=== PATIENT | female | born 1990 | race Caucasian/White ===

== ENCOUNTER 2016-04-18 17:28 | Observation (INO) ==
[2016-04-18 18:15] LABS: Bilirubin,Urine Negative (Negative); Blood,Urine Negative (Negative); Clarity,Urine Cloudy (Clear); Color,Urine Yellow (Yellow); Glucose,Urine (UA) Normal (Normal); Ketones,Urine Negative (Negative); Leukocyte Esterase,Urine Negative (Negative); Nitrite,Urine Negative (Negative); PH,Urine 7.5 pH Units (5.0-8.0); Protein,Urine Negative (Neg-Trace); Specific Gravity,Urine 1.011 (1.010-1.025); Urobilinogen,Urine Normal (Normal)
[2016-04-18 18:19] LABS: Bacteria,Urine Few per hpf (None-Few); RBC,Urine 0-3 per hpf (0-3); Squamous Epithelial Cell,Urine Many per lpf (None-Few)
--- NOTE | 2016-04-18 18:33 | OB/GYN Progress Note ---
Date of Encounter: 04/18/16 Time of Encounter: 18:30 - Assessment and Plan (1) 37 weeks gestation of Current Visit: Yes Status: Acute admit for observation (2) Nausea and vomiting in Current Visit: Yes Status: Acute triage for dehydration Subjective - Subjective Principal diagnosis: nausea and vomiting Interval history: Patient is 25 yo at 37w6d presents to labor and delivery with c/o nausea and vomiting since last week. Patient states she tried phenergan at home but was unable to keep it down. Patient reports +fm and irregular contractions. Patient denies LOF or vaginal bleeding, denies urinary symptoms. Antepartum ROS: movement normal, contractions, no loss of fluid, no vaginal bleeding Objective - Vital Signs Vital Signs: Intake and Output 04/18/16 04/18/16 04/18/16 07:59 15:59 23:59 Other: Weight 94.9 kg Patient Weight 04/18/16 23:59 Weight 94.9 kg - Exam FHR: auscultation normal, category 1 FHR comments: 145 bpm moderate variability + 15x15 accels no decels noted at this time. Abdomen: Present: normal appearance, soft, gravid Uterus: Present: normal, firm Cervical dilation: 1.5 per RN Cervix effacement: thick station: -2
[2016-04-18] MEDS ORDERED: Ondansetron ODT 4 MG TAB.RAPDIS SL PRN (18:36)
[2016-04-18 18:44] LABS: Hyaline Casts,Urine Few per lpf (None-Few)
--- NOTE | 2016-04-18 19:40 | Discharge Summary ---
Date of Encounter: 04/18/16 Time of Encounter: 19:42 - Discharge Diagnosis (1) 37 weeks gestation of Priority: Secondary Status: Acute (2) Nausea and vomiting in Priority: Primary Status: Acute (3) NST (non-stress test) reactive Priority: Primary Status: Acute Comments: reactive NST - Discharge Medications Prescriptions: Ondansetron [Zofran ODT] 8 mg SL Q6HR #10 tab.rapdis Home Medications: Tablet 1 tab PO DAILY 12/26/15 [History] Famotidine [Pepcid] 1 tab PO BID 04/18/16 [History] Ondansetron [Zofran ODT] 8 mg SL Q6HR #10 tab.rapdis 04/18/16 [Rx] Promethazine [Phenergan] 1 tab PO PRN PRN 04/18/16 [History] Allergies/Adverse Reactions: Allergies No Known Allergies Allergy (Verified 12/21/14 22:48) Data Procedures and tests throughout hospitalization: Laboratory Tests 04/18/16 18:05 Urine Color Yellow Urine Clarity Cloudy A Urine pH 7.5 Ur Specific Gladys 1.011 Urine Protein Negative Urine Glucose (UA) Normal Urine Ketones Negative Urine Blood Negative Urine Nitrite Negative Urine Bilirubin Negative Urine Urobilinogen Normal Ur Leukocyte Esterase Negative Urine Microscopic RBC 0-3 Urine Microscopic WBC 3-5 H Ur Squamous Epith Cells Many H Urine Bacteria Few Hyaline Casts Few Labs on day of discharge: Labs from last 24 hours 04/18/16 18:05 Urine Color Yellow Urine Clarity Cloudy A Urine pH 7.5 Ur Specific Gladys 1.011 Urine Protein Negative Urine Glucose (UA) Normal Urine Ketones Negative Urine Blood Negative Urine Nitrite Negative Urine Bilirubin Negative Urine Urobilinogen Normal Ur Leukocyte Esterase Negative Urine Microscopic RBC 0-3 Urine Microscopic WBC 3-5 H Ur Squamous Epith Cells Many H Urine Bacteria Few Hyaline Casts Few Date of admission: 04/18/16 17:28 - Patient Status Disposition: Home, Self-Care Condition: Good Functional capacity at discharge: independent ambulation - Discharge Instructions Follow Up With: Elizabeth Jean CNM [Non-Partnered Physician] - - Diet and Activity Activity: increase activity as tolerated Diet: regular diet 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 Patient given Zofran ODT. Patient reports she feels better and is ready to go home. Will sent home with a RX for Felice ODT. Patient to follow up as scheduled. Time Attestation: Total time spent providing and/or coordinating discharge services: Time Spent: Less than 30 minutes - VTE Reasons for not Prescribing Prophylaxis: Treatment not Indicated - Low risk for VTE
== END 2016-04-18 19:56 | disposition home or self-care (01) ==
LOC: 1NENULAB
PROVIDERS: ADMIT Obstetrics & Gynecology; ATTEND Obstetrics & Gynecology

== ENCOUNTER 2016-04-26 04:00 | Inpatient (IN) ==
[2016-04-26] MEDS ORDERED: Famotidine 20 MG/2 ML VIAL IVP PRN (04:26)
[2016-04-26] MEDS ORDERED: Metoclopramide 10 MG/2 ML VIAL IVP PRN (04:26)
[2016-04-26] MEDS ORDERED: Ringers Solution, Lactated 1,000 ML IVC SCH (04:30)
[2016-04-26] MEDS ORDERED: miSOPROStol 25 MCG TABLET PO ONE (04:40)
[2016-04-26] MEDS ORDERED: FLUZONE IM ONE (04:40)
[2016-04-26] MEDS ORDERED: Mag Hydrox/Al Hydrox/Simeth 30 ML UDC PO PRN ×2 (04:54→12:06)
[2016-04-26 04:56] LABS: Basophils % 0.2 %; Eosinophils # 0.2 K/mcL (0.0-0.6); Eosinophils % 1.8 %; Hematocrit 29.5 % (35.3-44.9); Hemoglobin 9.7 g/dL (11.5-15.4); Immature Granulocytes % 0.9 % (0-4); Lymphocytes # 2.7 K/mcL (0.6-4.6); Lymphocytes % 22.8 %; Mean Corpuscular HGB Conc 32.9 g/dL (31.6-35.5); Mean Corpuscular Hemoglobin 27.2 pg (28.0-33.3); Mean Corpuscular Volume 82.6 fL (83.0-100.0); Mean Platelet Volume 10.9 fL (9.4-12.4); Monocytes # 0.7 K/mcL (0.0-1.3); Monocytes % 6.2 %; Neutrophils # 8.1 K/mcL (1.6-8.9); Platelet Count 272 K/mcL (140-400); Red Blood Count 3.57 M/mcL (3.82-4.97); Red Cell Distribution Width 13.1 % (11.5-14.5); Segmented Neutrophils % 68.1 %
[2016-04-26] MEDS ORDERED: Mag Hydrox/Al Hydrox/Simeth 30 ML UDC PO ONE (06:00)
--- NOTE | 2016-04-26 07:54 | OB/GYN History & Physical ---
Date of Encounter: 04/26/16 Time of Encounter: 07:46 Assessment and Plan (1) 39 weeks gestation of Current visit: Yes Status: Acute Admit for IOL. Cytotec 50mcg given PO. AROM when able. GBS negative. Epidural when requested. Anticipate . (2) Placental abnormality in third trimester Current visit: Yes Status: Acute (3) Obesity affecting Current visit: Yes Status: Acute History of Present Illness Chief complaint: 39 weeks, elective IOL, grade III placenta HPI: Ms. Martinez is a 25 year old female presenting at 39 weeks for IOL. She was noted to have a grade III placenta and delivery before 40 weeks was recommended. Her has been complicated by obesity. Her blood type is A positive. Rubella immune. Serologies and GBS negative. Past Med Surg Social Fam HX - Past Medical History Medical history: kidney stones, migraine Psychiatric history: anxiety - Past Surgical History Surgical History: other - Social History Smoking Status: Current some day smoker Packs per day: .5 Smokeless Tobacco Status: No Alcohol use: none Drug use: none - Family History Mother Age: 42 Family Member Ethnicity: Non- Living Status: Still Living Hx Family Cardiac Disorders: No Hx Family Respiratory Disorders: No Hx Family Cancer: No Hx Family GI Disorders: No Hx Family Genitourinary Disorders: No Hx Family Endocrine Disorder: No Hx Family Musculoskeletal Disorders: No Hx Family Neuromuscular Disorders: No Hx Family Neurologic Disorders: No Hx Family HEENT Disorders: No Hx Family Autoimmune Disorders: No Hx Family Reproductive Disorders: No Hx Family Psychosocial Disorders: No Hx Family Medical Disorders: No Obstetrical History - Pregnancies : 2 Para: 1 Term: 1 Livin Medications and Allergies Tablet 1 tab PO DAILY 12/26/15 [History] Famotidine [Pepcid] 1 tab PO BID 04/18/16 [History] Ondansetron [Zofran ODT] 8 mg SL Q6HR #10 tab.rapdis 04/18/16 [Rx] Promethazine [Phenergan] 1 tab PO PRN PRN 04/18/16 [History] Allergies No Known Allergies Allergy (Verified 12/21/14 22:48) Review of System OB All systems PM: reviewed and no additional remarkable complaints except as stated Exam - Vital Signs Vital signs: Initial Vital Signs Pulse Resp BP 134 14 132/85 04/26/16 04:30 04/26/16 04:30 04/26/16 04:30 - Constitutional Constitutional: well developed, well nourished, no acute distress, average body habitus - HEENT HEENT: Mucus Membranes Moist - Lungs Respiratory exam: CTAB - Cardiovascular Cardiovascular exam: RRR, +S1, +S2 - Abdomen Abdomen: Present: gravid, non tender - Extremities Extremities exam: normal inspection - Vulva Vulva: bilateral: normal - Vagina Vagina: Present: normal moisture - Anus/Rectum Anus/Rectum: Present: normal perianal skin Results Result Diagrams: 04/26/16 04:45 Abnormal lab results WBC 11.9 K/mcL (4.3-11.1) H 04/26/16 04:45 RBC 3.57 M/mcL (3.82-4.97) L 04/26/16 04:45 Hgb 9.7 g/dL (11.5-15.4) L 04/26/16 04:45 Hct 29.5 % (35.3-44.9) L 04/26/16 04:45 MCV 82.6 fL (83.0-100.0) L 04/26/16 04:45 MCH 27.2 pg (28.0-33.3) L 04/26/16 04:45 All other labs normal. - VTE Reasons for not Prescribing Prophylaxis: Treatment not Indicated - Low risk for VTE
--- NOTE | 2016-04-26 08:21 | OB Labor Progress Note ---
Date of Encounter: 04/26/16 Time of Encounter: 08:21 Labor Progress Note - Subjective Subjective: Patient resting in bed, denies any pain at this time. Discussed POC with patient. Patient denies any questions or concerns. - Cervix Cervix: 3.5/80/-1 - Heart Tones Heart Tones: CAT 1 tracing - Cementon Cementon: irregular - Interventions Interventions: SVE, AROM large amount of clear fluid. Patient tolerated well. - Plan Plan: Continue labor management. Patient may have Nubain or Epidural for pain management.
[2016-04-26] MEDS ORDERED: Ondansetron 4 MG/2 ML VIAL IVP PRN (08:30)
[2016-04-26] MEDS ORDERED: Ringers Solution, Lactated 500 ML IVC ONE (08:30)
[2016-04-26] MEDS ORDERED: Epidural Premix (fent/bupiv) 110 ML EP SCH (08:30)
[2016-04-26] MEDS ORDERED: EPHEDrine 50 MG/ML VIAL IVP PRN (08:30)
--- NOTE | 2016-04-26 08:30 | Anesthesia Evaluation PreOp ---
Date of Encounter: 04/26/16 Time of Encounter: 08:28 - Past History Planned Operation: JERE Cardiac History: Denies any Significant Hx Pulmonary History: Smoker, Pack/yr (1/2PPD) OPHTHALMOLOGY TECHNICIAN History: Denies Any Significant HX Other Medical History: Renal (kidney stones) Anesthesia History: No Prior Anesthetic Complications, Past Anesthesia : Yes Alcohol Use: none Drug use: none Medications and Allergies Tablet 1 tab PO DAILY 12/26/15 [History] Famotidine [Pepcid] 1 tab PO BID 04/18/16 [History] Ondansetron [Zofran ODT] 8 mg SL Q6HR #10 tab.rapdis 04/18/16 [Rx] Promethazine [Phenergan] 1 tab PO PRN PRN 04/18/16 [History] Allergies No Known Allergies Allergy (Verified 12/21/14 22:48) - Meds/Allergy Pre-op Review Medications Reviewed: Yes Allergies Reviewed: Yes Beta Blockers on Current Med List: No Anesthesia Results - Labs 04/26/16 04:45 Anesthesia Exam Height: 1.55 Weight: 94.3 NPO (# of Hours): 6 Pain Scale: 7 Pain Scale Used: Numeric (1 - 10) - HEENT Pupil (Motor): Pupils equal Mallampati: II Teeth: Normal Oral Opening: Greater than 3 - OPHTHALMOLOGY TECHNICIAN LOC: Oriented OPHTHALMOLOGY TECHNICIAN Motor: Normal RUE, Normal LUE, Normal RLE, Normal LLE, Normal Face OPHTHALMOLOGY TECHNICIAN Sensory: Normal: RUE, LUE, RLE, LLE, Face - Cardiac Rhythm: Regular Murmur: None JVD: No Carotid Bruit: No - Pulmonary Breath Sounds: bilateral Clear Respiratory Effort: Symmetrical Anesthesia Assess/Plan ASA Score: 2 Modified Marydel Scale for Level of Consciousness: Cooperative, oriented, and tranquil Anesthetic Plan: General (plan b), Regional (plan a) Autologous Blood: Yes Monitoring Plan: Standard Monitors
[2016-04-26] MEDS ORDERED: Epidural Premix (fent/bupiv) 110 ML EP ONE (08:50)
[2016-04-26] MEDS ORDERED: Oxytocin 20 units/ LR 1000 mL 20 UNIT/1,000 ML BAG IVC SCH (12:30)
--- NOTE | 2016-04-26 12:30 | OB Labor Progress Note ---
Date of Encounter: 04/26/16 Time of Encounter: 12:28 Labor Progress Note - Subjective Subjective: Patient resting, patient reports she is starting to feel contractions. Discussed POC with patient. Patient educated on epidural button for pain relief. - Cervix Cervix: 5/80/-1 - Heart Tones Heart Tones: 135 bpm moderate variability +15x15 accels no decels noted. CAt. 1 tracing. - Reedsburg Reedsburg: 2-3 min apart - Interventions Interventions: SVE, IUPC placed without difficulty patient tolerated well. - Plan Plan: Continue labor management. Will start Pitocin if needed to achieve adequate labor pattern.
[2016-04-26] MEDS ORDERED: Oxytocin 20 units/ LR 1000 mL 20 UNIT/1,000 ML BAG IVC ONE ×2 (12:31→17:31)
--- NOTE | 2016-04-26 13:14 | Anesthesia Procedures ---
Date of Encounter: 04/26/16 Time of Encounter: 08:45 Procedures: Anesthesia - Epidural/Spinal Patient ID/Chart reviewed: Yes Patient examined: Yes OB Eval: Gestational age: 39 OB Eval: : 2 OB Eval: Hx Para: 1 OB Eval: Dilated at (cm): 4 OB Eval: Contractions: Non-stressed pattern Consent Obtained: Yes Supplemental Oxygen: None/Room Air Site Prep: Aseptic Technique, Sterile prep and drape, Povidone-Iodine 1% Patient position: upright Local Anesthetic: Lidocaine 1% Amount of Local Anesthetic used: 3 Touhy Needle Gauge: 18 Touhy Needle Depth (cm): 8 Catheter Depth at Skin (cm): 14 Test Dose (1.5% Lido + Epi): Volume given (mls): 5 Test Dose Result: Negative Loading Dose: Other: 10mls for epidural pharm bag premix solution Loading Dose Administered: Thru Catheter Infusion Med: 0.125% Bupivacaine w/ 2 mcg/ml Fentanyl Infusion Rate (mls/hr): [address]: Tegaderm, Tape Interspace Used: L3-L4 Loss of Resistance (ARBEN): Yes Blood: No CSF: No Paresthesia: No Procedure: pt tolerated procedure well. no complications. vss. see qs for complete vitals.
[2016-04-26] MEDS ORDERED: Lidocaine/EPI 1:200k 2% PF 10 ML VIAL ONE ×2 (14:00→14:24)
[2016-04-26] MEDS ORDERED: *HR* FentaNYL (PF) 100 MCG/2 ML VIAL ONE (14:00)
--- NOTE | 2016-04-26 15:10 | Anesthesia Progress Note ---
Date of Encounter: 04/26/16 Time of Encounter: 14:00 Anesthesia Note - Note Note: 04/26/16 15:08 called for increased pain during contractions. bolus given of 12ml of 2% lidocaine with epi with 100mcg fentanyl. pt states it is all back pain. dilated at 8 cm
[2016-04-26] MEDS ORDERED: Ibuprofen 600 MG TABLET PO ONE (15:24)
--- NOTE | 2016-04-26 15:33 | OB/GYN Procedure Note ---
Delivery - Delivery Date: 04/26/16 Provider: Daysi Moore (Geraldo Solorio assist) Intrapartum events: none Delivery induction: AROM, oxytocin, misoprostol Delivery monitor: external FHT, internal uterine Anesthesia: epidural Estimated Blood Loss: 300 - Infant (s) Infant A Infant Delivery Date: 04/26/16 Infant Delivery Time: 14:45 Presentation: vertex Position: CASIMIRO Gender: Female Viability: Viable Pounds: 6 Ounces: 5 Weight Gram: 2870 kg at 1 minute: 8 at 5 mins: 9 Shoulder Dystocia: not encountered Placenta: spontaneous, uterine exploration Cord: 3 umbilical vessels - Repair Episiotomy: none Laceration Description: Superficial (periurethral) - Complications Delivery complications: none Delivery comments: Called to LDR patient a rim but is unable to hold back from pushing. Patient progressed to complete, perineum was prepped and draped. Patient delivered female infant no nuchal, no meconium, no shoulder dystocia encountered. Cord was clamped and cut after pulsation ceased. Stella Hewitt D.O. at bedside and assisted with delivery. Only superficial lacerations were noted and did not require repair. Infant was placed skin to skin both Mother and baby are stable in recovery. - Disposition Mom disposition: stable in LDR disposition: stable in LDR
[2016-04-26] MEDS ORDERED: Benzocaine/Menthol 56 GM AEROSOL SPRAY TP PRN (17:31)
[2016-04-26] MEDS ORDERED: Acetaminophen 325 MG TABLET PO PRN (17:31)
[2016-04-26] MEDS ORDERED: Lanolin 7 G OINT...G. TP PRN (17:31)
[2016-04-26] MEDS ORDERED: Oxytocin 20 units/ LR 1000 mL 20 UNIT/1,000 ML BAG IV SCH (17:31)
[2016-04-26] MEDS: *HR* HYDROcodone/Acet 5/325 mg TABLET PO PRN (18:27)
[2016-04-27] MEDS: Ibuprofen 600 MG TABLET PO PRN ×3 (00:44→20:24)
[2016-04-27 03:29] LABS: Basophils % 0.2 %; Eosinophils # 0.2 K/mcL (0.0-0.6); Eosinophils % 1.1 %; Hematocrit 25.1 % (35.3-44.9); Immature Granulocytes % 0.5 % (0-4); Lymphocytes % 21.3 %; Mean Corpuscular HGB Conc 31.9 g/dL (31.6-35.5); Mean Corpuscular Hemoglobin 27.4 pg (28.0-33.3); Mean Platelet Volume 11.2 fL (9.4-12.4); Monocytes # 0.9 K/mcL (0.0-1.3); Monocytes % 6.2 %; Platelet Count 275 K/mcL (140-400); Red Blood Count 2.92 M/mcL (3.82-4.97); Red Cell Distribution Width 13.3 % (11.5-14.5); Segmented Neutrophils % 70.7 %
[2016-04-27] MEDS: *HR* HYDROcodone/Acet 5/325 mg TABLET PO PRN (06:27)
[2016-04-27] MEDS: Prenatal Vit/FA 1 EACH TABLET PO SCH (07:40)
--- NOTE | 2016-04-27 10:42 | OB/GYN Progress Note ---
Date of Encounter: 04/27/16 Time of Encounter: 10:40 - Assessment and Plan (1) Status post vaginal delivery Current Visit: Yes Status: Resolved patient doing well, baby having issues with latching so may stay one more night, ambulation encouraged, cont current inpt care. Subjective - Subjective Patient reports: appetite normal, voiding normally, pain well controlled, ambulating normally : other (lochia is light, tolerating PO intake without issues, having difficulty latching on) Objective - Latest Vital Signs Latest vital signs: Vital Signs Temp Pulse Pulse Resp BP Pulse Ox 04/27/16 07:52 98.1 F 92 92 16 115/80 97 04/27/16 04:16 98 F 100 16 130/70 98 04/27/16 01:15 97.9 F 98 18 118/78 98 04/26/16 19:40 98.5 F 93 16 113/74 98 04/26/16 18:30 97.6 F 102 16 118/79 98 04/26/16 17:30 98.2 F 110 16 120/68 99 Intake and Output 04/26/16 04/27/16 04/27/16 23:59 07:59 15:59 Intake Total 550 / 550 240 / 240 Output Total 200 / 200 700 / 700 Balance -200 / -200 -150 / -150 240 / 240 Intake: Oral 550 / 550 240 / 240 Output: Urine 200 / 200 700 / 700 Other: Meal Breakfast Percent of Meal Consumed 100% Weight 90.6 kg - Exam Lungs: bilateral: normal Chest: Normal S1, Normal S2 Extremities: Present: normal Abdomen: Present: normal appearance, soft Uterus: Present: normal - Labs Labs: Laboratory Results - last 24 hr 04/27/16 02:52 WBC 14.2 H RBC 2.92 L Hgb 8.0 L D Hct 25.1 L MCV 86.0 MCH 27.4 L MCHC 31.9 RDW 13.3 Plt Count 275 MPV 11.2 Immature Gran % 0.5 Seg Neutrophils % 70.7 Lymphocytes % 21.3 Monocytes % 6.2 Eosinophils % 1.1 Basophils % 0.2 Neutrophils # 10.0 H Lymphocytes # 3.0 Monocytes # 0.9 Eosinophils # 0.2 Basophils # 0.0
[2016-04-28] MEDS: Ibuprofen 600 MG TABLET PO PRN (03:29)
[2016-04-28] MEDS: Prenatal Vit/FA 1 EACH TABLET PO SCH (07:43)
[2016-04-28 08:12] VITALS: BP 108/73
--- NOTE | 2016-04-28 08:36 | Discharge Summary ---
Date of Encounter: 04/28/16 Time of Encounter: 08:34 - Discharge Diagnosis (1) Status post normal vaginal delivery Priority: Primary Status: Acute Comments: Patient is 2 days status post normal vaginal delivery. There was concerns with baby latching however patient reports baby has been doing well with bottle feeding. She reports that she is going well and the pain is controlled. She has been up ambulating appropriately. She is tolerating a normal diet and bowel /bladder function intact. Patient will be discharged home. - Discharge Medications Prescriptions: Breast Pump [BREAST PUMP] 1 each .ROUTE AD #1 each Ferrous Sulfate 325 mg PO DAILY 30 Days Home Medications: Tablet 1 tab PO DAILY 12/26/15 [History] Famotidine [Pepcid] 1 tab PO BID 04/18/16 [History] Ondansetron [Zofran ODT] 8 mg SL Q6HR #10 tab.rapdis 04/18/16 [Rx] Promethazine [Phenergan] 1 tab PO PRN PRN 04/18/16 [History] Breast Pump [BREAST PUMP] 1 each .ROUTE AD #1 each 04/28/16 [Rx] Ferrous Sulfate 325 mg PO DAILY 30 Days 04/28/16 [Rx] Allergies/Adverse Reactions: Allergies No Known Allergies Allergy (Verified 12/21/14 22:48) Data Procedures and tests throughout hospitalization: Laboratory Tests 04/26/16 04/27/16 04:45 02:52 WBC 11.9 H 14.2 H RBC 3.57 L 2.92 L Hgb 9.7 L 8.0 L D Hct 29.5 L 25.1 L MCV 82.6 L 86.0 MCH 27.2 L 27.4 L MCHC 32.9 31.9 RDW 13.1 13.3 Plt Count 272 275 MPV 10.9 11.2 Immature Gran % 0.9 0.5 Seg Neutrophils % 68.1 70.7 Lymphocytes % 22.8 21.3 Monocytes % 6.2 6.2 Eosinophils % 1.8 1.1 Basophils % 0.2 0.2 Neutrophils # 8.1 10.0 H Lymphocytes # 2.7 3.0 Monocytes # 0.7 0.9 Eosinophils # 0.2 0.2 Basophils # 0.0 0.0 Date of admission: 04/26/16 04:07 Primary care physician: Jillian White Consults: 04/26/16 17:31 Consult to Alligator Trapper [CONS] Routine Comment: Vaginal delivery, consult needed Discharging clinician: Deep Perez Anticipated date of discharge: 04/28/16 - Patient Status Disposition: Home, Self-Care Condition: Good Functional capacity at discharge: independent ambulation Overall status at discharge: patient is back to baseline - Discharge Instructions Instructions: Vaginal Delivery (DC) Follow Up With: Jillian White, CASEWORK SPECIALIST [Primary Care Provider] - - Diet and Activity Activity: increase activity as tolerated Diet: advance to your usual diet Hospital Course Reason for admission: induction of labor Delivery: Episiotomy: none Other procedures: none complications: none Hospital course: Ms Martinez is a 25yo female who presented at 39 weeks for induction of labor due to grade III placenta. Patient had successfully spontaneous vaginal delivery on 04/26/2016. There was some difficulty with baby latching however patient reports improvement with bottle feeding. Patient is doing well and will be discharged home today. Time Attestation: Total time spent providing and/or coordinating discharge services: Exam - Constitutional Vitals: Temp Pulse Resp BP Pulse Ox 97.6 F 71 16 108/73 97 04/28/16 07:30 04/28/16 07:30 04/28/16 07:30 04/28/16 07:30 04/27/16 20:25 General appearance IM: A&O X 3, no acute distress, answers questions appropriately - Respiratory Respiratory exam: Present: CTAB - Cardiovascular Cardiovascular exam IM: Present: RRR - GI/Abdominal GI/Abdominal exam IM: normal bowel sounds, tenderness - Extremities Exam Extremities exam IM: Present: full ROM - Neurological Exam Neurological exam: alert, CN II-XII intact, oriented X3
[2016-04-28] MEDS ORDERED: FLUZONE IM ONE (10:00)
== END 2016-04-28 11:45 | disposition home or self-care (01) | DRG 560 ==
LOC: 1NENULAB 04:07 → 1NENUOBS 17:30
PROVIDERS: ADMIT Registered Nurse; ATTEND Registered Nurse

== ENCOUNTER 2016-05-27 13:59 | Observation (INO) ==
[2016-05-27] MEDS ORDERED: *HR* HYDROmorphone (PF) 1 MG/ML SYRINGE IVP ONE (15:09)
[2016-05-27] MEDS ORDERED: 0.9 % Sodium Chloride 1,000 ML IVC ONE (15:09)
[2016-05-27] MEDS ORDERED: Ondansetron 4 MG/2 ML VIAL IVP ONE (15:09)
[2016-05-27 15:21] LABS: Bilirubin,Urine Negative (Negative); Blood,Urine Trace (Negative); Clarity,Urine Clear (Clear); Color,Urine Yellow (Yellow); Glucose,Urine (UA) Normal (Normal); Ketones,Urine Negative (Negative); Leukocyte Esterase,Urine Small (Negative); Nitrite,Urine Negative (Negative); Protein,Urine Negative (Neg-Trace); Specific Gravity,Urine 1.023 (1.010-1.025); Urobilinogen,Urine Normal (Normal)
[2016-05-27 15:25] LABS: Bacteria,Urine None Seen per hpf (None-Few); Hyaline Casts,Urine None Seen per lpf (None-Few); Squamous Epithelial Cell,Urine Many per lpf (None-Few)
[2016-05-27 15:30] LABS: Basophils % 0.1 %; Eosinophils # 0.4 K/mcL (0.0-0.6); Eosinophils % 4.7 %; Hematocrit 33.1 % (35.3-44.9); Hemoglobin 10.1 g/dL (11.5-15.4); Immature Granulocytes % 0.4 % (0-4); Lymphocytes # 2.7 K/mcL (0.6-4.6); Lymphocytes % 32.1 %; Mean Corpuscular HGB Conc 30.5 g/dL (31.6-35.5); Mean Corpuscular Hemoglobin 25.1 pg (28.0-33.3); Mean Corpuscular Volume 82.3 fL (83.0-100.0); Mean Platelet Volume 10.9 fL (9.4-12.4); Monocytes # 0.5 K/mcL (0.0-1.3); Monocytes % 5.4 %; Neutrophils # 4.8 K/mcL (1.6-8.9); Platelet Count 361 K/mcL (140-400); Red Blood Count 4.02 M/mcL (3.82-4.97); Red Cell Distribution Width 14.4 % (11.5-14.5); Segmented Neutrophils % 57.3 %
--- NOTE | 2016-05-27 15:30 | Emergency Department Note ---
Disposition Clinical Impression: Nephrolithiasis, Flank pain Disposition: Admitted As Inpatient Condition: Good Instructions: Kidney Stones (ED) Referrals: Jillian White CNP [Primary Care Provider] - Forms: Work/School Release, ED Satisfaction Letter General Adult HPI - General Chief complaint: ED Abdominal Pain Stated complaint: kidney stone, increased pain Source: patient Limitations: no limitations Nursing Notes Reviewed: Yes Vital Signs Reviewed: Yes - History of Present Illness HPI Narrative: 25 y/o female diagnosed with a 5mm stone in the left UVJ 2 [place] ago at [place]. She reports not taking her pain medication because she is breastfeading. She reports increased pain and emailed the urology office who recommeded coming to the ER. She had a long history of biliary colic and says she has had increased RUQ pain but is not currently having any pain there. She says her pain is still in the right flank. No fever or diarrhea. No new symptoms. Radiation: non-radiation Pain Severity: moderate Pain Scale: 7 Consistency: constant Improves with: nothing Worsens with: nothing Associated symptoms: Reports: denies other symptoms Treatments Prior to Arrival: none - Related Data Home Medications Medication Instructions Recorded Confirmed Tablet 1 tab PO DAILY 12/26/15 05/25/16 Famotidine [Pepcid] 1 tab PO BID 04/18/16 05/25/16 Previous Rx's Medication Instructions Recorded Breast Pump [BREAST PUMP] 1 each .ROUTE AD #1 each 04/28/16 Acetaminophen w/Cod 300-30 mg 1 each PO Q6HR #12 tablet 05/19/16 [Tylenol w/Codeine #3] Metoclopramide [Reglan] 10 mg PO QIDAC #30 tablet 05/19/16 Ondansetron HCl [Zofran] 4 mg PO Q6H #30 tablet 05/19/16 OxyCODONE/APAP 5/325 [Percocet 1 each PO Q6HR PRN #10 tablet 05/25/16 5/325 MG] Allergies Allergy/AdvReac Type Severity Reaction Status Date / Time No Known Allergies Allergy Verified 12/21/14 22:48 All systems ED: reviewed and negative except as stated. Constitutional: Denies: fever Eyes: Denies: vision change ENT ED: Denies: throat pain Cardiovascular: Denies: chest pain Respiratory: Denies: cough Gastrointestinal: Reports: nausea. Denies: abdominal pain, vomiting, diarrhea Genitourinary: Denies: dysuria Integumentary: Denies: rash Past Medical History - Past Medical History Medical history: Reports: kidney stones, migraine Surgical history: Reports: other Psychiatric history: Reports: anxiety TRACK SUPERVISOR history: Reports: no TRACK SUPERVISOR history - Social History Smoking Status: Former smoker Smokeless Tobacco Status: No Alcohol use: Reports: none Drug use: Reports: none Physical Exam - General Limitations: no limitations General appearance: alert - Head Head exam: atraumatic - Eye Eye exam: Present: normal appearance, PERRL, EOMI - ENT ENT exam: normal exam, normal oropharynx - Neck Neck exam: Present: normal inspection - Respiratory Respiratory exam: Present: normal lung sounds bilaterally. Absent: respiratory distress - Cardiovascular Cardiovascular exam: Present: regular rate, normal rhythm - Abdominal Exam Abdominal exam: Present: soft, Non-Tender. Absent: distention, guarding, Sal 's sign - Extremities Exam Extremities exam: Present: normal inspection - Back Exam Back exam: Present: CVA tenderness (L). Absent: CVA tenderness (R) - Neurological Exam Neurological exam: Present: alert, oriented X3 - Psychiatric Psychiatric exam: Present: normal affect, normal mood - Skin Skin exam: Present: warm, dry Course Course Narrative: Recent ER visit w/ dx of stone which explains her symptoms. Not currently having a gallbladder flare. She does have discoloration to her lower back which she reports has been there for years due to a heating pad. Will check kidney function and treat her symptoms, check urine and re-evaluate. - Reevaluation(s) Reevaluation #1: Spoke with Dr Eldridge who will accept the patient to his service for pain control and possible stone removal tomorrow Vital Signs Temperature 98.1 F 05/27/16 14:09 Pulse Rate 98 05/27/16 14:09 Respiratory Rate 18 05/27/16 14:09 Blood Pressure 128/61 05/27/16 14:09 O2 Sat by Pulse Oximetry 99 05/27/16 14:09 Temperature 98.1 F 05/27/16 14:09 Pulse Rate 92 05/27/16 14:58 Respiratory Rate 16 05/27/16 14:58 Blood Pressure 122/77 05/27/16 14:58 O2 Sat by Pulse Oximetry 99 05/27/16 14:58 Oxygen Delivery Oxygen Delivery Room Air Medical Decision Making - Medical Records Medical records reviewed: Yes I reviewed the patient's medical records. - Lab Data Lab results reviewed: Yes I reviewed the patient's lab results. Result diagrams: 05/27/16 15:17 Lab Results 05/27/16 05/27/16 05/27/16 Range/Units 15:06 15:06 15:17 WBC 8.4 (4.3-11.1) K/mcL RBC 4.02 (3.82-4.97) M/mcL Hgb 10.1 L (11.5-15.4) g/dL Hct 33.1 L (35.3-44.9) % MCV 82.3 L (83.0-100.0) fL MCH 25.1 L (28.0-33.3) pg MCHC 30.5 L (31.6-35.5) g/dL RDW 14.4 (11.5-14.5) % Plt Count 361 (140-400) K/mcL MPV 10.9 (9.4-12.4) fL Immature Gran % 0.4 (0-4) % Seg Neutrophils % 57.3 % Lymphocytes % 32.1 % Monocytes % 5.4 % Eosinophils % 4.7 % Basophils % 0.1 % Neutrophils # 4.8 (1.6-8.9) K/mcL Lymphocytes # 2.7 (0.6-4.6) K/mcL Monocytes # 0.5 (0.0-1.3) K/mcL Eosinophils # 0.4 (0.0-0.6) K/mcL Basophils # 0.0 (0.0-0.2) K/mcL Urine Color Yellow (Yellow) Urine Clarity Clear (Clear) Urine pH 6.0 (5.0-8.0) pH Units Ur Specific [place] 1.023 (1.010-1.025) Urine Protein Negative (Neg-Trace) mg/dL Urine Glucose (UA) Normal (Normal) mg/dL Urine Ketones Negative (Negative) mg/dL Urine Blood Trace H (Negative) Urine Nitrite Negative (Negative) Urine Bilirubin Negative (Negative) Urine Urobilinogen Normal (Normal) mg/dL Ur Leukocyte Esterase Small H (Negative) Urine Microscopic RBC 3-5 H (0-3) per hpf Urine Microscopic WBC 5-15 H (0-3) per hpf Ur Squamous Epith Cells Many H (None-Few) per lpf Urine Bacteria None Seen (None-Few) per hpf Hyaline Casts None Seen (None-Few) per lpf Ur Culture Indicated? YES A (NO) Urine Test Negative (Negative) - Radiology Data Radiology results reviewed: Yes I reviewed the patient's radiology results.
[2016-05-27] MEDS ORDERED: Ketorolac 30 MG/ML VIAL IVP ONE (15:33)
[2016-05-27 15:51] LABS: Albumin 3.5 g/dL (3.5-5.0); Albumin/Globulin Ratio 1.1 (1.1-2.2); Bilirubin,Direct 0.1 mg/dL (0.0-0.5); Bilirubin,Indirect 0.3 mg/dL (0.0-1.2); Bilirubin,Total 0.4 mg/dL (0.2-1.2); Globulin 3.3 g/dL (2.4-3.5); Total Protein 6.8 g/dL (6.0-8.3)
--- NOTE | 2016-05-27 16:32 | Emergency Department Note ---
Disposition Clinical Impression: Nephrolithiasis Disposition: Home, Self-Care Condition: Good Instructions: Kidney Stones (ED) Referrals: Jillian White CNP [Primary Care Provider] - Forms: ED Satisfaction Letter, Work/School Release General Adult HPI - General Chief complaint: ED Abdominal Pain Stated complaint: kidney stone, increased pain Source: patient Limitations: no limitations - History of Present Illness Pain Scale: 5 Improves with: nothing Worsens with: nothing Associated symptoms: Reports: denies other symptoms Treatments Prior to Arrival: none - Related Data Home Medications Medication Instructions Recorded Confirmed Tablet 1 tab PO DAILY 12/26/15 05/25/16 Famotidine [Pepcid] 1 tab PO BID 04/18/16 05/25/16 Previous Rx's Medication Instructions Recorded Breast Pump [BREAST PUMP] 1 each .ROUTE AD #1 each 04/28/16 Acetaminophen w/Cod 300-30 mg 1 each PO Q6HR #12 tablet 05/19/16 [Tylenol w/Codeine #3] Metoclopramide [Reglan] 10 mg PO QIDAC #30 tablet 05/19/16 Ondansetron HCl [Zofran] 4 mg PO Q6H #30 tablet 05/19/16 OxyCODONE/APAP 5/325 [Percocet 1 each PO Q6HR PRN #10 tablet 05/25/16 5/325 MG] Allergies Allergy/AdvReac Type Severity Reaction Status Date / Time No Known Allergies Allergy Verified 12/21/14 22:48 Constitutional: Denies: fever Eyes: Denies: vision change ENT ED: Denies: throat pain Cardiovascular: Denies: chest pain Respiratory: Denies: cough Gastrointestinal: Reports: nausea. Denies: abdominal pain, vomiting, diarrhea Genitourinary: Denies: dysuria Integumentary: Denies: rash Past Medical History - Past Medical History Medical history: Reports: kidney stones, migraine Surgical history: Reports: other Psychiatric history: Reports: anxiety FILM RECORDIST history: Reports: no FILM RECORDIST history - Social History Smoking Status: Former smoker Smokeless Tobacco Status: No Alcohol use: Reports: none Drug use: Reports: none Physical Exam - General Limitations: no limitations General appearance: alert Course Vital Signs Temperature 98.1 F 05/27/16 14:09 Pulse Rate 98 05/27/16 14:09 Respiratory Rate 18 05/27/16 14:09 Blood Pressure 128/61 05/27/16 14:09 O2 Sat by Pulse Oximetry 99 05/27/16 14:09 Temperature 98.1 F 05/27/16 14:09 Pulse Rate 76 05/27/16 15:56 Respiratory Rate 18 05/27/16 15:56 Blood Pressure 120/83 05/27/16 15:56 O2 Sat by Pulse Oximetry 97 05/27/16 15:56 Oxygen Delivery Oxygen Delivery Room Air Medical Decision Making - Lab Data Result diagrams: 05/27/16 15:17 Lab Results 05/27/16 05/27/16 05/27/16 Range/Units 15:06 15:06 15:17 WBC 8.4 (4.3-11.1) K/mcL RBC 4.02 (3.82-4.97) M/mcL Hgb 10.1 L (11.5-15.4) g/dL Hct 33.1 L (35.3-44.9) % MCV 82.3 L (83.0-100.0) fL MCH 25.1 L (28.0-33.3) pg MCHC 30.5 L (31.6-35.5) g/dL RDW 14.4 (11.5-14.5) % Plt Count 361 (140-400) K/mcL MPV 10.9 (9.4-12.4) fL Immature Gran % 0.4 (0-4) % Seg Neutrophils % 57.3 % Lymphocytes % 32.1 % Monocytes % 5.4 % Eosinophils % 4.7 % Basophils % 0.1 % Neutrophils # 4.8 (1.6-8.9) K/mcL Lymphocytes # 2.7 (0.6-4.6) K/mcL Monocytes # 0.5 (0.0-1.3) K/mcL Eosinophils # 0.4 (0.0-0.6) K/mcL Basophils # 0.0 (0.0-0.2) K/mcL Total Bilirubin (0.2-1.2) mg/dL Direct Bilirubin (0.0-0.5) mg/dL Indirect Bilirubin (0.0-1.2) mg/dL AST (5-34) Units/L ALT (0-55) Units/L Alkaline Phosphatase (38-126) Units/L Serum Total Protein (6.0-8.3) g/dL Albumin (3.5-5.0) g/dL Globulin (2.4-3.5) g/dL Albumin/Globulin Ratio (1.1-2.2) Urine Color Yellow (Yellow) Urine Clarity Clear (Clear) Urine pH 6.0 (5.0-8.0) pH Units Ur Specific [place] 1.023 (1.010-1.025) Urine Protein Negative (Neg-Trace) mg/dL Urine Glucose (UA) Normal (Normal) mg/dL Urine Ketones Negative (Negative) mg/dL Urine Blood Trace H (Negative) Urine Nitrite Negative (Negative) Urine Bilirubin Negative (Negative) Urine Urobilinogen Normal (Normal) mg/dL Ur Leukocyte Esterase Small H (Negative) Urine Microscopic RBC 3-5 H (0-3) per hpf Urine Microscopic WBC 5-15 H (0-3) per hpf Ur Squamous Epith Cells Many H (None-Few) per lpf Urine Bacteria None Seen (None-Few) per hpf Hyaline Casts None Seen (None-Few) per lpf Ur Culture Indicated? YES A (NO) Urine Test Negative (Negative) 05/27/16 Range/Units 15:17 WBC (4.3-11.1) K/mcL RBC (3.82-4.97) M/mcL Hgb (11.5-15.4) g/dL Hct (35.3-44.9) % MCV (83.0-100.0) fL MCH (28.0-33.3) pg MCHC (31.6-35.5) g/dL RDW (11.5-14.5) % Plt Count (140-400) K/mcL MPV (9.4-12.4) fL Immature Gran % (0-4) % Seg Neutrophils % % Lymphocytes % % Monocytes % % Eosinophils % % Basophils % % Neutrophils # (1.6-8.9) K/mcL Lymphocytes # (0.6-4.6) K/mcL Monocytes # (0.0-1.3) K/mcL Eosinophils # (0.0-0.6) K/mcL Basophils # (0.0-0.2) K/mcL Total Bilirubin 0.4 (0.2-1.2) mg/dL Direct Bilirubin 0.1 (0.0-0.5) mg/dL Indirect Bilirubin 0.3 (0.0-1.2) mg/dL AST 14 (5-34) Units/L ALT 8 (0-55) Units/L Alkaline Phosphatase 106 (38-126) Units/L Serum Total Protein 6.8 (6.0-8.3) g/dL Albumin 3.5 (3.5-5.0) g/dL Globulin 3.3 (2.4-3.5) g/dL Albumin/Globulin Ratio 1.1 (1.1-2.2) Urine Color (Yellow) Urine Clarity (Clear) Urine pH (5.0-8.0) pH Units Ur Specific [place] (1.010-1.025) Urine Protein (Neg-Trace) mg/dL Urine Glucose (UA) (Normal) mg/dL Urine Ketones (Negative) mg/dL Urine Blood (Negative) Urine Nitrite (Negative) Urine Bilirubin (Negative) Urine Urobilinogen (Normal) mg/dL Ur Leukocyte Esterase (Negative) Urine Microscopic RBC (0-3) per hpf Urine Microscopic WBC (0-3) per hpf Ur Squamous Epith Cells (None-Few) per lpf Urine Bacteria (None-Few) per hpf Hyaline Casts (None-Few) per lpf Ur Culture Indicated? (NO) Urine Test (Negative) Attestation Statement - Attestation Attestation: I examined this patient and my medical decision-making was reviewed with the STIPPLER/PA/Advanced Practice Nurse/Resident Physician. I agree with the documented findings, disposition and treatment plan as described except to the extent set forth below. Patient emergency department with flank pain. Was seen at [facility] a few days ago and diagnosed with a stone in the UVJ. States she does not like to take pain medicine because she is currently breast-feeding. States she emailed her urologist who told her to come in. Requesting lithotripsy and she has had in the past. On exam she sitting up in bed in no distress. Plan. Reviewed CT scan. Labs unremarkable. Will discuss with urology.
[2016-05-27 16:53] LABS: BUN/Creatinine Ratio 15 (6-26); Blood Urea Nitrogen 12 mg/dL (7-20); Carbon Dioxide 22 mEq/L (19-29); Chloride 108 mEq/L (98-109); Glucose 93 mg/dL (70-99); Osmolality,Calculated 289 (280-300); Potassium 4.2 mEq/L (3.5-4.5); Sodium 140 mEq/L (136-145); eGFR For African Americans > 60 (> 60); eGFR For Non-African Americans > 60 (> 60)
[2016-05-27] MEDS ORDERED: Ondansetron 4 MG/2 ML VIAL IVP PRN (17:28)
[2016-05-27] MEDS ORDERED: *HR* Promethazine 25 MG/ML VIAL IVP PRN (17:28)
[2016-05-27] MEDS ORDERED: *HR* HYDROmorphone (PF) 1 MG/ML SYRINGE IVP PRN (17:28)
[2016-05-27] MEDS ORDERED: *HR* HYDROcodone/Acet 5/325 mg TABLET PO PRN (17:28)
[2016-05-27] MEDS ORDERED: Naloxone 0.4 MG/ML INJ IVP PRN (17:28)
[2016-05-27] MEDS ORDERED: Ketorolac 15 MG/ML VIAL IVP PRN (17:28)
[2016-05-27] MEDS: 0.9 % Sodium Chloride 1,000 ML IVC SCH (19:42)
--- NOTE | 2016-05-27 20:20 | Urology History & Physical ---
Date of Encounter: 05/27/16 Time of Encounter: 20:18 Assessment and Plan (1) Ureteral stone with hydronephrosis Current Visit: Yes Status: Acute we discussed the size and position of the stone. we discussed trial of passage. pt wishes to proceed with a ureteroscopic stone extraction tomorrow if unable to pass the stone overnight. pt understands risk of the procedure - injury to the tract, stricture, UTI, stent complications. we also discussed that all meds given while in hospital may cross into her breast milk and could be passed to her infant. History of Present Illness Chief complaint: left flank pain HPI: Ms. Martinez is a 25 year old female hx of urolithiasis. 2 recent ER visits for left flank pain. 5 mm UVJ stone. she actually feels it has been present for over a month during her recent . no fever. Past Med Surg Social Fam HX - Past Medical History Medical history: kidney stones, migraine Psychiatric history: anxiety - Past Surgical History Surgical History: other - Social History Smoking Status: Former smoker Smokeless Tobacco Status: No Alcohol use: none Drug use: none - Family History Mother Family Member Ethnicity: Non- Living Status: Still Living Hx Family Cardiac Disorders: No Hx Family Respiratory Disorders: No Hx Family Cancer: No Hx Family GI Disorders: No Hx Family Genitourinary Disorders: Yes (kidney stones) Hx Family Endocrine Disorder: No Hx Family Neuromuscular Disorders: No Hx Family Neurologic Disorders: No Hx Family HEENT Disorders: No Hx Family Autoimmune Disorders: No Medications and Allergies Pnv95/Ferrous Fumarate/FA [ Vitamin Tablet] 1 each PO DAILY #0 [History] Famotidine [Pepcid] 20 mg PO BID 04/18/16 [History] OxyCODONE/APAP 5/325 [Percocet 5/325 MG] 1 each PO Q6HR PRN #10 tablet 05/25/16 [Rx] Ondansetron HCl [Zofran] 4 mg PO Q6H PRN 05/27/16 [History] Allergies No Known Allergies Allergy (Verified 12/21/14 22:48) Review of Systems - Constitutional no chills, no fever(s) - EENT Nose, mouth and throat: no dizziness - Cardiovascular no chest pain - Respiratory no cough - Gastrointestinal abdominal pain, nausea - Genitourinary Genitourinary: flank pain - Musculoskeletal back pain - Integumentary no erythema - Neurological no confusion - Psychiatric no anxiety - Hematologic/Lymphatic no easy bleeding - Allergic/Immunologic no throat swelling Exam Initial Vital Signs Temp Pulse Resp BP Pulse Ox 98.1 F 98 18 128/61 99 05/27/16 14:09 05/27/16 14:09 05/27/16 14:09 05/27/16 14:09 05/27/16 14:09 - General physical appearance Present: well developed, no distress - Eyes Present: PERRL - ENT Present: normal nares - Neck Present: no masses - Respiratory Present: normal respiratory effort - Cardiovascular Cardiovascular exam IM: RRR - Abdomen Abdomen: Present: soft - Integumentary Present: no rash - Neurologic Present: normal coordination. Absent: disoriented, confused - Musculoskeletal Present: normal gait Urology Results - Labs 05/27/16 15:17 05/27/16 15:18 Abnormal lab results Hgb 10.1 g/dL (11.5-15.4) L 05/27/16 15:17 Hct 33.1 % (35.3-44.9) L 05/27/16 15:17 MCV 82.3 fL (83.0-100.0) L 05/27/16 15:17 MCH 25.1 pg (28.0-33.3) L 05/27/16 15:17 MCHC 30.5 g/dL (31.6-35.5) L 05/27/16 15:17 Urine Blood Trace (Negative) H 05/27/16 15:06 Ur Leukocyte Esterase Small (Negative) H 05/27/16 15:06 Urine Microscopic RBC 3-5 per hpf (0-3) H 05/27/16 15:06 Urine Microscopic WBC 5-15 per hpf (0-3) H 05/27/16 15:06 Ur Squamous Epith Cells Many per lpf (None-Few) H 05/27/16 15:06 Ur Culture Indicated? YES (NO) A 05/27/16 15:06 All other labs normal.
[2016-05-27] MEDS: *HR* Morphine 2 MG/ML SYRINGE IVP PRN (21:42)
[2016-05-28] MEDS: 0.9 % Sodium Chloride 1,000 ML IVC SCH (04:53)
[2016-05-28] MEDS: *HR* Morphine 2 MG/ML SYRINGE IVP PRN ×2 (09:21→20:44)
[2016-05-28] MEDS ORDERED: *HR* FentaNYL (PF) 100 MCG/2 ML VIAL ONE ×2 (17:19→18:46)
[2016-05-28] MEDS ORDERED: *HR* Midazolam HCl 2 MG/2 ML VIAL ONE (17:19)
[2016-05-28] MEDS ORDERED: *HR* Propofol 200 MG/20 ML VIAL IVP ONE (17:19)
--- NOTE | 2016-05-28 17:23 | Anesthesia Evaluation PreOp ---
Date of Encounter: 05/28/16 Time of Encounter: 17:22 - Past History Planned Operation: L USE Cardiac History: Denies any Significant Hx Pulmonary History: Former smoker CAT AND DOG BATHER History: Other (migraines) Other Medical History: Renal (stones) Anesthesia History: No Prior Anesthetic Complications, Past Anesthesia (renal stone) Alcohol Use: none Drug use: none Medications and Allergies Pnv95/Ferrous Fumarate/FA [ Vitamin Tablet] 1 each PO DAILY #0 [History] Famotidine [Pepcid] 20 mg PO BID 04/18/16 [History] OxyCODONE/APAP 5/325 [Percocet 5/325 MG] 1 each PO Q6HR PRN #10 tablet 05/25/16 [Rx] Ondansetron HCl [Zofran] 4 mg PO Q6H PRN 05/27/16 [History] Allergies No Known Allergies Allergy (Verified 12/21/14 22:48) - Meds/Allergy Pre-op Review Medications Reviewed: Yes Allergies Reviewed: Yes Beta Blockers on Current Med List: No Anesthesia Results - Labs 05/27/16 15:17 05/27/16 15:18 Anesthesia Exam Last Vital Signs Temp 97.7 F 05/28/16 12:05 Pulse 67 05/28/16 12:05 Resp 16 05/28/16 12:05 BP 116/70 05/28/16 12:05 Pulse Ox 99 05/28/16 12:05 Weight: 86 kg NPO (# of Hours): >> 8 hrs - HEENT Pupil (Motor): Pupils equal, EOMI Mallampati: II Teeth: Normal Oral Opening: Greater than 3 - CAT AND DOG BATHER LOC: Oriented CAT AND DOG BATHER Motor: Normal RUE, Normal LUE, Normal RLE, Normal LLE, Normal Face CAT AND DOG BATHER Sensory: Normal: RUE, LUE, RLE, LLE, Face - Cardiac Rhythm: Regular Murmur: None - Pulmonary Breath Sounds: bilateral Clear Respiratory Effort: Symmetrical Anesthesia Assess/Plan ASA Score: 2 Modified Veronika Scale for Level of Consciousness: Cooperative, oriented, and tranquil Anesthetic Plan: General Monitoring Plan: Standard Monitors Recovery Plan: PACU
--- NOTE | 2016-05-28 18:16 | Discharge Summary ---
Date of Encounter: 05/28/16 Time of Encounter: 18:14 - Discharge Diagnosis (1) Ureteral stone with hydronephrosis Priority: Primary Status: Resolved Comments: s/p stone extraction - Discharge Medications Prescriptions: OxyCODONE/APAP 5/325 [Percocet 5/325 MG] 1 each PO Q6HR PRN #10 tablet PRN Reason: Pain Phenazopyridine HCl [Pyridium] 200 mg PO TIDAC PRN #15 tab PRN Reason: dysuria Home Medications: Pnv95/Ferrous Fumarate/FA [ Vitamin Tablet] 1 each PO DAILY #0 [History] Famotidine [Pepcid] 20 mg PO BID 04/18/16 [History] Ondansetron HCl [Zofran] 4 mg PO Q6H PRN 05/27/16 [History] OxyCODONE/APAP 5/325 [Percocet 5/325 MG] 1 each PO Q6HR PRN #10 tablet 05/28/16 [Rx] Phenazopyridine HCl [Pyridium] 200 mg PO TIDAC PRN #15 tab 05/28/16 [Rx] Allergies/Adverse Reactions: Allergies No Known Allergies Allergy (Verified 12/21/14 22:48) Labs on day of discharge: Labs from last 24 hours 05/28/16 05/28/16 12:10 06:11 POC Glucose 87 96 H Date of admission: 05/27/16 17:23 Primary care physician: Jillian White Discharging clinician: Beka Eldridge Anticipated date of discharge: 05/28/16 - Patient Status Disposition: Home, Self-Care Functional capacity at discharge: independent ambulation Overall status at discharge: patient is progressing back to baseline - Discharge Instructions Follow Up With: Jillian White CNP [Primary Care Provider] - Beka Eldridge MD [Partnered Physician] - (Pt can remove stent at home on friday or come to the urology office for removal. If patient removed stent at home on friday followup in 3-4 weeks. ) Additional Instructions: expect stent discomfort including urgency, frequency, blood in the urine and burning. it is normal to have some discomfort for a few days after the stent is removed call if fever over 101 pt can remove stent at home on friday by pulling on the string or come to the urology office. otherwise followup in a few weeks if she removes the stent at home. - Diet and Activity Activity: increase activity as tolerated Diet: advance to your usual diet - Hospital Course Hospital course: Ms. Martinez is a 25 year old female admitted with a 5 mm distal left ureteral stone. s/p stone extraction and stent. plan to discharge when pain controlled. - Time Spent with Patient Total time spent providing and/or coordinating discharge services: Exam Initial Vital Signs Temp Pulse Resp BP Pulse Ox 98.1 F 98 18 128/61 99 05/27/16 14:09 05/27/16 14:09 05/27/16 14:09 05/27/16 14:09 05/27/16 14:09 - General physical appearance Present: well developed, no distress
--- NOTE | 2016-05-28 18:46 | Operative Note ---
Date of procedure: 05/28/16 Pre-op diagnosis: left ureteral stone Post-op diagnosis: same Procedure: Left ureteroscopic stone extraction Left retrograde pyelogram Left ureteral stent placement Anesthesia: GETA Surgeon: Beka Eldridge Estimated blood loss (cc): 0 Specimen: Stone Condition: stable Disposition: PACU Procedure in Detail: PROCEDURE IN DETAIL: Patient was taken back to the operating room, positioned supine on the operating table. Anesthesia was applied without complication. They were moved into dorsal lithotomy. Careful attention was maintained to cushion all pressure points for patient's safety. They were prepped and draped in sterile fashion. Time-out was performed with the proper patient and procedure. A 21-Upper Sorbian rigid cystoscope was inserted into the bladder without difficulty. Systematic examination of bladder revealed no abnormalities. The ureteral orifice was cannulated using a 5-Upper Sorbian ureteral Catheter and a retrograde pyelogram was performed using Isovue. No filling defect was seen but she did have a dilated ureter.. At that point, a zip wire was placed through the 5-Upper Sorbian and confirmed in the renal pelvis with fluoroscopy. An 8- 10 dilator was then placed over the zip wire to passively dilate the ureteral orifice. A semi-rigid ureteroscope was carefully inserted into the bladder and guided into the ureteral oriface. I did not encounter a stone in the distal ureter. I eventually progressed to placing an 11 x 13 28 length access sheath to allow for passage of my flexible ureteroscope. I did encounter a stone in the lower pole calyx as seen on the CT scan and it was basket extracted without the need for laser lithotripsy the remaining collecting system and ureter were clear of stone. A 4.8 x 26 ureteral stent was placed over the zip wire under fluoroscopy without complication. The bladder was drained. The string was left attached to the stent and secured to the patient for easy removal in approximately 72 hours
[2016-05-28] MEDS ORDERED: Dexamethasone 4 MG/ML VIAL ONE (18:49)
[2016-05-28] MEDS ORDERED: Ondansetron 4 MG/2 ML VIAL ONE (18:49)
[2016-05-28] MEDS ORDERED: *HR* Promethazine 25 MG/ML VIAL IVP PRN ×2 (18:54→20:13)
[2016-05-28] MEDS ORDERED: *HR* Morphine 2 MG/ML SYRINGE IVP PRN (18:54)
--- NOTE | 2016-05-28 20:00 | Anesthesia Evaluation Post Op ---
Date of Encounter: 05/28/16 Time of Encounter: 19:30 - Vital Signs Vital Signs: Vital Signs/O2 Sat, Most Current Temp Pulse Resp BP Pulse Ox 97.1 F L 63 14 125/85 100 05/28/16 19:40 05/28/16 19:40 05/28/16 19:40 05/28/16 19:40 05/28/16 19:40 - Lungs Lungs: Clear Ascult./Percussion - Airway Airway: Non-obstructed - Cardiovascular Regular Rate - Mental Status Mental Status: Asleep with brisk response to light stimulation - Pain Pain Scale: 3 Pain Scale used: Numeric (1 - 10) - Nausea Vomiting Nausea Vomiting: Not Present - Hydration Hydration: NPO, Has not voided - Discharge PostOp Status: Transfer Patient to floor
[2016-05-28] MEDS ORDERED: 0.9 % Sodium Chloride 1,000 ML IVC SCH (20:13)
[2016-05-28] MEDS ORDERED: Ondansetron 4 MG/2 ML VIAL IVP PRN (20:13)
[2016-05-28] MEDS ORDERED: Ketorolac 15 MG/ML VIAL IVP PRN (20:13)
[2016-05-28] MEDS ORDERED: *HR* HYDROcodone/Acet 5/325 mg TABLET PO PRN (20:13)
[2016-05-28] MEDS ORDERED: *HR* HYDROmorphone (PF) 1 MG/ML SYRINGE IVP PRN (20:13)
[2016-05-28] MEDS ORDERED: Naloxone 0.4 MG/ML INJ IVP PRN (20:13)
[2016-05-28] MEDS: Famotidine 20 MG TABLET PO SCH (20:44)
[2016-05-29] MEDS: *HR* Morphine 2 MG/ML SYRINGE IVP PRN (03:04)
[2016-05-29] MEDS ORDERED: Bisacodyl 10 MG RECTAL SUPPOSITORY RC PRN (06:46)
--- NOTE | 2016-05-29 06:48 | Urology Progress Note ---
Date of Encounter: 05/29/16 Time of Encounter: 06:47 - Assessment and Plan (1) Ureteral stone with hydronephrosis Current Visit: Yes Status: Resolved Assessment and plan: dulcolax suppository bc of feelings of constipation. still OK for discharge today Progress Note Subjective: still having pain Narrative: pt with more than expected stent discomfort Objective Initial Vital Signs Temp Pulse Resp BP Pulse Ox 98.1 F 98 18 128/61 99 05/27/16 14:09 05/27/16 14:09 05/27/16 14:09 05/27/16 14:09 05/27/16 14:09 - General physical appearance Present: well developed, no distress - Labs 05/27/16 15:17 05/27/16 15:18 Consult Discharge Plan - Plan Additional Instructions: expect stent discomfort including urgency, frequency, blood in the urine and burning. it is normal to have some discomfort for a few days after the stent is removed call if fever over 101 pt can remove stent at home on friday by pulling on the string or come to the urology office. otherwise followup in a few weeks if she removes the stent at home. Referrals: Jillian White CNP [Primary Care Provider] - Beka Eldridge MD [Partnered Physician] - (Pt can remove stent at home on friday or come to the urology office for removal. If patient removed stent at home on friday followup in 3-4 weeks. ) Prescriptions: OxyCODONE/APAP 5/325 [Percocet 5/325 MG] 1 each PO Q6HR PRN #10 tablet PRN Reason: Pain Phenazopyridine HCl [Pyridium] 200 mg PO TIDAC PRN #15 tab PRN Reason: dysuria
[2016-05-29 07:22] VITALS: BP 137/93
[2016-05-29] MEDS: Famotidine 20 MG TABLET PO SCH (08:16)
[2016-05-29] MEDS ORDERED: Prenatal Vit/FA 1 EACH TABLET PO SCH (09:00)
[2016-05-29] MEDS ORDERED: *HR* OxyCODONE/APAP 5/325 TABLET PO ONE (10:18)
== END 2016-05-29 13:45 | disposition home or self-care (01) ==
LOC: 3ANU 13:59 → EMEROO 13:59 → 3ANU 17:38
PROVIDERS: ADMIT Urology; ATTEND Urology

== ENCOUNTER 2016-06-15 08:44 | Observation (INO) ==
[2016-06-15] MEDS ORDERED: Ketorolac 30 MG/ML VIAL IVP ONE (09:20)
[2016-06-15] MEDS ORDERED: 0.9 % Sodium Chloride 1,000 ML IVC ONE (09:20)
[2016-06-15] MEDS ORDERED: Pantoprazole 40 MG VIAL IVP ONE (09:21)
--- NOTE | 2016-06-15 09:24 | Emergency Department Note ---
Disposition Clinical Impression: Cholecystitis Disposition: Admitted As Inpatient Condition: Good Abdominal Pain HPI - General Chief Complaint: ED Abdominal Pain Stated Complaint: Gallbladder Attack Time Seen by Provider: 06/15/16 09:04 Source: patient Mode of arrival: ambulatory Limitations: no limitations Nursing Notes Reviewed: Yes Vital Signs Reviewed: Yes - History of Present Illness HPI Narrative: Patient here for evaluation of epigastric and right upper quadrant abdominal pain. Patient states symptoms going on for approximately 2 hours. Patient has history of similar episodes going on since delivery of her son in April. Episodes have been increasing in frequency to 2 times a week and lasting approximately one hour. She is here today for evaluation secondary to pain not resolving per usual. Patient has nausea vomiting and decreased appetite. No blood or bile in the vomit. Pain Scale: 9 - Related Data Home Medications Medication Instructions Recorded Confirmed Pnv95/Ferrous Fumarate/FA 1 each PO DAILY #0 12/26/15 05/27/16 [ Vitamin Tablet] Famotidine [Pepcid] 20 mg PO BID 04/18/16 05/27/16 Ondansetron HCl [Zofran] 4 mg PO Q6H PRN 05/27/16 05/27/16 Previous Rx's Medication Instructions Recorded OxyCODONE/APAP 5/325 [Percocet 1 each PO Q6HR PRN #10 tablet 05/28/16 5/325 MG] Phenazopyridine HCl [Pyridium] 200 mg PO TIDAC PRN #15 tab 05/28/16 Allergies Allergy/AdvReac Type Severity Reaction Status Date / Time No Known Allergies Allergy Verified 06/15/16 09:05 Constitutional: Denies: fever, chills, weakness Cardiovascular: Denies: chest pain, palpitations, dyspnea on exertion Respiratory: Denies: cough, dyspnea Gastrointestinal: Reports: abdominal pain, nausea, vomiting. 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 Absent : tenderness - Respiratory Respiratory exam: Present: normal lung sounds bilaterally. Absent: respiratory distress, wheezes - Cardiovascular Cardiovascular exam: Present: regular rate, normal rhythm - Abdominal Exam Abdominal exam: Present: soft, tenderness, guarding Abdominal tenderness: Present: RUQ, epigastrium, moderate - Extremities Exam Extremities exam: Present: normal inspection. Absent: tenderness - Neurological Exam Neurological exam: Present: alert, oriented X3 - Psychiatric Psychiatric exam: Present: normal affect, normal mood - Skin Skin exam: Present: warm, dry Course - Reevaluation(s) Reevaluation #1: Patient's pain is better but not resolved. - Consultations Consultation #1: Discussed with Dr. Cha. Patient's pain has been controlled in the emergency department; however this is her second bounce back in being evaluated for similar symptoms. Recommend admission at this time. Vital Signs Temperature 98.0 F 06/15/16 09:01 Pulse Rate 98 06/15/16 09:01 Respiratory Rate 20 06/15/16 09:01 Blood Pressure 127/89 06/15/16 09:01 O2 Sat by Pulse Oximetry 95 06/15/16 09:01 Temperature 98.0 F 06/15/16 09:01 Pulse Rate 72 06/15/16 12:10 Respiratory Rate 16 06/15/16 12:10 Blood Pressure 113/75 06/15/16 12:10 O2 Sat by Pulse Oximetry 95 06/15/16 09:01 Oxygen Delivery Oxygen Delivery Room Air Abdominal Pain - Lab Data Result diagrams: 06/15/16 09:27 06/15/16 09:27 Lab Results 06/15/16 06/15/16 06/15/16 Range/Units 09:27 09:27 09:52 WBC 9.8 (4.3-11.1) K/mcL RBC 4.46 (3.82-4.97) M/mcL Hgb 10.6 L (11.5-15.4) g/dL Hct 35.4 (35.3-44.9) % MCV 79.4 L (83.0-100.0) fL MCH 23.8 L (28.0-33.3) pg MCHC 29.9 L (31.6-35.5) g/dL RDW 14.9 H (11.5-14.5) % Plt Count 331 (140-400) K/mcL MPV 10.7 (9.4-12.4) fL Immature Gran % 0.2 (0-4) % Seg Neutrophils % 57.5 % Lymphocytes % 27.5 % Monocytes % 5.7 % Eosinophils % 8.6 % Basophils % 0.5 % Neutrophils # 5.6 (1.6-8.9) K/mcL Lymphocytes # 2.7 (0.6-4.6) K/mcL Monocytes # 0.6 (0.0-1.3) K/mcL Eosinophils # 0.8 H (0.0-0.6) K/mcL Basophils # 0.1 (0.0-0.2) K/mcL Immature Plt Fraction 4.2 (1.1-6.1) % Sodium 139 (136-145) mEq/L Potassium 4.1 (3.5-4.5) mEq/L Chloride 106 (98-109) mEq/L Carbon Dioxide 24 (19-29) mEq/L BUN 14 (7-20) mg/dL Creatinine 0.90 (0.57-1.11) mg/dL Est GFR ( Amer) > 60 (> 60) Est GFR (Non-Af Amer) > 60 (> 60) BUN/Creatinine Ratio 16 (6-26) Glucose 98 (70-99) mg/dL Calculated Osmolality 288 (280-300) Calcium 9.1 (8.6-10.8) mg/dL Total Bilirubin 0.3 (0.2-1.2) mg/dL Direct Bilirubin 0.1 (0.0-0.5) mg/dL Indirect Bilirubin 0.2 (0.0-1.2) mg/dL AST 21 (5-34) Units/L ALT 13 (0-55) Units/L Alkaline Phosphatase 122 (38-126) Units/L Serum Total Protein 7.5 (6.0-8.3) g/dL Albumin 3.8 (3.5-5.0) g/dL Globulin 3.7 H (2.4-3.5) g/dL Albumin/Globulin Ratio 1.0 L (1.1-2.2) Lipase 15 (8-78) Units/L Urine Color Yellow (Yellow) Urine Clarity Cloudy A (Clear) Urine pH 6.0 (5.0-8.0) pH Units Ur Specific Eugene 1.025 (1.010-1.025) Urine Protein Trace (Neg-Trace) mg/dL Urine Glucose (UA) Normal (Normal) mg/dL Urine Ketones Negative (Negative) mg/dL Urine Blood Moderate H (Negative) Urine Nitrite Negative (Negative) Urine Bilirubin Negative (Negative) Urine Urobilinogen Normal (Normal) mg/dL Ur Leukocyte Esterase Small H (Negative) Urine Microscopic RBC 15-30 H (0-3) per hpf Urine Microscopic WBC 5-15 H (0-3) per hpf Ur Squamous Epith Cells Many H (None-Few) per lpf Urine Bacteria Few (None-Few) per hpf Hyaline Casts None Seen (None-Few) per lpf Ur Culture Indicated? YES A (NO) Urine Test (Negative) Urine Opiates Screen (Lkjaqp=147) ng/mL Ur Barbiturates Screen (Yuzusz=057) ng/mL Ur Phencyclidine Scrn (Cutoff=25) ng/mL Ur Amphetamines Screen (Mmvgwe=6332) ng/mL U Benzodiazepines Scrn (Ukfggp=794) ng/mL Urine Cocaine Screen (Cutoff= 300) ng/mL U Marijuana (THC) Screen (Cutoff = 50) ng/mL 06/15/16 06/15/16 Range/Units 09:52 09:52 WBC (4.3-11.1) K/mcL RBC (3.82-4.97) M/mcL Hgb (11.5-15.4) g/dL Hct (35.3-44.9) % MCV (83.0-100.0) fL MCH (28.0-33.3) pg MCHC (31.6-35.5) g/dL RDW (11.5-14.5) % Plt Count (140-400) K/mcL MPV (9.4-12.4) fL Immature Gran % (0-4) % Seg Neutrophils % % Lymphocytes % % Monocytes % % Eosinophils % % Basophils % % Neutrophils # (1.6-8.9) K/mcL Lymphocytes # (0.6-4.6) K/mcL Monocytes # (0.0-1.3) K/mcL Eosinophils # (0.0-0.6) K/mcL Basophils # (0.0-0.2) K/mcL Immature Plt Fraction (1.1-6.1) % Sodium (136-145) mEq/L Potassium (3.5-4.5) mEq/L Chloride (98-109) mEq/L Carbon Dioxide (19-29) mEq/L BUN (7-20) mg/dL Creatinine (0.57-1.11) mg/dL Est GFR ( Amer) (> 60) Est GFR (Non-Af Amer) (> 60) BUN/Creatinine Ratio (6-26) Glucose (70-99) mg/dL Calculated Osmolality (280-300) Calcium (8.6-10.8) mg/dL Total Bilirubin (0.2-1.2) mg/dL Direct Bilirubin (0.0-0.5) mg/dL Indirect Bilirubin (0.0-1.2) mg/dL AST (5-34) Units/L ALT (0-55) Units/L Alkaline Phosphatase (38-126) Units/L Serum Total Protein (6.0-8.3) g/dL Albumin (3.5-5.0) g/dL Globulin (2.4-3.5) g/dL Albumin/Globulin Ratio (1.1-2.2) Lipase (8-78) Units/L Urine Color (Yellow) Urine Clarity (Clear) Urine pH (5.0-8.0) pH Units Ur Specific Eugene (1.010-1.025) Urine Protein (Neg-Trace) mg/dL Urine Glucose (UA) (Normal) mg/dL Urine Ketones (Negative) mg/dL Urine Blood (Negative) Urine Nitrite (Negative) Urine Bilirubin (Negative) Urine Urobilinogen (Normal) mg/dL Ur Leukocyte Esterase (Negative) Urine Microscopic RBC (0-3) per hpf Urine Microscopic WBC (0-3) per hpf Ur Squamous Epith Cells (None-Few) per lpf Urine Bacteria (None-Few) per hpf Hyaline Casts (None-Few) per lpf Ur Culture Indicated? (NO) Urine Test Negative (Negative) Urine Opiates Screen Negative (Yafbsf=809) ng/mL Ur Barbiturates Screen Negative (Kobhmn=731) ng/mL Ur Phencyclidine Scrn Negative (Cutoff=25) ng/mL Ur Amphetamines Screen Negative (Oxypjn=4397) ng/mL U Benzodiazepines Scrn Negative (Ptlclv=552) ng/mL Urine Cocaine Screen Negative (Cutoff= 300) ng/mL U Marijuana (THC) Screen Negative (Cutoff = 50) ng/mL Attestation Statement - Attestation Attestation: Patient was seen with resident physician. I reviewed the history, physical, assessment and plan, and agree with the findings. I also personally evaluated this patient and had [id number] time with this patient. 25-year-old female patient presents with right upper quadrant and midepigastric abdominal pain. She has had the symptoms for some time now and has been seen multiple times for same complaint. Has not had resolution of problem. States that episodes last usually approximately 1 hour but today's episode lasted greater than 2 hours which prompted her visit to the emergency department. She is anxious about finding a specific diagnosis for her complaints. She does take Pepcid for acid reflux other medications related to the stomach. On examination heart and lungs normal. Abdomen is soft there is tenderness in the right upper quadrant and midepigastric area, this tenderness is lessened when the patient is distracted. Neurologically the patient's intact. Laboratory data did not reveal any significant abnormalities. Urinalysis showed possible mild UTI, CT abdomen and pelvis will be obtained to rule out any anatomic abnormalities that need corrected. Cholecystitis was identified on CT scan. Though mild this is the patient's multiple visits to health care providers for the same problem. We discussed with Dr. medeiros. He agreed to accept the patient for admission for pain management and possible surgical intervention. Hemodynamically she was stable through her time in the emergency department. I agree with the resident physician assessment and plan.
[2016-06-15] MEDS: Ondansetron 4 MG/2 ML VIAL IVP ONE ×2 (09:31→12:45)
[2016-06-15 09:34] LABS: Basophils # 0.1 K/mcL (0.0-0.2); Basophils % 0.5 %; Eosinophils # 0.8 K/mcL (0.0-0.6); Eosinophils % 8.6 %; Hematocrit 35.4 % (35.3-44.9); Hemoglobin 10.6 g/dL (11.5-15.4); Immature Granulocytes % 0.2 % (0-4); Immature Platelets 4.2 % (1.1-6.1); Lymphocytes # 2.7 K/mcL (0.6-4.6); Lymphocytes % 27.5 %; Mean Corpuscular HGB Conc 29.9 g/dL (31.6-35.5); Mean Corpuscular Hemoglobin 23.8 pg (28.0-33.3); Mean Corpuscular Volume 79.4 fL (83.0-100.0); Mean Platelet Volume 10.7 fL (9.4-12.4); Monocytes # 0.6 K/mcL (0.0-1.3); Monocytes % 5.7 %; Neutrophils # 5.6 K/mcL (1.6-8.9); Platelet Count 331 K/mcL (140-400); Red Blood Count 4.46 M/mcL (3.82-4.97); Red Cell Distribution Width 14.9 % (11.5-14.5); Segmented Neutrophils % 57.5 %
[2016-06-15 09:48] LABS: Alanine Aminotransferase 13 Units/L (0-55); Albumin 3.8 g/dL (3.5-5.0); Alkaline Phosphatase 122 Units/L (38-126); Aspartate Amino Transferase 21 Units/L (5-34); BUN/Creatinine Ratio 16 (6-26); Bilirubin,Direct 0.1 mg/dL (0.0-0.5); Bilirubin,Indirect 0.2 mg/dL (0.0-1.2); Bilirubin,Total 0.3 mg/dL (0.2-1.2); Blood Urea Nitrogen 14 mg/dL (7-20); Calcium 9.1 mg/dL (8.6-10.8); Carbon Dioxide 24 mEq/L (19-29); Chloride 106 mEq/L (98-109); Globulin 3.7 g/dL (2.4-3.5); Glucose 98 mg/dL (70-99); Lipase 15 Units/L (8-78); Osmolality,Calculated 288 (280-300); Potassium 4.1 mEq/L (3.5-4.5); Sodium 139 mEq/L (136-145); Total Protein 7.5 g/dL (6.0-8.3); eGFR For African Americans > 60 (> 60); eGFR For Non-African Americans > 60 (> 60)
[2016-06-15 10:01] LABS: Bilirubin,Urine Negative (Negative); Blood,Urine Moderate (Negative); Clarity,Urine Cloudy (Clear); Color,Urine Yellow (Yellow); Glucose,Urine (UA) Normal (Normal); Ketones,Urine Negative (Negative); Leukocyte Esterase,Urine Small (Negative); Nitrite,Urine Negative (Negative); Protein,Urine Trace mg/dL (Neg-Trace); Specific Gravity,Urine 1.025 (1.010-1.025); Urobilinogen,Urine Normal (Normal)
[2016-06-15 10:03] LABS: Bacteria,Urine Few per hpf (None-Few); Hyaline Casts,Urine None Seen per lpf (None-Few); RBC,Urine 15-30 per hpf (0-3); Squamous Epithelial Cell,Urine Many per lpf (None-Few)
[2016-06-15 10:08] LABS: Amphetamine Screen,Urine Negative ng/mL (Cutoff=1000); Barbiturate Screen,Urine Negative ng/mL (Cutoff=200); Benzodiazepines Screen,Urine Negative ng/mL (Cutoff=200); Cannabinoid Screen,Urine Negative ng/mL (Cutoff = 50); Cocaine Screen,Urine Negative ng/mL (Cutoff= 300); Opiate Screen,Urine Negative ng/mL (Cutoff=300); Phencyclidine Screen,Urine Negative ng/mL (Cutoff=25)
[2016-06-15] MEDS ORDERED: GI Cocktail 40 ML EACH PO ONE (10:39)
[2016-06-15] MEDS ORDERED: *HR* HYDROmorphone (PF) 1 MG/ML SYRINGE IV ONE (12:16)
[2016-06-15] MEDS ORDERED: Ondansetron 4 MG/2 ML VIAL IVP ONE ×2 (12:16→21:37)
[2016-06-15] MEDS ORDERED: *HR* HYDROmorphone (PF) 1 MG/ML SYRINGE IV PRN (12:39)
[2016-06-15] MEDS ORDERED: 0.9 % Sodium Chloride 1,000 ML IV SCH (12:45)
[2016-06-15] MEDS: Ondansetron 4 MG/2 ML VIAL IVP SCH ×2 (14:51→19:33)
--- NOTE | 2016-06-15 16:44 | General Surg History&Physical ---
Date of Encounter: 06/15/16 Time of Encounter: 15:50 History of Present Illness Chief complaint: right upper abdominal pain; acute cholecystitis, cholelithiasis HPI: Ms. Martinez is a 25 year old female, approx 2 months post referred to Surgical Services after presenting to [facility] ED with approximately 36 hour history of severe right upper quadrant abdominal pain. She describes "4 episodes" right upper quadrant abdominal pain yesterday becoming much more severe this morning with nausea and vomiting. This prompted the patient to present to the emergency department. Patient denies any associated fever, chills, or jaundice. Blood work was fairly unremarkable white count of 9.8. Hemoglobin 10.6 with hematocrit 35.4 consistent with recent /delivery. Electrolytes, BUN, creatinine, LFTs were all within normal limits. CT abdomen and pelvis demonstrated an 8 mm calcification in the inferior pole of the right kidney. There was no hydronephrosis or urinary tract obstruction. The gallbladder was described as mildly thickened with several pericholecystic inflammation suggestive of acute cholecystitis. No gallstones or biliary ductal dilatation was evident. The bowel pattern and the appendix were normal. Past medical history: Unremarkable Surgical history: Renal cyst excision; kidney stone extraction. Allergies: No known drug allergies Medications: Pepcid 20 mg by mouth twice a day Social history: Patient is G2, P2 (5 years, and 2 months); patient denies any alcohol or illicit drug use. She is a former smoker - patient quit smoking during . Family history: Sister with gallbladder disease Physical examination: Age-appropriate female resting comfortably in her hospital bed; the patient is in no acute distress at the present time. Afebrile, 97.8; pulse 68, respirations 14, blood pressure 128/87. sPO2 on room air 100% Skin: Warm, multiple cutaneous tattoos without obvious jaundice; sclera anicteric Lungs: Clear to auscultation; no abdominal pain with deep inspiration; no audible wheezes or rales Cardiac: Regular rate, no appreciable murmur Breasts: Lactating Abdomen: Soft with minimal tenderness in the right upper quadrant. No discernible intra-abdominal masses. No rebound. Multiple striae consistent with recent . Active bowel sounds. Extremities without clubbing cyanosis or edema Impression: 25-year-old female, approx 2 months post , referred to surgical services after presenting to [facility] ED with approximately a 36 hour history of severe right upper quadrant abdominal pain, nausea and vomiting. There were radiologic findings suggestive of acute cholecystitis prompting the patient's admission in preparation for surgery. An ultrasound of the gallbladder completed after admission demonstated gallstones with minimal wall thickening, up to 3 mm was reported. No pericholecystic fluid as suggested on CT was identified. No ductal dilatation. The liver demonstrated normal echogenicity. The sonographic findings are consistent with biliary colic due to the presence of gallstones. The patient is still symptomatic and per the ED physician this represents a second ED presentation for similar symptoms. The patient is a reasonable candidate for laparoscopic cholecystectomy but understands that an open cholecystectomy may become necessary. Risks of surgery including hemorrhage, infection, intra-abdominal abscess, bile leak, injury to adjacent, vessels, organs, bowel. Postcholecystectomy diarrhea is also possible it has been discussed. The patient is willing to proceed with surgery as she does not wish to undergo recurrent symptoms. Consent has been obtained. Past Med Surg Social Fam HX - Past Medical History Medical history: kidney stones, migraine Psychiatric history: anxiety - Past Surgical History Surgical History: other - Social History Smoking Status: Light tobacco smoker Packs per day: <1 Smokeless Tobacco Status: No Alcohol use: none Drug use: none - Family History Mother Family Member Ethnicity: Non- Living Status: Still Living Hx Family Cardiac Disorders: No Hx Family Respiratory Disorders: No Hx Family Cancer: No Hx Family GI Disorders: No Hx Family Genitourinary Disorders: Yes (kidney stones) Hx Family Endocrine Disorder: No Hx Family Neuromuscular Disorders: No Hx Family Neurologic Disorders: No Hx Family HEENT Disorders: No Hx Family Autoimmune Disorders: No Medications and Allergies Pnv95/Ferrous Fumarate/FA [ Vitamin Tablet] 1 tab PO DAILY #0 12/26/15 [History] Famotidine [Pepcid] 20 mg PO BID 04/18/16 [History] Allergies No Known Allergies Allergy (Verified 06/15/16 09:05) Review of Systems All systems PM: A 10-system review of systems was performed and is negative for pertinent findings except as documented above in the HPI. General Surgery Exam Initial Vital Signs Temp Pulse Resp BP Pulse Ox 98.0 F 98 20 127/89 95 06/15/16 09:01 06/15/16 09:01 06/15/16 09:01 06/15/16 09:01 06/15/16 09:01 Results - Labs 06/15/16 09:27 06/15/16 09:27 Abnormal lab results Hgb 10.6 g/dL (11.5-15.4) L 06/15/16 09:27 MCV 79.4 fL (83.0-100.0) L 06/15/16 09:27 MCH 23.8 pg (28.0-33.3) L 06/15/16 09:27 MCHC 29.9 g/dL (31.6-35.5) L 06/15/16 09:27 RDW 14.9 % (11.5-14.5) H 06/15/16 09:27 Eosinophils # 0.8 K/mcL (0.0-0.6) H 06/15/16 09:27 Globulin 3.7 g/dL (2.4-3.5) H 06/15/16 09:27 Albumin/Globulin Ratio 1.0 (1.1-2.2) L 06/15/16 09:27 Urine Clarity Cloudy (Clear) A 06/15/16 09:52 Urine Blood Moderate (Negative) H 06/15/16 09:52 Ur Leukocyte Esterase Small (Negative) H 06/15/16 09:52 Urine Microscopic RBC 15-30 per hpf (0-3) H 06/15/16 09:52 Urine Microscopic WBC 5-15 per hpf (0-3) H 06/15/16 09:52 Ur Squamous Epith Cells Many per lpf (None-Few) H 06/15/16 09:52 Ur Culture Indicated? YES (NO) A 06/15/16 09:52 All other labs normal.
[2016-06-15] MEDS ORDERED: *HR* HYDROmorphone (PF) 1 MG/ML SYRINGE IVP PRN ×2 (17:05→23:56)
[2016-06-15] MEDS ORDERED: Albuterol 2.5 MG/3 ML NEBULIZER IH ONE (20:32)
[2016-06-15] MEDS ORDERED: Albuterol 2.5 MG/3 ML NEBULIZER ONE (20:35)
[2016-06-15] MEDS ORDERED: Ringers Solution, Lactated 1,000 ML IVC SCH (20:45)
--- NOTE | 2016-06-15 21:03 | Anesthesia Evaluation PreOp ---
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 Other Medical History: Denies Any Significant HX Anesthesia History: No Prior Anesthetic Complications : No (2 months post , ) Alcohol Use: none Drug use: none Medications and Allergies Pnv95/Ferrous Fumarate/FA [ Vitamin Tablet] 1 tab PO DAILY #0 12/26/15 [History] Famotidine [Pepcid] 20 mg PO BID 04/18/16 [History] Allergies No Known Allergies Allergy (Verified 06/15/16 09:05) - Meds/Allergy Pre-op Review Medications Reviewed: Yes Allergies Reviewed: Yes Beta Blockers on Current Med List: No Anesthesia Results - Labs 06/15/16 09:27 06/15/16 09:27 Anesthesia Exam O2 Sat Height 1.55 m Weight 86.183 kg O2 Sat by Pulse Oximetry 100 O2 Sat by Pulse Oximetry 100 O2 Sat by Pulse Oximetry 100 O2 Sat by Pulse Oximetry 95 Vital Signs Temp Pulse Resp BP Pulse Ox 98.0 F 98 20 127/89 95 06/15/16 09:01 06/15/16 09:01 06/15/16 09:01 06/15/16 09:01 06/15/16 09:01 Height: 5'1 Weight: 190 lbs NPO (# of Hours): MN Pain Scale: 0 - HEENT Pupil (Motor): Pupils equal, EOMI Mallampati: II Teeth: Normal Oral Opening: Greater than 3 - SALARY AND WAGE ADMINISTRATOR LOC: Oriented SALARY AND WAGE ADMINISTRATOR Motor: Normal RUE, Normal LUE, Normal RLE, Normal LLE, Normal Face SALARY AND WAGE ADMINISTRATOR Sensory: Normal: RUE, LUE, RLE, LLE, Face - Cardiac Rhythm: Regular Murmur: None JVD: No Carotid Bruit: No - Pulmonary Breath Sounds: bilateral Clear Respiratory Effort: Symmetrical Anesthesia Assess/Plan ASA Score: 2, E Modified Veronika Scale for Level of Consciousness: Cooperative, oriented, and tranquil Anesthetic Plan: General Monitoring Plan: Standard Monitors Recovery Plan: PACU (Discussed GA, agrees to proceed)
[2016-06-15] MEDS ORDERED: Famotidine 20 MG/2 ML VIAL ONE (21:06)
[2016-06-15] MEDS ORDERED: Acetaminophen IV 1,000 MG/100 ML INFUS..BTL ONE (21:06)
[2016-06-15] MEDS ORDERED: *HR* FentaNYL (PF) 100 MCG/2 ML VIAL ONE (21:10)
[2016-06-15] MEDS ORDERED: *HR* Propofol 200 MG/20 ML VIAL IVP ONE (21:10)
[2016-06-15] MEDS ORDERED: Ondansetron 4 MG/2 ML VIAL ONE (21:11)
[2016-06-15] MEDS ORDERED: *HR* Rocuronium Bromide 50 MG/5 ML VIAL ONE (21:11)
[2016-06-15] MEDS ORDERED: Dexamethasone 4 MG/ML VIAL ONE (21:11)
[2016-06-15] MEDS ORDERED: Lidocaine -MPF 2% 2 ML VIAL ONE (21:11)
[2016-06-15] MEDS ORDERED: *HR* Morphine 2 MG/ML SYRINGE IVP PRN (21:37)
[2016-06-15] MEDS ORDERED: Bupivacaine/EPI 1:200k 0.25%PF 30 ML VIAL ONE (21:45)
[2016-06-15] MEDS ORDERED: *HR* Morphine 10 MG/ML VIAL ONE (22:09)
[2016-06-15] MEDS ORDERED: Ketorolac 30 MG/ML VIAL ONE (22:09)
[2016-06-15] MEDS ORDERED: Neostigmine Methylsulfate 3 MG/3 ML SYRINGE ONE (22:46)
--- NOTE | 2016-06-15 23:16 | Operative Note ---
Date of procedure: 06/15/16 Pre-op diagnosis: acute cholecystitis, cholelithiasis Post-op diagnosis: other (cholecystitis, cholelithiasis) Procedure: laparoscopic cholecystectomy, intra operative cholangiogram Complications: none apparent Anesthesia: GETA Local Anesthetics: 0.25% Sensorcaine HCL with Epinephrine 1:200,000 SubQ (cc) ( 15 mL) Surgeon: Rancho Cha Estimated blood loss (cc): 2 IV fluids (cc): 500 Specimen: gallbladder Condition: stable Disposition: PACU Procedure in Detail: The patient was brought to the operating room where she was placed supine upon the operating room table. The patient was appropriately identified as to person and procedure. The accuracy of this information was confirmed by the procedure team. The patient was intubated and anesthetized under the supervision of Dr. Lyle Foley. The abdomen was prepped and draped in the usual sterile fashion. Several milliliters of 0.25% bupivacaine with 1-200,000 units epinephrine was infiltrated into the infraumbilical skin. A small transverse incision was created, dissection was carried to the fascia. The fascia was filtrated with several milliliters 0.25% bupivacaine with 1-200,000 epinephrine. The fascia was grasped, elevated and incised. An 11 mm Xcel port was established. The rigid laparoscope was placed within the obturator to visualize passage through the layers of the anterior abdominal wall. Once the abdominal cavity was accessed, the obturator was replaced by the rigid laparoscope, the abdomen was insufflated with gaseous carbon dioxide. There was no obvious visible injury from establishing the port. Gallbladder was grasped and retracted. The hepatoduodenal ligament was dissected. The cystic artery was identified, skeletonized, clipped twice proximally, once distally and divided. The cystic duct was identified, skeletonized and clipped near the infundibulum of the gallbladder. Via separate percutaneous insertion site, a Taut cholangiogram catheter was introduced. The cystic duct was incised and the catheter inserted. Using C-arm fluoroscopy a cholangiogram was then completed demonstrating a normal-appearing common bile duct. There was free flow of contrast into the duodenum, there were no filling defects. The proximal hepatobiliary tree appeared normal. The cholangiocatheter was removed. The cystic duct was doubly clipped and divided. The gallbladder was then dissected from the liver bed using the Ethicon harmonic madelin. Once from the liver bed, the gallbladder was placed in an endoscopic pouch and removed via the infraumbilical opening. The gallbladder was retrieved and sent to pathology for analysis. The liver bed was inspected for adequate hemostasis. Once this was assured, the pneumoperitoneum was evacuated and instrumentation removed. The fascia of the infraumbilical opening was closed with an interrupted [id number] 0 Vicry using S retractors. The skin edges of the port sites were approximated with subcuticular 4-0 Vicryl. The incisions were sealed with Dermabond dermal adhesive. The patient was taken to PACU in stable condition. Needle, sponge, and instrument counts were correct at the close of the case. Total volume of 0.25% bupivacaine with 1-200,000 units used during this case, 15 mL.
--- NOTE | 2016-06-15 23:44 | Anesthesia Evaluation Post Op ---
Date of Encounter: 06/15/16 Time of Encounter: 23:45 - Vital Signs Vital Signs: Vital Signs/O2 Sat/Glucose, Most Current Temp Pulse Resp BP Pulse Ox 06/15/16 23:36 98.5 F 59 16 111/60 98 06/15/16 23:26 58 16 114/69 98 06/15/16 23:16 57 16 118/68 99 06/15/16 23:06 98.4 F 67 14 118/76 96 06/15/16 20:00 97.6 F 66 16 123/81 100 - Lungs Lungs: Clear Ascult./Percussion - Airway Airway: Non-obstructed - Cardiovascular Regular Rate - Mental Status Mental Status: Alert & Oriented, Answers Appropriately - Pain Pain Scale: 0 - Nausea Vomiting Nausea Vomiting: Not Present - Hydration Hydration: NPO - Discharge PostOp Status: Transfer Patient to floor
[2016-06-15] MEDS ORDERED: Ondansetron 4 MG/2 ML VIAL IVP PRN (23:56)
[2016-06-15] MEDS ORDERED: Acetaminophen 325 MG TABLET PO PRN (23:56)
[2016-06-15] MEDS ORDERED: Ringers Solution, Lactated 500 ML IVC ONE (23:56)
[2016-06-16] MEDS: *HR* OxyCODONE/APAP 5/325 TABLET PO PRN ×2 (03:14→09:42)
[2016-06-16 06:32] VITALS: BP 114/68
[2016-06-16 07:03] LABS: Basophils % 0.1 %; Eosinophils % 0.1 %; Hematocrit 33.5 % (35.3-44.9); Hemoglobin 9.9 g/dL (11.5-15.4); Immature Granulocytes % 0.4 % (0-4); Lymphocytes # 0.9 K/mcL (0.6-4.6); Mean Corpuscular HGB Conc 29.6 g/dL (31.6-35.5); Mean Corpuscular Hemoglobin 23.7 pg (28.0-33.3); Mean Corpuscular Volume 80.1 fL (83.0-100.0); Mean Platelet Volume 11.3 fL (9.4-12.4); Monocytes # 0.1 K/mcL (0.0-1.3); Monocytes % 0.6 %; Neutrophils # 7.1 K/mcL (1.6-8.9); Platelet Count 298 K/mcL (140-400); Red Blood Count 4.18 M/mcL (3.82-4.97); Segmented Neutrophils % 87.8 %
[2016-06-16] MEDS ORDERED: Prenatal Vit/FA 1 EACH TABLET PO SCH (09:00)
--- NOTE | 2016-06-16 12:41 | General Surgery Progress Note ---
Date of Encounter: 06/16/16 Time of Encounter: 12:36 Subjective Patient reports: feels better, tolerating a regular diet Narrative: General Surgery Progress Note / discharge summary Postoperative day 1: Patient complaining of "a little soreness" but feels better than preop. Afebrile, vital signs stable with pulse 87, respirations 18 , blood pressure 114/68. Postop white count 8.1; hemoglobin 9.9 and hematocrit 33.5 - slightly diminished most likely due to perioperative fluids. Lungs: Clear to auscultation Abdomen: Soft with minimal upper quadrant tenderness as expected. Port sites clean and dry. Impression: cholecystitis, cholelithiasis, biliary colic. Operative pathology pending Patient indicating that she is much improved and would like to be discharged. She appears clinically stable. Status adequate for discharge Follow-up in the office as an outpatient, 06/21/16; patient to call office in a.m. to make this appointment. Regular diet Patient may shower, wash incisions with soap and water Today as tolerated; lifting limited to less than 20 pounds. Tylenol, Motrin, Advil, Excedrin as needed for pain Prescription for Percocet 5/325, #10, one every 6 hours as needed for pain not relieved by [id number] medication. Objective Vital Signs - Last 8 Hours Temp Pulse Resp BP Pulse Ox 06/16/16 06:31 97.8 F 87 18 114/68 99 Intake and Output 06/15/16 06/16/16 06/16/16 22:59 07:59 15:59 Output Total Balance Output: Estimated Blood Loss - Labs 06/16/16 05:08 06/15/16 09:27 - VTE Documentation of Mechanical Device: Intermittent pneumatic compression device Consult Discharge Plan - Plan Referrals: Jillian White, [facility] [Primary Care Provider] -
--- NOTE | 2016-06-16 12:45 | Discharge Summary ---
Outpatient Proc Discharge Plan - Plan Additional Instructions: regular diet activity as tolerated, lifting limited to less than 20# Patient may shower, wash incision with soap and water follow up in the office, 06/21/2016 - patient to call office in AM to make appointment Tylenol, ibuprofen, Motrin, Advil etc as needed for pain Prescription for Percocet 5/325, #10. 1 every 6 hours as needed for pain not relieved by over the counter medications. Prescriptions: OxyCODONE/APAP 5/325 [Percocet 5/325 MG] 1 each PO Q6HR PRN #10 tablet PRN Reason: Pain Home Medications: Pnv95/Ferrous Fumarate/FA [ Vitamin Tablet] 1 tab PO DAILY #0 12/26/15 [History] Famotidine [Pepcid] 20 mg PO BID 04/18/16 [History] Acetaminophen [Tylenol] 650 mg PO Q6HR PRN #0 tablet 06/16/16 [Rx] OxyCODONE/APAP 5/325 [Percocet 5/325 MG] 1 each PO Q6HR PRN #10 tablet 06/16/16 [Rx]
== END 2016-06-16 14:10 | disposition home or self-care (01) ==
LOC: 3NENU 08:44 → EMEROO 08:44 → 3NENU 13:26
PROVIDERS: ADMIT Surgery; ATTEND Surgery

== ENCOUNTER 2018-10-13 14:49 | Inpatient (IN) ==
[2018-10-13] MEDS ORDERED: *HR* Meperidine 25 MG/ML SYRINGE IVP PRN ×2 (14:59→17:21)
[2018-10-13] MEDS ORDERED: *HR* Promethazine 25 MG/ML VIAL IVP PRN (14:59)
[2018-10-13] MEDS ORDERED: Ringers Solution, Lactated 1,000 ML IVC SCH (15:00)
[2018-10-13] MEDS ORDERED: Ringers Solution, Lactated 1,000 ML ONE (15:08)
--- NOTE | 2018-10-13 15:28 | OB/GYN Progress Note ---
Date of Encounter: 10/13/18 Time of Encounter: 15:25 - Assessment and Plan (1) 21 weeks gestation of Current Visit: Yes Status: Acute Minutes observation for back pain and possible kidney stone (2) Back pain affecting in second trimester Current Visit: Yes Status: Acute IV pain medication ordered Retroperitoneal ultrasound ordered Subjective - Subjective Principal diagnosis: Severe back pain / possible kidney stone Interval history: Patient reports today from the OB office prior to being seen due to severe pain. She states this pain started Friday and is fairly certain this kidney stone a she has an extensive history of kidney stones during and outside of . She states she was in the ER at [facility] on Friday, 2 days ago, for the same pain and was told to follow-up with her OB care provider as scheduled. She was given oxycodone and Zofran at the ER. She reports today with severe pain in the suprapubic region as well as her back and has CVA tenderness on the right side. An IV has been initiated with a fluid bolus as well as pain medication and a retroperitoneal ultrasound has been ordered. Antepartum ROS: movement normal, no loss of fluid, no vaginal bleeding, no contractions Objective - Exam FHR: auscultation normal FHR comments: FHR per doppler due to gestational age. Auscultation: bilateral: normal Abdomen: Present: normal appearance, soft, gravid. Absent: distention, tenderness Uterus: Present: normal
[2018-10-13] MEDS ORDERED: *HR* Meperidine 50 MG/ML SYRINGE IVP PRN (15:30)
[2018-10-13 15:41] LABS: Basophils % 0.3 %; Eosinophils # 0.2 K/mcL (0.0-0.6); Eosinophils % 2.1 %; Immature Granulocytes % 0.4 % (0-4); Lymphocytes # 1.9 K/mcL (0.6-4.6); Lymphocytes % 19.9 %; Mean Corpuscular HGB Conc 32.4 g/dL (31.6-35.5); Mean Corpuscular Hemoglobin 28.5 pg (28.0-33.3); Mean Corpuscular Volume 88.1 fL (83.0-100.0); Monocytes # 0.4 K/mcL (0.0-1.3); Monocytes % 4.1 %; Neutrophils # 7.1 K/mcL (1.6-8.9); Platelet Count 330 K/mcL (140-400); Red Blood Count 3.86 M/mcL (3.82-4.97); Red Cell Distribution Width 13.7 % (11.5-14.5); Segmented Neutrophils % 73.2 %; White Blood Count 9.7 K/mcL (4.3-11.1)
[2018-10-13 15:53] LABS: Amphetamine Screen,Urine Negative ng/mL (Cutoff=1000); Barbiturate Screen,Urine Negative ng/mL (Cutoff=200); Benzodiazepines Screen,Urine Negative ng/mL (Cutoff=200); Cannabinoid Screen,Urine Negative ng/mL (Cutoff = 50); Cocaine Screen,Urine Negative ng/mL (Cutoff= 300); Opiate Screen,Urine Negative ng/mL (Cutoff=300); Phencyclidine Screen,Urine Negative ng/mL (Cutoff=25)
[2018-10-13] MEDS: Ringers Solution, Lactated 1,000 ML IVC SCH ×2 (17:55→21:08)
[2018-10-13] MEDS: *HR* Meperidine 50 MG/ML SYRINGE IVP PRN ×2 (17:55→22:06)
--- NOTE | 2018-10-13 18:21 | OB/GYN History & Physical ---
Date of Encounter: 10/13/18 Time of Encounter: 18:16 Assessment and Plan (1) 21 weeks gestation of Current visit: Yes Status: Acute Admit to observation for kidney stone management. - IV hydration - FHT per doppler q shift - I&O - Dr. Gallego consulted for plan of care (2) Back pain affecting in second trimester Current visit: Yes Status: Acute Admit overnight to observation - Demerol q 4 hr prn for pain - position for comfort (3) with nephrolithiasis in second trimester Current visit: Yes Status: Acute Admit to observation overnight - Consult urology - Spoke with Dr. Dove and he will see patient in the AM. - Strain urine - Treat pain & nausea/vomiting History of Present Illness Chief complaint: Kidney stones, 21 weeks gestation HPI: Ms. Martinez is a 28 year old female at 21w5d who arrives with complaint of severe pain she feels is related to a kidney stone. She has an extensive history of kidney stones in the past which have required surgical removal and lithotripsy. She reports her first kidney stone was at age 15. She was seen in the [facility] office today for her anatomy scan but was in too much pain to stay for the portion of the visit and came straight to L&D for evaluation. She was in obvious pain on arrival. She does report positive movement, denies and fluid leakage and bleeding. Past Med Surg Social Fam HX - Past Medical History Source: patient Medical history: GERD, kidney stones, migraine, other Additional medical history: REPEATED ED VISITS Psychiatric history: anxiety - Past Surgical History Surgical History: cholecystectomy, other Additional surgical history: Lipostripsey. stone removal - Social History Smoking Status: Former smoker Smokeless Tobacco Status: No Alcohol use: none Drug use: none Current living situation: Home - Independent, With Family Activity Level: Independent ambulation Recent Out of Country Travel Within the Last 8 Weeks: No Exposure or Possible Exposure to Illness During Travel: No - Family History Mother Adopted: [place]: [place] Age: 45 Family Member Ethnicity: Non- Living Status: Still Living Hx Family Cardiac Disorders: No Hx Family Respiratory Disorders: No Hx Family Cancer: No Hx Family GI Disorders: No Hx Family Genitourinary Disorders: No Hx Family Endocrine Disorder: No Hx Family Neuromuscular Disorders: No Hx Family Neurologic Disorders: No Hx Family HEENT Disorders: No Hx Family Autoimmune Disorders: No Hx Family Medical Disorders: Yes (migraines) Obstetrical History - Pregnancies : 3 Para: 2 Term: 2 : 0 Ab's: 0 Livin Medications and Allergies Ondansetron ODT [Zofran ODT] 4 mg SL Q6HR PRN #8 tab.rapdis 10/10/18 [Rx] OxyCODONE/APAP 5/325 [Percocet 5/325 MG] 1 each PO Q6HR PRN 4 Days #14 tablet 10/10/18 [Rx] Pnv95/Ferrous Fumarate/FA [ Vitamin Tablet] 1 each PO DAILY 10/10/18 [History] Allergy/AdvReac Type Severity Reaction Status Date / Time hydrocodone [From Vicodin] AdvReac Vomiting Verified 10/13/18 15:10 Review of System OB All systems PM: reviewed and no additional remarkable complaints except as stated - Genitourinary Genitourinary: change in urinary stream, dysuria, flank pain, pelvic pain Exam - Constitutional Constitutional: well developed, well nourished, average body habitus, moderate distress - HEENT HEENT: Normocephaly, Mucus Membranes Moist - Neck Neck exam: full ROM - Lungs Respiratory exam: CTAB - Cardiovascular Cardiovascular exam: RRR, +S1, +S2 - Breasts Breast: bilateral: normal - Abdomen Abdomen: Present: bowel sounds normal, gravid, non tender Abdomen detail: right lower quadrant: tenderness - Extremities Extremities exam: full ROM, normal capillary refill, normal inspection - Vulva Vulva: bilateral: normal - Vagina Vagina: Present: normal moisture - Uterus Uterus exam: Present: normal size, normal contour Results Result Diagrams: 10/13/18 15:22 Abnormal lab results Hgb 11.0 g/dL (11.5-15.4) L 10/13/18 15:22 Hct 34.0 % (35.3-44.9) L 10/13/18 15:22 All other labs normal. - VTE Reasons for not Prescribing Prophylaxis: Treatment not Indicated - Low risk for VTE
[2018-10-14] MEDS: Ringers Solution, Lactated 1,000 ML IVC SCH ×3 (01:10→13:13)
[2018-10-14] MEDS: *HR* Meperidine 50 MG/ML SYRINGE IVP PRN ×5 (03:10→20:28)
[2018-10-14] MEDS: *HR* Promethazine 25 MG/ML VIAL IVP PRN ×4 (03:46→16:39)
--- NOTE | 2018-10-14 08:19 | OB/GYN Progress Note ---
Date of Encounter: 10/14/18 Time of Encounter: 08:17 - Assessment and Plan (1) 21 weeks gestation of Current Visit: Yes Status: Acute FHT reassuring on doppler auscultation. (2) with nephrolithiasis in second trimester Current Visit: Yes Status: Acute Chemistry and UA/culture added this am. Ongoing management per urology. Subjective - Subjective Interval history: Pt admitted for suspected non-obstructing kidney stone. She has been getting IV pain medications and zofran. She reports her pain goes from an 8 to at 2 with medication. She has been seen by Urology who will manage the plan for treating her stone. Antepartum ROS: movement normal, no loss of fluid, no vaginal bleeding, no contractions Objective - Vital Signs Vital Signs: Vital Signs Temp Pulse Resp BP Pulse Ox 10/14/18 03:32 97.6 F 76 14 106/72 99 10/14/18 00:00 97.7 F 105 18 108/74 10/13/18 20:00 97.8 F 72 16 104/69 100 Intake and Output 10/13/18 10/14/18 10/14/18 23:59 07:59 15:59 Intake Total 1000 / 1000 1000 / 1000 Output Total 100 / 100 700 / 700 Balance 900 / 900 300 / 300 Intake: IV Fluids 1000 / 1000 1000 / 1000 Lactated Ringers 1,000 ML @ 250 1000 / 1000 1000 / 1000 mls/hr IVC .Q4H [facility] Rx#: [id number] Output: Urine 100 / 100 700 / 700 Other: Weight 95.2 kg Patient Weight 10/14/18 23:59 Weight 95.2 kg - Exam FHR: auscultation normal Abdomen: Present: soft, gravid. Absent: tenderness - Labs Labs: Abnormal lab results Hgb 11.0 g/dL (11.5-15.4) L 10/13/18 15:22 Hct 34.0 % (35.3-44.9) L 10/13/18 15:22
--- NOTE | 2018-10-14 08:39 | Urology - Consult Note ---
Date of Encounter: 10/14/18 Time of Encounter: 08:36 - Assessment and Plan (1) Hydronephrosis, right Current Visit: Yes Status: Acute Assessment and plan: Patient with moderate right hydronephrosis. Likely commendation of - related as well as right distal ureteral stone obstruction. (2) Flank pain Current Visit: No Status: Acute Assessment and plan: This is likely secondary to distal right ureteral stone. Ultrasound not definitive test for visualizing stone but this ultrasound shows likely distal stone. (3) Ureteral stone with hydronephrosis Current Visit: No Status: Resolved Assessment and plan: I discussed with the patient treatment options regarding her right distal ureteral stone. She is currently 21 weeks . These included observation versus stone extraction versus more advanced imaging. At this point, going to continue with pain control as well as IV fluids and increase by mouth intake. I have advised the patient to try to ambulate as much as possible. We will continue to follow along closely. Urology CN:HPI Consult date: 10/14/18 Requesting physician: Lenka Ohara History of present illness: Promise is a 28-year-old female well-known to urology service for recurrent kidney stones. Patient now is 21 weeks . She presented emergency Department yesterday secondary to severe right-sided flank pain as well as some pressure with voiding. She underwent a renal ultrasound which showed a likely punctate stone at the right UVJ. Patient also with some moderate right hydronephrosis. Patient's pain is currently well controlled. She has been tolerating liquids and food without issues. No fevers. Labs stable. Past Med Surg Social Fam HX - Past Medical History Medical history: GERD, kidney stones, migraine, other Additional medical history: REPEATED ED VISITS Psychiatric history: anxiety - Past Surgical History Surgical History: cholecystectomy, other Additional surgical history: Lipostripsey. stone removal - Social History Smoking Status: Former smoker Smokeless Tobacco Status: No Alcohol use: none Drug use: none - Family History Mother Adopted: [place]: [place] Age: 45 Family Member Ethnicity: Non- Living Status: Still Living Hx Family Cardiac Disorders: No Hx Family Respiratory Disorders: No Hx Family Cancer: No Hx Family GI Disorders: No Hx Family Genitourinary Disorders: No Hx Family Endocrine Disorder: No Hx Family Neuromuscular Disorders: No Hx Family Neurologic Disorders: No Hx Family HEENT Disorders: No Hx Family Autoimmune Disorders: No Hx Family Medical Disorders: Yes (migraines) Medications and Allergies Ondansetron ODT [Zofran ODT] 4 mg SL Q6HR PRN #8 tab.rapdis 10/10/18 [Rx] OxyCODONE/APAP 5/325 [Percocet 5/325 MG] 1 each PO Q6HR PRN 4 Days #14 tablet 10/10/18 [Rx] Pnv95/Ferrous Fumarate/FA [ Vitamin Tablet] 1 each PO DAILY 10/10/18 [History] Allergy/AdvReac Type Severity Reaction Status Date / Time hydrocodone [From Vicodin] AdvReac Vomiting Verified 10/13/18 15:10 Review of Systems - Constitutional no chills, no fever(s) - EENT Nose, mouth and throat: no dizziness - Cardiovascular no chest pain - Respiratory no cough - Gastrointestinal abdominal pain, no nausea, no vomiting - Genitourinary Genitourinary: as per HPI - Musculoskeletal back pain - Integumentary no erythema, no swelling - Neurological no sensory deficit - Psychiatric no anxiety, no confusion - Hematologic/Lymphatic no lymphadenopathy Exam Initial Vital Signs Temp Pulse Resp BP Pulse Ox 97.8 F 72 16 104/69 100 10/13/18 20:00 10/13/18 20:00 10/13/18 20:00 10/13/18 20:00 10/13/18 20:00 General/Neuological: alert and oriented x 3 Eyes: normal pupils, non-icteric Neck: no lymphadenopathy noted, supple to touch Cardiovascular: RRR, no murmurs Respiratory: normal respiratory effort, clear bilaterally ABD: soft, nontender, no masses palpated, gravid abdomen Back: no pain on percussion bilaterally Skin: no rashes noted Musculoskeletal: normal gait, FROMx4 Urology Results - Labs 10/13/18 15:22 Abnormal lab results Hgb 11.0 g/dL (11.5-15.4) L 10/13/18 15:22 Hct 34.0 % (35.3-44.9) L 10/13/18 15:22 All other labs normal. - Imaging US - kidney/bladder: image reviewed (Image consistent with distal right ureteral stone of approximately 2 mm in size.) Consult Discharge Plan - Plan Referrals: NONE,PCP [Primary Care Provider] -
[2018-10-14 09:45] LABS: BUN/Creatinine Ratio 9 (6-26); Blood Urea Nitrogen 5 mg/dL (6-20); Calcium 8.5 mg/dL (8.6-10.3); Carbon Dioxide 24 mEq/L (23-29); Chloride 105 mEq/L (98-107); Glucose 111 mg/dL (70-105); Osmolality,Calculated 280 (280-300); Potassium 3.9 mEq/L (3.5-5.1); Sodium 136 mEq/L (136-145); eGFR For African Americans > 60 (> 60); eGFR For Non-African Americans > 60 (> 60)
[2018-10-15] MEDS: *HR* Meperidine 50 MG/ML SYRINGE IVP PRN ×4 (00:28→14:12)
[2018-10-15] MEDS: *HR* Promethazine 25 MG/ML VIAL IVP PRN ×5 (00:52→19:27)
[2018-10-15] MEDS: Ringers Solution, Lactated 1,000 ML IVC SCH ×3 (01:38→09:39)
--- NOTE | 2018-10-15 08:42 | Urology Progress Note ---
<Lyric Garcia N - Last Filed: 10/15/18 08:40> Date of Encounter: 10/15/18 Time of Encounter: 07:40 - Assessment and Plan (1) 21 weeks gestation of Current Visit: Yes Status: Acute (2) Ureteral stone with hydronephrosis Current Visit: No Status: Resolved Assessment and plan: Patient is a 28-year-old female who presents at 21 weeks estimated gestational age with a history of a right distal ureteral stone and hydronephrosis. Vital signs are stable and afebrile. White blood cell count and renal function are both reassuring. Urine culture is negative. Patient is well-controlled at present, and no urologic surgical intervention is anticipated at this time. Progress Note Subjective: no new complaints Narrative: Patient seen and examined sitting upright in bed in no apparent distress. Patient reports she is tolerating normal diet without nausea or vomiting. Patient states she is voiding without difficulty. Patient states pain is well- controlled at present. Patient denies any fever, chills or gross hematuria. Objective Initial Vital Signs Temp Pulse Resp BP Pulse Ox 97.8 F 72 16 104/69 100 10/13/18 20:00 10/13/18 20:00 10/13/18 20:00 10/13/18 20:00 10/13/18 20:00 - General physical appearance Present: no distress, no pain - Respiratory Present: normal expansion, normal respiratory effort - Abdomen Present: soft, non tender. Absent: distended (gravid) - Integumentary Present: no rash, no abnormal pigmentation - Musculoskeletal Present: normal posture - Psychiatric Present: oriented to time, oriented to person, oriented to place, speech is normal, memory intact - Labs 10/13/18 15:22 10/14/18 09:15 Diabetes panel 10/14/18 Range/Units 09:15 Sodium 136 (136-145) mEq/L Potassium 3.9 (3.5-5.1) mEq/L Chloride 105 (98-107) mEq/L Carbon Dioxide 24 (23-29) mEq/L BUN 5 L (6-20) mg/dL Creatinine 0.57 L (0.60-1.20) mg/dL Glucose 111 H (70-105) mg/dL Calcium 8.5 L (8.6-10.3) mg/dL Calcium panel 10/14/18 Range/Units 09:15 Calcium 8.5 L (8.6-10.3) mg/dL Pituitary panel 10/14/18 Range/Units 09:15 Sodium 136 (136-145) mEq/L Potassium 3.9 (3.5-5.1) mEq/L Chloride 105 (98-107) mEq/L Carbon Dioxide 24 (23-29) mEq/L BUN 5 L (6-20) mg/dL Creatinine 0.57 L (0.60-1.20) mg/dL Glucose 111 H (70-105) mg/dL Calcium 8.5 L (8.6-10.3) mg/dL Adrenal panel 10/14/18 Range/Units 09:15 Sodium 136 (136-145) mEq/L Potassium 3.9 (3.5-5.1) mEq/L Chloride 105 (98-107) mEq/L Carbon Dioxide 24 (23-29) mEq/L BUN 5 L (6-20) mg/dL Creatinine 0.57 L (0.60-1.20) mg/dL Glucose 111 H (70-105) mg/dL Calcium 8.5 L (8.6-10.3) mg/dL - VTE Reasons for not Prescribing Prophylaxis: Treatment not Indicated - Low risk for VTE Consult Discharge Plan - Plan Referrals: NONE,PCP [Primary Care Provider] - <Elvis Dove - Last Filed: 10/15/18 16:23> Date of Encounter: 10/15/18 - Assessment and Plan (1) Hydronephrosis, right Current Visit: Yes Status: Acute (2) Flank pain Current Visit: No Status: Acute (3) Ureteral stone with hydronephrosis Current Visit: No Status: Resolved Progress Note Narrative: Patient was seen and examined independently. I agree with the plan as written by Lyric Garcia. At this point patient's pain has improved. Recommend to start limiting narcotic medication. If patients pain returns may need to redo renal ultrasound to evaluate kidney as well as bladder. Will reevaluate tomorrow. Objective Initial Vital Signs Temp Pulse Resp BP Pulse Ox 97.8 F 72 16 104/69 100 10/13/18 20:00 10/13/18 20:00 10/13/18 20:00 10/13/18 20:00 10/13/18 20:00 - Labs 10/13/18 15:22 07/10/19 09:15
--- NOTE | 2018-10-15 10:00 | OB/GYN Progress Note ---
Date of Encounter: 10/15/18 Time of Encounter: 09:58 - Assessment and Plan (1) 22 weeks gestation of Current Visit: Yes Status: Acute No related issues at this time. FHT to be completed q shift per doppler. Once discharged, she is to return to [facility] practice for routine visits. (2) Ureteral stone with hydronephrosis Current Visit: No Status: Resolved Plan of care to be determined in consultation with Urology service. Subjective - Subjective Principal diagnosis: Kidney stone, 22w0d Interval history: Patient is doing well this morning. She reports her pain is well controlled with the Demerol & Phenergan. She did have some vomiting this morning, but is otherw ise tolerating her diet. Patient states Urology has not been in to see her yet today so we will wait until she is evaluated by the urology service to make a decision on discharge plans. Antepartum ROS: movement normal, other (kidney stone), no loss of fluid, no vaginal bleeding, no contractions Objective - Vital Signs Vital Signs: Vital Signs Temp Pulse Pulse Resp BP Pulse Ox 10/15/18 09:00 98 F 91 12 103/69 98 10/14/18 20:30 98.3 F 84 16 100/67 97 10/14/18 12:00 97.7 F 90 90 14 95/66 98 Intake and Output 10/14/18 10/15/18 10/15/18 23:59 07:59 15:59 Intake Total 1000 / 4840 1000 / 2000 1000 / 2000 Output Total 2700 / 5200 2100 / 2100 Balance -1700 / -360 -1100 / -100 1000 / -100 Intake: IV Fluids 1000 / 4000 1000 / 2000 1000 / 2000 Lactated Ringers 1,000 ML @ 250 1000 / 4000 1000 / 2000 1000 / 2000 mls/hr IVC .Q4H [facility] Rx#: [id number] Output: Urine 2700 / 5200 2100 / 2100 Other: Meal Dinner Percent of Meal Consumed 30% Weight 97 kg Patient Weight 10/15/18 23:59 Weight 97 kg - Exam FHR: auscultation normal Auscultation: bilateral: normal Abdomen: Present: normal appearance, soft, gravid Uterus: Present: normal - Labs Labs: Abnormal lab results Hgb 11.0 g/dL (11.5-15.4) L 10/13/18 15:22 Hct 34.0 % (35.3-44.9) L 10/13/18 15:22 BUN 5 mg/dL (6-20) L 10/14/18 09:15 0.57 mg/dL (0.60-1.20) L 10/14/18 09:15 Glucose 111 mg/dL (70-105) H 10/14/18 09:15 Calcium 8.5 mg/dL (8.6-10.3) L 10/14/18 09:15
[2018-10-15] MEDS ORDERED: Ringers Solution, Lactated 1,000 ML IVC SCH (10:15)
[2018-10-15] MEDS ORDERED: *HR* Meperidine 50 MG/ML SYRINGE IVP PRN (19:04)
[2018-10-15] MEDS: *HR* OxyCODONE Immed Rel 5 MG TABLET PO PRN (23:32)
--- NOTE | 2018-10-16 08:27 | Urology Progress Note ---
<Lyric Garcia - Last Filed: 10/16/18 08:27> Date of Encounter: 10/16/18 Time of Encounter: 07:50 - Assessment and Plan (1) 21 weeks gestation of Current Visit: Yes Status: Acute (2) Ureteral stone with hydronephrosis Current Visit: Yes Status: Resolved Assessment and plan: Patient is a 28-year-old female who presents at 21 weeks estimated gestational age with a right distal ureteral stone and hydronephrosis. Patient admits to co ntinued flank pain, and white blood cell count and renal function are both reassuring. Urine culture is negative. We will plan to repeat a renal ultrasound today to reevaluate for hydronephrosis and stone visibility. Progress Note Subjective: still having pain Narrative: Patient seen and examined sitting upright in bed in no apparent distress. Patient is tolerating normal diet without nausea or vomiting. Patient is voiding well without difficulty. Patient admits to continued flank pain. Objective Initial Vital Signs Temp Pulse Resp BP Pulse Ox 97.8 F 72 16 104/69 100 10/13/18 20:00 10/13/18 20:00 10/13/18 20:00 10/13/18 20:00 10/13/18 20:00 - General physical appearance Present: no distress, moderate pain - Respiratory Present: normal expansion, normal respiratory effort - Abdomen Present: soft, non tender. Absent: distended (gravid) - Integumentary Present: no rash, no abnormal pigmentation - Musculoskeletal Present: normal posture - Psychiatric Present: oriented to time, oriented to person, oriented to place, speech is normal, memory intact - Labs 10/13/18 15:22 10/14/18 09:15 - VTE Reasons for not Prescribing Prophylaxis: Treatment not Indicated - Low risk for VTE Consult Discharge Plan - Plan Referrals: NONE,PCP [Primary Care Provider] - <Elvis Dove - Last Filed: 10/16/18 18:22> Date of Encounter: 10/16/18 - Assessment and Plan (1) Hydronephrosis, right Current Visit: Yes Status: Acute (2) Flank pain Current Visit: No Status: Acute (3) Ureteral stone with hydronephrosis Current Visit: Yes Status: Resolved Progress Note Narrative: Patient was seen and examined in the plate. Agree with the plan as written by Lyric Garcia. Patient has had renal ultrasound which showed stability on her hydronephrosis on her right side but on personal review this appears slightly improved. No longer visualized was a possible distal right ureteral stone. Patient has had very good pain control. We will reevaluate tomorrow morning but my expectation is that the patient will be able to be discharged home tomorrow. Objective Initial Vital Signs Temp Pulse Resp BP Pulse Ox 97.8 F 72 16 104/69 100 10/13/18 20:00 10/13/18 20:00 10/13/18 20:00 10/13/18 20:00 10/13/18 20:00 - Labs 10/13/18 15:22 10/14/18 09:15
[2018-10-16] MEDS: *HR* OxyCODONE Immed Rel 5 MG TABLET PO PRN ×2 (09:28→15:57)
[2018-10-16] MEDS: Ondansetron ODT 4 MG TAB.RAPDIS SL PRN ×2 (09:29→15:58)
[2018-10-16] MEDS: Famotidine 20 MG TABLET PO SCH ×2 (11:18→20:43)
--- NOTE | 2018-10-16 20:19 | OB/GYN Progress Note ---
Date of Encounter: 10/16/18 Time of Encounter: 15:00 - Assessment and Plan (1) 22 weeks gestation of Current Visit: Yes Status: Acute FHT q shift (2) Ureteral stone with hydronephrosis Current Visit: Yes Status: Resolved Defer to recommendation of urology - likely discharge tomorrow. Subjective - Subjective Principal diagnosis: kidney stones in Interval history: Ms. Martinez reports continued pain today and states she is not getting adequate control with PO pain meds. She endorses good fm and denies lof, vb, ctx. Antepartum ROS: movement normal, no new complaints, no loss of fluid, no vaginal bleeding, no contractions Objective - Vital Signs Vital Signs: Vital Signs Temp Pulse Resp BP Pulse Ox 10/16/18 08:30 98 F 80 16 124/78 99 Intake and Output 10/16/18 10/16/18 10/16/18 07:59 15:59 23:59 Intake Total 200 / 1650 950 / 1650 500 / 1650 Output Total 1600 / 3000 700 / 3000 700 / 3000 Balance -1400 / -1350 250 / -1350 -200 / -1350 Intake: Oral 200 / 1150 950 / 1150 Free Water 500 / 500 Output: Urine 1600 / 3000 700 / 3000 700 / 3000 Other: Meal Lunch Dinner Percent of Meal Consumed 85% 100% Weight 94.166 kg Patient Weight 10/16/18 23:59 Weight 94.166 kg - Exam FHR: auscultation normal Auscultation: bilateral: normal Abdomen: Present: normal appearance, soft, gravid Uterus: Present: normal, firm - Labs Labs: Abnormal lab results Hgb 11.0 g/dL (11.5-15.4) L 10/13/18 15:22 Hct 34.0 % (35.3-44.9) L 10/13/18 15:22 BUN 5 mg/dL (6-20) L 10/14/18 09:15 Creatinine 0.57 mg/dL (0.60-1.20) L 10/14/18 09:15 Glucose 111 mg/dL (70-105) H 10/14/18 09:15 Calcium 8.5 mg/dL (8.6-10.3) L 10/14/18 09:15
[2018-10-16] MEDS: *HR* Meperidine 50 MG/ML SYRINGE IVP PRN (20:46)
[2018-10-16] MEDS: Nystatin Ointment 15 GM TUBE TP SCH (20:51)
[2018-10-16] MEDS: *HR* Promethazine 25 MG/ML VIAL IVP PRN (20:52)
[2018-10-17] MEDS: Ringers Solution, Lactated 1,000 ML IVC SCH ×2 (00:23→08:22)
[2018-10-17] MEDS: *HR* Promethazine 25 MG/ML VIAL IVP PRN ×3 (01:07→09:08)
[2018-10-17] MEDS: *HR* Meperidine 50 MG/ML SYRINGE IVP PRN ×2 (04:17→10:42)
[2018-10-17] MEDS: Famotidine 20 MG TABLET PO SCH (08:20)
[2018-10-17] MEDS: Nystatin Ointment 15 GM TUBE TP SCH (08:23)
[2018-10-17 08:31] VITALS: BP 99/52
--- NOTE | 2018-10-17 09:48 | Urology Progress Note ---
Date of Encounter: 10/17/18 Time of Encounter: 09:47 - Assessment and Plan (1) Hydronephrosis, right Current Visit: Yes Status: Acute Assessment and plan: Stable and ultrasound performed yesterday (2) Flank pain Current Visit: No Status: Acute Assessment and plan: Patient's pain is currently well controlled. In my opinion the patient is okay to discharge home. Patient will be scheduled for follow-up with me next Friday in [place]. Please call with any concerns or questions. (3) Ureteral stone with hydronephrosis Current Visit: Yes Status: Resolved Progress Note Narrative: Patient seen today. Patient denies any significant right-sided flank pain. She has started to develop some left upper back discomfort. No radiation. Objective Initial Vital Signs Temp Pulse Resp BP Pulse Ox 97.8 F 72 16 104/69 100 10/13/18 20:00 10/13/18 20:00 10/13/18 20:00 10/13/18 20:00 10/13/18 20:00 - General physical appearance Present: well developed, well nourished - Abdomen Present: soft. Absent: tender - Musculoskeletal Present: other (Patient with some pain on palpation of left paraspinal muscles) - Labs 10/13/18 15:22 10/14/18 09:15 - VTE Reasons for not Prescribing Prophylaxis: Treatment not Indicated - Low risk for VTE Consult Discharge Plan - Plan Referrals: NONE,PCP [Primary Care Provider] -
--- NOTE | 2018-10-17 10:21 | Discharge Summary ---
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 Dove evaluated patient today, recommends discharge home with Tylenol for pain prn Patient to follow up with Urology on Friday Qualifiers: Hydronephrosis type: unspecified Qualified Code(s): N13.30 - Unspecified hydronephrosis - Discharge Medications Prescriptions: New Nystatin Ointment [Mycostatin Ointment] 1 appl TP QID tube Promethazine [Phenergan] 12.5 mg PO Q6HR #30 tablet Acetaminophen [Tylenol] 1,000 mg PO Q6HR #60 tablet Continued Pnv95/Ferrous Fumarate/FA [ Vitamin Tablet] 1 each PO DAILY Discontinued OxyCODONE/APAP 5/325 [Percocet 5/325 MG] 1 each PO Q6HR PRN 4 Days #14 tablet PRN Reason: Pain Ondansetron ODT [Zofran ODT] 4 mg SL Q6HR PRN #8 tab.rapdis PRN Reason: Nausea Home Medications: Pnv95/Ferrous Fumarate/FA [ Vitamin Tablet] 1 each PO DAILY 10/10/18 [History] Acetaminophen [Tylenol] 1,000 mg PO Q6HR #60 tablet 10/17/18 [Rx] Nystatin Ointment [Mycostatin Ointment] 1 appl TP QID tube 10/17/18 [Rx] Promethazine [Phenergan] 12.5 mg PO Q6HR #30 tablet 10/17/18 [Rx] Allergies/Adverse Reactions: Allergy/AdvReac Type Severity Reaction Status Date / Time hydrocodone [From Vicodin] AdvReac Vomiting Verified 10/13/18 15:10 Data Procedures and tests throughout hospitalization: Laboratory Tests 10/13/18 10/13/18 10/14/18 15:22 15:22 09:15 WBC 9.7 RBC 3.86 Hgb 11.0 L Hct 34.0 L MCV 88.1 MCH 28.5 MCHC 32.4 RDW 13.7 Plt Count 330 MPV 11.0 Immature Gran % 0.4 Seg Neutrophils % 73.2 Lymphocytes % 19.9 Monocytes % 4.1 Eosinophils % 2.1 Basophils % 0.3 Neutrophils # 7.1 Lymphocytes # 1.9 Monocytes # 0.4 Eosinophils # 0.2 Basophils # 0.0 Sodium 136 Potassium 3.9 Chloride 105 Carbon Dioxide 24 BUN 5 L Creatinine 0.57 L Est GFR ( Amer) > 60 Est GFR (Non-Af Amer) > 60 BUN/Creatinine Ratio 9 Glucose 111 H Calculated Osmolality 280 Calcium 8.5 L Urine Opiates Screen Negative Ur Buprenorphine Scrn Negative Ur Barbiturates Screen Negative Ur Phencyclidine Scrn Negative Ur Amphetamines Screen Negative U Benzodiazepines Scrn Negative Urine Cocaine Screen Negative U Marijuana (THC) Screen Negative Ur Drug Screen Interp See Below - Impressions ITS Impressions Retroperitoneum Ultrasound 10/13/18 16:30 IMPRESSION: Moderate hydronephrosis of the right kidney. Echogenic focus questioned in the region of the right UVJ which could represent a stone. D/ : / 10/13/2018 17:28:38 David Garcia MD / [facility] Interpreting Provider: David Garcia MD Retroperitoneum Ultrasound 10/16/18 11:00 IMPRESSION: Again identified is moderate hydronephrosis of the right kidney, similar to the previous examination. There is mild left-sided hydronephrosis. D/ / Lei Paul MD / Lei Paul MD Interpreting Provider: Lei Paul MD Date of admission: 10/16/18 15:19 Primary care physician: PCP NONE Consults: 10/13/18 18:37 Consult to Urology [CONS] Routine Consulting Provider: Urology Lily Reason for Consult: 21 weeks , kidney stones Time Notified: 18:38 Call Completed: Yes Discharging clinician: Daysi Moore Anticipated date of discharge: 10/17/18 - Patient Status Disposition: Home, Self-Care Condition: Good Functional capacity at discharge: independent ambulation - Discharge Instructions Follow Up With: NONE,PCP [Primary Care Provider] - Elizabeth Espinal CNM [Non-Partnered Physician] - - Diet and Activity Activity: increase activity as tolerated 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 Martinez is a 28 year old female at 22w2d who arrived with complaint of severe pain she feels is related to a kidney stone. She has an extensive history of kidney stones in the past which have required surgical removal and lithotripsy. She reports her first kidney stone was at age 15. She does report positive movement, denies and fluid leakage and bleeding. Time Attestation: Total time spent providing and/or coordinating discharge services: Time Spent: Less than 30 minutes Exam - Constitutional Vitals: Temp Pulse Resp BP Pulse Ox 98.0 F 85 16 99/52 97 10/17/18 08:30 10/17/18 08:30 10/17/18 08:30 10/17/18 08:30 10/17/18 04:20 General appearance IM: A&O X 3, pleasant, answers questions appropriately - Respiratory Respiratory exam: Present: CTAB - Cardiovascular Cardiovascular exam IM: Present: RRR, +S1, +S2 - GI/Abdominal GI/Abdominal exam IM: normal bowel sounds, soft - Extremities Exam Extremities exam IM: Present: full ROM, normal capillary refill, normal inspection - Neurological Exam Neurological exam: alert, oriented X3, reflexes normal - VTE Reasons for not Prescribing Prophylaxis: Treatment not Indicated - Low risk for VTE
== END 2018-10-17 12:11 | disposition home or self-care (01) | DRG 566 ==
LOC: 1NENULAB → 1NENUOBS 20:37
PROVIDERS: ADMIT Registered Nurse; ATTEND Registered Nurse

== ENCOUNTER 2018-11-10 23:42 | Observation (INO) ==
--- NOTE | 2018-11-10 21:48 | OB/GYN History & Physical ---
Date of Encounter: 11/10/18 Time of Encounter: 21:46 Assessment and Plan (1) 24 weeks gestation of Current visit: Yes Status: Acute (2) Flank pain Current visit: No Status: Acute (3) with nephrolithiasis in second trimester Current visit: No Status: Acute Plan of care discussed with Dr.Nnoli LR at 125 Encourage by mouth hydration Fentanyl 50 g 1 for breakthrough pain OxyIR 10 mg when necessary pain Phenergan as needed her nausea Strain all urine Strict I&O heart tones every shift We will consult urology in a.m. History of Present Illness Chief complaint: right flank pain HPI: Ms. Martinez is a 28 year old female 24+3 weeks gestation. Presents to triage from [place] ED with complaints of severe right flank pain, nausea. Patient with significant history for kidney stones. Has had lithotripsy 3 followed by [facility], last admission for kidney stone 10/13-10/17 with stone in the right UVJ. Microscopic blood noted on UA appetite, no gross hematuria noted. Patient states pain feels similar to other kidney stones. Reports good movement, denies vaginal bleeding or leaking of fluid. Denies dysuria, urgency or frequency. Past Med Surg Social Fam HX - Past Medical History Medical history: GERD, kidney stones, migraine, other Additional medical history: REPEATED ED VISITS Psychiatric history: anxiety - Past Surgical History Surgical History: cholecystectomy Additional surgical history: Lipostripsey. stone removal - Social History Smoking Status: Former smoker Smokeless Tobacco Status: No Alcohol use: none Drug use: none - Family History Mother Adopted: No Family Member Ethnicity: Non- Living Status: Still Living Hx Family Cardiac Disorders: No Hx Family Respiratory Disorders: No Hx Family Cancer: No Hx Family GI Disorders: No Hx Family Genitourinary Disorders: Yes (kidney stones) Hx Family Endocrine Disorder: No Hx Family Neuromuscular Disorders: No Hx Family Neurologic Disorders: No Hx Family HEENT Disorders: No Hx Family Autoimmune Disorders: No Obstetrical History - Pregnancies : 3 Para: 2 Term: 0 : 0 Ab's: 0 Livin Medications and Allergies Acetaminophen [Tylenol] 1,000 mg PO Q6HR #60 tablet 10/17/18 [Rx] Promethazine [Phenergan] 12.5 mg PO Q6HR #30 tablet 10/17/18 [Rx] Ondansetron ODT [Zofran ODT] 4 mg SL Q6HR 11/10/18 [History] Caplet 1 tab PO DAILY 11/10/18 [History] Allergy/AdvReac Type Severity Reaction Status Date / Time hydrocodone [From Vicodin] AdvReac Vomiting Verified 10/13/18 15:10 Exam - Constitutional Constitutional: well developed, well nourished - Lungs Respiratory exam: CTAB - Cardiovascular Cardiovascular exam: RRR - Abdomen Abdomen: Present: gravid, non tender - Extremities Extremities exam: normal capillary refill, normal inspection - Comments Comments: + right CVA tenderness. Results All other labs normal.
[~2018-11-10 23:42] MED LIST: *HR* FentaNYL (PF) 100 MCG/2 ML VIAL IVP ONE; *HR* OxyCODONE Immed Rel 5 MG TABLET PO PRN; *HR* Promethazine 25 MG/ML VIAL IVP ONE; Ondansetron ODT 4 MG TAB.RAPDIS SL PRN
[2018-11-11] MEDS: *HR* OxyCODONE Immed Rel 5 MG TABLET PO PRN ×4 (04:25→19:52)
[2018-11-11] MEDS: *HR* Promethazine 25 MG/ML VIAL IVP PRN ×3 (04:58→18:58)
[2018-11-11 08:06] LABS: Basophils % 0.2 %; Eosinophils # 0.2 K/mcL (0.0-0.6); Hematocrit 27.5 % (35.3-44.9); Hemoglobin 8.6 g/dL (11.5-15.4); Immature Granulocytes % 0.4 % (0-4); Lymphocytes # 3.1 K/mcL (0.6-4.6); Lymphocytes % 35.7 %; Mean Corpuscular HGB Conc 31.3 g/dL (31.6-35.5); Mean Corpuscular Hemoglobin 29.1 pg (28.0-33.3); Mean Corpuscular Volume 92.9 fL (83.0-100.0); Mean Platelet Volume 11.2 fL (9.4-12.4); Monocytes # 0.5 K/mcL (0.0-1.3); Monocytes % 5.4 %; Neutrophils # 4.8 K/mcL (1.6-8.9); Platelet Count 194 K/mcL (140-400); Red Blood Count 2.96 M/mcL (3.82-4.97); Red Cell Distribution Width 13.9 % (11.5-14.5); Segmented Neutrophils % 56.3 %; White Blood Count 8.6 K/mcL (4.3-11.1)
[2018-11-11] MEDS: Ringers Solution, Lactated 1,000 ML IVC SCH ×2 (08:13→15:49)
[2018-11-11 08:28] LABS: Alanine Aminotransferase < 3 Units/L (7-52); Albumin 3.1 g/dL (3.5-5.7); Albumin/Globulin Ratio 1.5 (1.1-2.2); Alkaline Phosphatase 63 Units/L (34-104); Aspartate Amino Transferase 6 Units/L (13-39); BUN/Creatinine Ratio 12 (6-26); Bilirubin,Total 0.2 mg/dL (0.3-1.0); Blood Urea Nitrogen 6 mg/dL (6-20); Calcium 8.1 mg/dL (8.6-10.3); Carbon Dioxide 22 mEq/L (23-29); Chloride 108 mEq/L (98-107); Globulin 2.1 g/dL (2.4-3.5); Glucose 101 mg/dL (70-105); Osmolality,Calculated 278 (280-300); Potassium 3.5 mEq/L (3.5-5.1); Sodium 135 mEq/L (136-145); Total Protein 5.2 g/dL (6.4-8.9); eGFR For African Americans > 60 (> 60); eGFR For Non-African Americans > 60 (> 60)
--- NOTE | 2018-11-11 13:48 | OB/GYN Progress Note ---
Date of Encounter: 11/11/18 Time of Encounter: 13:44 - Assessment and Plan (1) 24 weeks gestation of Current Visit: Yes Status: Acute Q shift FHT (2) Antepartum anemia complicating in second trimester Current Visit: Yes Status: Acute Begin twice daily iron and discharge home with RX. (3) with nephrolithiasis in second trimester Current Visit: No Status: Acute Continue IV fluid Continue straining urine Continue pain management strategies Consult urology. Subjective - Subjective Principal diagnosis: Kidney stone, 24w4d Interval history: Patient is doing well this afternoon. States the pain medication takes the edge off the pain. Denies any pain with urination. Urine is being strained with no stones passed at time of note. Patient is informed that urology will be consulted today for continued management. Antepartum ROS: movement normal, no new complaints, no vaginal bleeding, no contractions Objective - Vital Signs Vital Signs: Vital Signs Temp Pulse Resp BP 11/11/18 08:00 97.6 F 77 16 104/57 Intake and Output 11/10/18 11/11/18 11/11/18 23:59 07:59 15:59 Intake Total 820 / 820 Output Total 300 / 300 Balance -300 / 520 820 / 520 Intake: Oral 820 / 820 Output: Urine 300 / 300 Other: Meal Breakfast Percent of Meal Consumed 90% Weight 90.718 kg - Exam FHR: auscultation normal Auscultation: bilateral: normal Abdomen: Present: normal appearance, soft, gravid Uterus: Present: normal (2 above U) - Labs Labs: Abnormal lab results RBC 2.96 M/mcL (3.82-4.97) L 11/11/18 07:40 Hgb 8.6 g/dL (11.5-15.4) L D 11/11/18 07:40 Hct 27.5 % (35.3-44.9) L 11/11/18 07:40 MCHC 31.3 g/dL (31.6-35.5) L 11/11/18 07:40 Sodium 135 mEq/L (136-145) L 11/11/18 07:40 Chloride 108 mEq/L (98-107) H 11/11/18 07:40 Carbon Dioxide 22 mEq/L (23-29) L 11/11/18 07:40 Creatinine 0.49 mg/dL (0.60-1.20) L 11/11/18 07:40 Calculated Osmolality 278 (280-300) L 11/11/18 07:40 Calcium 8.1 mg/dL (8.6-10.3) L 11/11/18 07:40 Total Bilirubin 0.2 mg/dL (0.3-1.0) L 11/11/18 07:40 AST 6 Units/L (13-39) L 11/11/18 07:40 ALT < 3 Units/L (7-52) L 11/11/18 07:40 Serum Total Protein 5.2 g/dL (6.4-8.9) L 11/11/18 07:40 Albumin 3.1 g/dL (3.5-5.7) L 11/11/18 07:40 Globulin 2.1 g/dL (2.4-3.5) L 11/11/18 07:40
--- NOTE | 2018-11-11 14:55 | Urology - Consult Note ---
<Lyric Garcia N - Last Filed: 11/11/18 14:52> Date of Encounter: 11/11/18 Time of Encounter: 14:20 - Assessment and Plan (1) 24 weeks gestation of Current Visit: Yes Status: Acute Assessment and plan: Patient is a 28-year-old at 24 weeks EGA who presents with right flank pain and moderate right hydronephrosis, likely secondary to ureteral stone. She reports her has been uncomplicated despite nephrolithiasis. Patient is admitted to anteverted unit and undergoing daily Doppler evaluation and monitoring. (2) Hydronephrosis, right Current Visit: Yes Status: Acute Assessment and plan: Patient is a 28-year-old female who presents with moderate right hydronephrosis. I reviewed renal ultrasound findings with patient at bedside. I discussed the restriction of urologic intervention at our facility based off patient's gestation. The options for ureterolithiasis in typically include nephrostomy tube placement or option to transfer to a facility that can provide urologic care and also have a NICU. Currently, patient's pain is controlled, vital signs are stable and afebrile, and white blood cell count and renal function are both reassuring. Urine culture from 10/10/2018 is negative, and current urine culture has been collected and is pending. Dr. Dove will be in to discuss options for management. Urology CN:HPI Consult date: 11/11/18 Reason for consult Urology: Hydronephrosis (right ureteral stone) Requesting physician: Lenka Ohara History of present illness: Patient is a 28-year-old female who presents at 24 weeks EGA with a history of moderate right hydronephrosis likely secondary to a ureteral stone. Patient has a long-standing history of nephrolithiasis, and she has undergone both left ureteroscopy in May 2016 and right ESWL in November [address] Eldridge. Patient was previously admitted on 10/13/2018- 10/17/2018 with a similar presentation. Urine culture from October 2018 is negative. Patient has undergone three renal ultrasounds suggestive of right obstructive uropathy. Patient states right flank pain acutely worsened one day ago and was accompanied with nausea and vomiting. Patient also reports pink tinged urine yesterday afternoon. She reports good movement and denies any loss of fluid, c ontractions, vaginal bleeding, dysuria, fever, chills or incontinence. Patient admits to a positive family history of renal stones through her mother. Past Med Surg Social Fam HX - Past Medical History Medical history: GERD, kidney stones, migraine, other Additional medical history: REPEATED ED VISITS Psychiatric history: anxiety - Past Surgical History Surgical History: cholecystectomy Additional surgical history: Lipostripsey. stone removal - Social History Smoking Status: Former smoker Smokeless Tobacco Status: No Alcohol use: none Drug use: none - Family History Mother Adopted: No Family Member Ethnicity: Non- Living Status: Still Living Hx Family Cardiac Disorders: No Hx Family Respiratory Disorders: No Hx Family Cancer: No Hx Family GI Disorders: No Hx Family Genitourinary Disorders: Yes (kidney stones) Hx Family Endocrine Disorder: No Hx Family Neuromuscular Disorders: No Hx Family Neurologic Disorders: No Hx Family HEENT Disorders: No Hx Family Autoimmune Disorders: No Medications and Allergies Acetaminophen [Tylenol] 1,000 mg PO Q6HR #60 tablet 10/17/18 [Rx] Promethazine [Phenergan] 12.5 mg PO Q6HR #30 tablet 10/17/18 [Rx] Ondansetron ODT [Zofran ODT] 4 mg SL Q6HR 11/10/18 [History] Caplet 1 tab PO DAILY 11/10/18 [History] Allergy/AdvReac Type Severity Reaction Status Date / Time hydrocodone [From Vicodin] AdvReac Vomiting Verified 10/13/18 15:10 Review of Systems - Constitutional no chills, no fatigue, no fever(s) - EENT Nose, mouth and throat: no dizziness, no headache(s) - Cardiovascular no chest pain, no diaphoresis, no dyspnea - Respiratory no cough, no dyspnea - Gastrointestinal nausea, vomiting, no abdominal pain - Genitourinary Genitourinary: flank pain, hematuria, no change in urinary stream, no difficulty urinating, no dysuria, no urinary frequency, no urinary hesitancy, no urinary incontinence, no urinary urgency Menstruation: other (24 weeks EGA) - Musculoskeletal back pain, no muscle weakness - Integumentary no erythema, no rash - Neurological no confusion, no syncope - Psychiatric no anxiety, no confusion - Hematologic/Lymphatic no easy bleeding, no easy bruising - Allergic/Immunologic no throat swelling, no wheezing Exam Initial Vital Signs Temp Pulse Resp BP 97.6 F 77 16 104/57 11/11/18 08:00 11/11/18 08:00 11/11/18 08:00 11/11/18 08:00 - General physical appearance Present: no distress, no pain - Eyes Present: PERRL, normal ocular movement - ENT Present: no hearing loss, no congestion - Neck Present: no masses, trachea midline, no lymphadenopathy - Respiratory Present: normal respiratory effort - Cardiovascular Cardiovascular exam IM: RRR - Abdomen Abdomen: Present: soft (gravid), non tender, distended - Genitourinary Present: other (no cvat) - Integumentary Present: no rash, no abnormal pigmentation - Neurologic Present: normal coordination - Musculoskeletal Present: other (normal posture ) Urology Results - Labs 11/11/18 07:40 11/11/18 07:40 Abnormal lab results RBC 2.96 M/mcL (3.82-4.97) L 11/11/18 07:40 Hgb 8.6 g/dL (11.5-15.4) L D 11/11/18 07:40 Hct 27.5 % (35.3-44.9) L 11/11/18 07:40 MCHC 31.3 g/dL (31.6-35.5) L 11/11/18 07:40 Sodium 135 mEq/L (136-145) L 11/11/18 07:40 Chloride 108 mEq/L (98-107) H 11/11/18 07:40 Carbon Dioxide 22 mEq/L (23-29) L 11/11/18 07:40 Creatinine 0.49 mg/dL (0.60-1.20) L 11/11/18 07:40 Calculated Osmolality 278 (280-300) L 11/11/18 07:40 Calcium 8.1 mg/dL (8.6-10.3) L 11/11/18 07:40 Total Bilirubin 0.2 mg/dL (0.3-1.0) L 11/11/18 07:40 AST 6 Units/L (13-39) L 11/11/18 07:40 ALT < 3 Units/L (7-52) L 11/11/18 07:40 Serum Total Protein 5.2 g/dL (6.4-8.9) L 11/11/18 07:40 Albumin 3.1 g/dL (3.5-5.7) L 11/11/18 07:40 Globulin 2.1 g/dL (2.4-3.5) L 11/11/18 07:40 Diabetes panel 11/11/18 Range/Units 07:40 Sodium 135 L (136-145) mEq/L Potassium 3.5 (3.5-5.1) mEq/L Chloride 108 H (98-107) mEq/L Carbon Dioxide 22 L (23-29) mEq/L BUN 6 (6-20) mg/dL Creatinine 0.49 L (0.60-1.20) mg/dL Glucose 101 (70-105) mg/dL Calcium 8.1 L (8.6-10.3) mg/dL AST 6 L (13-39) Units/L ALT < 3 L (7-52) Units/L Alkaline Phosphatase 63 (34-104) Units/L Albumin 3.1 L (3.5-5.7) g/dL Calcium panel 11/11/18 Range/Units 07:40 Calcium 8.1 L (8.6-10.3) mg/dL Albumin 3.1 L (3.5-5.7) g/dL Pituitary panel 11/11/18 Range/Units 07:40 Sodium 135 L (136-145) mEq/L Potassium 3.5 (3.5-5.1) mEq/L Chloride 108 H (98-107) mEq/L Carbon Dioxide 22 L (23-29) mEq/L BUN 6 (6-20) mg/dL Creatinine 0.49 L (0.60-1.20) mg/dL Glucose 101 (70-105) mg/dL Calcium 8.1 L (8.6-10.3) mg/dL Adrenal panel 11/11/18 Range/Units 07:40 Sodium 135 L (136-145) mEq/L Potassium 3.5 (3.5-5.1) mEq/L Chloride 108 H (98-107) mEq/L Carbon Dioxide 22 L (23-29) mEq/L BUN 6 (6-20) mg/dL Creatinine 0.49 L (0.60-1.20) mg/dL Glucose 101 (70-105) mg/dL Calcium 8.1 L (8.6-10.3) mg/dL Total Bilirubin 0.2 L (0.3-1.0) mg/dL AST 6 L (13-39) Units/L ALT < 3 L (7-52) Units/L Alkaline Phosphatase 63 (34-104) Units/L Albumin 3.1 L (3.5-5.7) g/dL All other labs normal. - Imaging US - kidney/bladder: report reviewed Consult Discharge Plan - Plan Referrals: NONE,PCP [Primary Care Provider] - <Elvis Dove - Last Filed: 11/11/18 16:39> Date of Encounter: 11/11/18 Urology CN:ERIN History of present illness: Patient was seen and examined independently. Agree with the plan as written by Lyric Garcia. Patient's pain is currently controlled. She does believe that her symptoms are consistent with her past history of passing kidney stones. Renal ultrasound was reviewed and does reveal some mild to moderate right hydronephrosis. No obvious right ureteral jet was noted which is consistent with possible right ureteral stone. I discussed with the patient that if she needed intervention she would have to be transferred to a tertiary care center. Will reevaluate patient tomorrow to determine how her symptoms are. Patient's labs at this time are reassuring. Exam Initial Vital Signs Temp Pulse Resp BP 97.6 F 77 16 104/57 11/11/18 08:00 11/11/18 08:00 11/11/18 08:00 11/11/18 08:00 Urology Results - Labs 11/11/18 07:40 11/11/18 07:40 Abnormal lab results RBC 2.96 M/mcL (3.82-4.97) L 11/11/18 07:40 Hgb 8.6 g/dL (11.5-15.4) L D 11/11/18 07:40 Hct 27.5 % (35.3-44.9) L 11/11/18 07:40 MCHC 31.3 g/dL (31.6-35.5) L 11/11/18 07:40 Sodium 135 mEq/L (136-145) L 11/11/18 07:40 Chloride 108 mEq/L (98-107) H 11/11/18 07:40 Carbon Dioxide 22 mEq/L (23-29) L 11/11/18 07:40 Creatinine 0.49 mg/dL (0.60-1.20) L 11/11/18 07:40 Calculated Osmolality 278 (280-300) L 11/11/18 07:40 Calcium 8.1 mg/dL (8.6-10.3) L 11/11/18 07:40 Total Bilirubin 0.2 mg/dL (0.3-1.0) L 11/11/18 07:40 AST 6 Units/L (13-39) L 11/11/18 07:40 ALT < 3 Units/L (7-52) L 11/11/18 07:40 Serum Total Protein 5.2 g/dL (6.4-8.9) L 11/11/18 07:40 Albumin 3.1 g/dL (3.5-5.7) L 11/11/18 07:40 Globulin 2.1 g/dL (2.4-3.5) L 11/11/18 07:40 Diabetes panel 11/11/18 Range/Units 07:40 Sodium 135 L (136-145) mEq/L Potassium 3.5 (3.5-5.1) mEq/L Chloride 108 H (98-107) mEq/L Carbon Dioxide 22 L (23-29) mEq/L BUN 6 (6-20) mg/dL Creatinine 0.49 L (0.60-1.20) mg/dL Glucose 101 (70-105) mg/dL Calcium 8.1 L (8.6-10.3) mg/dL AST 6 L (13-39) Units/L ALT < 3 L (7-52) Units/L Alkaline Phosphatase 63 (34-104) Units/L Albumin 3.1 L (3.5-5.7) g/dL Calcium panel 11/11/18 Range/Units 07:40 Calcium 8.1 L (8.6-10.3) mg/dL Albumin 3.1 L (3.5-5.7) g/dL Pituitary panel 11/11/18 Range/Units 07:40 Sodium 135 L (136-145) mEq/L Potassium 3.5 (3.5-5.1) mEq/L Chloride 108 H (98-107) mEq/L Carbon Dioxide 22 L (23-29) mEq/L BUN 6 (6-20) mg/dL Creatinine 0.49 L (0.60-1.20) mg/dL Glucose 101 (70-105) mg/dL Calcium 8.1 L (8.6-10.3) mg/dL Adrenal panel 11/11/18 Range/Units 07:40 Sodium 135 L (136-145) mEq/L Potassium 3.5 (3.5-5.1) mEq/L Chloride 108 H (98-107) mEq/L Carbon Dioxide 22 L (23-29) mEq/L BUN 6 (6-20) mg/dL Creatinine 0.49 L (0.60-1.20) mg/dL Glucose 101 (70-105) mg/dL Calcium 8.1 L (8.6-10.3) mg/dL Total Bilirubin 0.2 L (0.3-1.0) mg/dL AST 6 L (13-39) Units/L ALT < 3 L (7-52) Units/L Alkaline Phosphatase 63 (34-104) Units/L Albumin 3.1 L (3.5-5.7) g/dL All other labs normal.
[2018-11-11] MEDS ORDERED: Promethazine 12.5 MG in 0.9 % Sodium Chloride 50 ML IVPB ONE (20:56)
[2018-11-11] MEDS: SUMAtriptan succinate 50 MG TABLET PO PRN (22:49)
[2018-11-12] MEDS: *HR* OxyCODONE Immed Rel 5 MG TABLET PO PRN ×3 (00:15→10:14)
[2018-11-12] MEDS: Ringers Solution, Lactated 1,000 ML IVC SCH (00:39)
[2018-11-12] MEDS: *HR* Promethazine 25 MG/ML VIAL IVP PRN (04:57)
--- NOTE | 2018-11-12 08:31 | Urology Progress Note ---
<Lyric Garcia N - Last Filed: 11/12/18 08:28> Date of Encounter: 11/12/18 Time of Encounter: 07:45 - Assessment and Plan (1) 24 weeks gestation of Status: Acute (2) Hydronephrosis, right Status: Acute Assessment and plan: Patient is a 28-year-old female who presents at 24 weeks EGA with right hydronephrosis and a history of nephrolithiasis. Urine culture is negative. Patient has elected to continue with conservative management, and she does not wish to be transferred to a tertiary care facility for urologic intervention. Patient may be considered for discharge from a urologic standpoint. We may see patient to discuss further imaging and definitive stone management. Progress Note Subjective: no new complaints, feels better Narrative: Patient seen and examined lying in bed in no apparent distress. Patient reports flank pain is controlled at present. She is tolerating normal diet and voiding well without difficulty. Patient denies any fever, chills, dysuria or gross hematuria. Patient reports good movement and no vaginal bleeding. Objective Initial Vital Signs Temp Pulse Resp BP 97.6 F 77 16 104/57 11/11/18 08:00 11/11/18 08:00 11/11/18 08:00 11/11/18 08:00 - General physical appearance Present: well developed, no distress, no pain - Respiratory Present: normal expansion, normal respiratory effort - Abdomen Present: soft, non tender. Absent: distended - Integumentary Present: no rash, no abnormal pigmentation - Musculoskeletal Present: normal posture - Psychiatric Present: oriented to time, oriented to person, oriented to place, speech is normal, memory intact - Labs 11/11/18 07:40 11/11/18 07:40 Diabetes panel 11/11/18 Range/Units 07:40 Sodium 135 L (136-145) mEq/L Potassium 3.5 (3.5-5.1) mEq/L Chloride 108 H (98-107) mEq/L Carbon Dioxide 22 L (23-29) mEq/L BUN 6 (6-20) mg/dL Creatinine 0.49 L (0.60-1.20) mg/dL Glucose 101 (70-105) mg/dL Calcium 8.1 L (8.6-10.3) mg/dL AST 6 L (13-39) Units/L ALT < 3 L (7-52) Units/L Alkaline Phosphatase 63 (34-104) Units/L Albumin 3.1 L (3.5-5.7) g/dL Calcium panel 11/11/18 Range/Units 07:40 Calcium 8.1 L (8.6-10.3) mg/dL Albumin 3.1 L (3.5-5.7) g/dL Pituitary panel 11/11/18 Range/Units 07:40 Sodium 135 L (136-145) mEq/L Potassium 3.5 (3.5-5.1) mEq/L Chloride 108 H (98-107) mEq/L Carbon Dioxide 22 L (23-29) mEq/L BUN 6 (6-20) mg/dL Creatinine 0.49 L (0.60-1.20) mg/dL Glucose 101 (70-105) mg/dL Calcium 8.1 L (8.6-10.3) mg/dL Adrenal panel 11/11/18 Range/Units 07:40 Sodium 135 L (136-145) mEq/L Potassium 3.5 (3.5-5.1) mEq/L Chloride 108 H (98-107) mEq/L Carbon Dioxide 22 L (23-29) mEq/L BUN 6 (6-20) mg/dL Creatinine 0.49 L (0.60-1.20) mg/dL Glucose 101 (70-105) mg/dL Calcium 8.1 L (8.6-10.3) mg/dL Total Bilirubin 0.2 L (0.3-1.0) mg/dL AST 6 L (13-39) Units/L ALT < 3 L (7-52) Units/L Alkaline Phosphatase 63 (34-104) Units/L Albumin 3.1 L (3.5-5.7) g/dL Consult Discharge Plan - Plan Instructions: Kidney Stones (DC) Referrals: Elizabeth Espinal CNM [Non-Partnered Physician] - NONE,PCP [Primary Care Provider] - Prescriptions: Acetaminophen/Butalbital/Caffe [Fioricet] 1 each PO Q6HR #10 tablet Oxycodone HCl/Acetaminophen [Percocet 5-325 mg Tablet] 1 each PO Q6H PRN 4 Days #16 tablet PRN Reason: Pain <Esham,Elvis Brandon - Last Filed: 11/12/18 15:54> Date of Encounter: 11/12/18 Progress Note Narrative: Patient was seen and examined independently. I agree with the plan as written by Lyric Garcia. Patient okay to discharge home from urology standpoint. Patient stable at this time. Objective Initial Vital Signs Temp Pulse Resp BP 97.6 F 77 16 104/57 11/11/18 08:00 11/11/18 08:00 11/11/18 08:00 11/11/18 08:00 - Labs 11/11/18 07:40 11/11/18 07:40
[2018-11-12 09:06] VITALS: BP 100/59
--- NOTE | 2018-11-12 10:08 | Discharge Summary ---
Date of Encounter: 11/12/18 Time of Encounter: 10:07 - Discharge Diagnosis (1) 24 weeks gestation of Priority: Primary Status: Acute Comments: admitted for observation patient desires discharge home for conservative management (2) Hydronephrosis, right Priority: Secondary Status: Acute Comments: Patient declined transfer for possible surgical intervention Patient would like conservative management at this time - Discharge Medications Prescriptions: New Ferrous Sulfate 325 mg PO BIDWM tablet Calcium Carbonate [Tums] 1,000 mg PO Q4HR PRN tab.chew PRN Reason: Heartburn Continued Promethazine [Phenergan] 12.5 mg PO Q6HR #30 tablet Acetaminophen [Tylenol] 1,000 mg PO Q6HR #60 tablet Caplet 1 tab PO DAILY Discontinued Ondansetron ODT [Zofran ODT] 4 mg SL Q6HR Home Medications: Acetaminophen [Tylenol] 1,000 mg PO Q6HR #60 tablet 10/17/18 [Rx] Promethazine [Phenergan] 12.5 mg PO Q6HR #30 tablet 10/17/18 [Rx] Caplet 1 tab PO DAILY 11/10/18 [History] Calcium Carbonate [Tums] 1,000 mg PO Q4HR PRN tab.chew 11/12/18 [Rx] Ferrous Sulfate 325 mg PO BIDWM tablet 11/12/18 [Rx] Allergies/Adverse Reactions: Allergy/AdvReac Type Severity Reaction Status Date / Time hydrocodone [From Vicodin] AdvReac Vomiting Verified 10/13/18 15:10 Data Procedures and tests throughout hospitalization: Laboratory Tests 11/11/18 11/11/18 07:40 07:40 WBC 8.6 RBC 2.96 L Hgb 8.6 L D Hct 27.5 L MCV 92.9 MCH 29.1 MCHC 31.3 L RDW 13.9 Plt Count 194 MPV 11.2 Immature Gran % 0.4 Seg Neutrophils % 56.3 Lymphocytes % 35.7 Monocytes % 5.4 Eosinophils % 2.0 Basophils % 0.2 Neutrophils # 4.8 Lymphocytes # 3.1 Monocytes # 0.5 Eosinophils # 0.2 Basophils # 0.0 Sodium 135 L Potassium 3.5 Chloride 108 H Carbon Dioxide 22 L BUN 6 Creatinine 0.49 L Est GFR ( Amer) > 60 Est GFR (Non-Af Amer) > 60 BUN/Creatinine Ratio 12 Glucose 101 Calculated Osmolality 278 L Calcium 8.1 L Total Bilirubin 0.2 L AST 6 L ALT < 3 L Alkaline Phosphatase 63 Serum Total Protein 5.2 L Albumin 3.1 L Globulin 2.1 L Albumin/Globulin Ratio 1.5 - Impressions ITS Impressions Retroperitoneum Ultrasound 11/10/18 19:05 IMPRESSION: Stable moderate hydronephrosis of the right kidney with intrarenal stones measuring up 4 mm in size. Nonvisualization of the right ureteral jet suggesting possible obstructing right ureteral stone. Unremarkable appearance of the left kidney and bladder. D/ / 11/10/2018 21:16:36 Bakari Chan MD / naima Interpreting Provider: Bakari Chan MD Date of admission: 11/10/18 18:41 Primary care physician: PCP TRISHA Consults: 11/11/18 14:02 Consult to Urology [CONS] Stat Consulting Provider: Urology Lily Reason for Consult: 24weeks Possbile obstructing stone Time Notified: 14:02 Call Completed: Yes Discharging clinician: Daysi Moore Anticipated date of discharge: 11/12/18 - Patient Status Disposition: Home, Self-Care Condition: Good Functional capacity at discharge: independent ambulation - Discharge Instructions Follow Up With: NONE,PCP [Primary Care Provider] - Elizabeth Espinal CNM [Non-Partnered Physician] - - Diet and Activity Activity: increase activity as tolerated Diet: regular diet Hospital Course [employer] Hospital course: Patient is a 28-year-old female who presents at 24 weeks EGA with right hydronephrosis and a history of nephrolithiasis. Urine culture is negative. Patient has elected to continue with conservative management, and she does not wish to be transferred to a tertiary care facility for urologic intervention. atient seen and examined lying in bed in no apparent distress. Patient reports flank pain is controlled at present. She is tolerating normal diet and voiding well without difficulty. Patient denies any fever, chills, dysuria or gross hematuria. Patient reports good movement and no vaginal bleeding. Time Attestation: Total time spent providing and/or coordinating discharge services: Time Spent: Less than 30 minutes Exam - Constitutional Vitals: Temp Pulse Resp BP Pulse Ox 98.0 F 82 16 100/59 99 11/12/18 07:30 11/12/18 07:30 11/12/18 07:30 11/12/18 07:30 11/11/18 19:55 General appearance IM: A&O X 3, pleasant, answers questions appropriately - Respiratory Respiratory exam: Present: CTAB - Cardiovascular Cardiovascular exam IM: Present: RRR, +S1, +S2 - GI/Abdominal GI/Abdominal exam IM: normal bowel sounds - Extremities Exam Extremities exam IM: Present: full ROM, normal inspection, pedal edema - Neurological Exam Neurological exam: alert, oriented X3, reflexes normal
[2018-11-12] MEDS: SUMAtriptan succinate 50 MG TABLET PO PRN (10:15)
== END 2018-11-12 12:00 | disposition home or self-care (01) ==
LOC: 1NENULAB → 1NENUOBS 23:42
PROVIDERS: ADMIT Advanced Practice Midwife; ATTEND Advanced Practice Midwife

== ENCOUNTER 2018-11-21 20:32 | Observation (INO) ==
[2018-11-21 21:17] LABS: Amphetamine Screen,Urine Negative ng/mL (Cutoff=1000); Barbiturate Screen,Urine Positive ng/mL (Cutoff=200); Benzodiazepines Screen,Urine Negative ng/mL (Cutoff=200); Cannabinoid Screen,Urine Negative ng/mL (Cutoff = 50); Cocaine Screen,Urine Negative ng/mL (Cutoff= 300); Opiate Screen,Urine Negative ng/mL (Cutoff=300); Phencyclidine Screen,Urine Negative ng/mL (Cutoff=25)
== END 2018-11-21 21:45 | disposition home or self-care (01) ==
LOC: 1NENULAB
PROVIDERS: ADMIT Advanced Practice Midwife; ATTEND Advanced Practice Midwife

== ENCOUNTER 2018-12-08 22:42 | Observation (INO) ==
[2018-12-08 18:54] LABS: Basophils % 0.3 %; Eosinophils # 0.2 K/mcL (0.0-0.6); Eosinophils % 1.6 %; Hemoglobin 10.4 g/dL (11.5-15.4); Immature Granulocytes % 0.5 % (0-4); Lymphocytes # 2.2 K/mcL (0.6-4.6); Lymphocytes % 19.1 %; Mean Corpuscular HGB Conc 33.5 g/dL (31.6-35.5); Mean Corpuscular Hemoglobin 29.5 pg (28.0-33.3); Mean Corpuscular Volume 88.1 fL (83.0-100.0); Mean Platelet Volume 11.9 fL (9.4-12.4); Monocytes # 0.5 K/mcL (0.0-1.3); Monocytes % 4.7 %; Neutrophils # 8.3 K/mcL (1.6-8.9); Platelet Count 259 K/mcL (140-400); Red Blood Count 3.52 M/mcL (3.82-4.97); Red Cell Distribution Width 13.7 % (11.5-14.5); Segmented Neutrophils % 73.8 %; White Blood Count 11.3 K/mcL (4.3-11.1)
[2018-12-08 18:58] LABS: Amphetamine Screen,Urine Negative ng/mL (Cutoff=1000); Barbiturate Screen,Urine Negative ng/mL (Cutoff=200); Benzodiazepines Screen,Urine Negative ng/mL (Cutoff=200); Cannabinoid Screen,Urine Negative ng/mL (Cutoff = 50); Cocaine Screen,Urine Negative ng/mL (Cutoff= 300); Opiate Screen,Urine Negative ng/mL (Cutoff=300); Phencyclidine Screen,Urine Negative ng/mL (Cutoff=25)
[2018-12-08 19:22] LABS: Bilirubin,Urine Negative (Negative); Blood,Urine Negative (Negative); Clarity,Urine Clear (Clear); Color,Urine Yellow (Yellow); Glucose,Urine (UA) Normal (Normal); Ketones,Urine Negative (Negative); Leukocyte Esterase,Urine Negative (Negative); Nitrite,Urine Negative (Negative); Protein,Urine Negative (Neg-Trace); Specific Gravity,Urine 1.014 (1.010-1.025); Urobilinogen,Urine Normal (Normal)
--- NOTE | 2018-12-08 22:23 | OB/GYN Progress Note ---
Date of Encounter: 12/08/18 Time of Encounter: 22:20 - Assessment and Plan (1) 27 weeks gestation of Current Visit: No Status: Acute Admit to observation due to flank pain/hydronephrosis (2) Flank pain Current Visit: No Status: Acute Right flank pain associated with hydronephrosis in Pain medication ordered as needed (3) Hydronephrosis, right Current Visit: No Status: Acute Continue IV fluid Strain urine (4) Nausea and vomiting in Current Visit: No Status: Acute IV Zofran ordered as needed for nausea Subjective - Subjective Principal diagnosis: Flank pain Interval history: Promise arrives today with complaint of severe right flank pain that was not relieved by the Percocet she is prescribed. She was seen in the office today for routine visit. FHR is reactive and appropriate for gestational age. Retroperitoneum ultrasound was completed with minimal change from previous scan approximately one month prior. Still showing moderate hydronephrosis. Both ureteral jets were visualized in the scan and last scan was unable to visualize the right jet. NO notation of kidney stones was noted on this ultrasound although images reviewed by resident showed stones within the right kidney. Patient was given IV pain medication as well as Phenergan for her nausea and reports moderate relief of symptoms. Dicussed case with Dr. Del Rio who advised to give patient option to stay overnight, be discharged home, or discuss transfer to [facility]. These options were discussed with the patient and she prefers to stay overnight for IV hydration and pain control since she drove herself to the hospital today. Promise states that she has an appointment with urology (Dr. Dove) on Friday of this week. Will keep patient overnight and plan for discharge in the AM when patient states her mother can pick her up. Antepartum ROS: movement normal, no loss of fluid, no vaginal bleeding, no contractions Objective - Vital Signs Vital Signs: Intake and Output 12/08/18 12/08/18 12/08/18 07:59 15:59 23:59 Other: Weight 94.4 kg Patient Weight 12/08/18 23:59 Weight 94.4 kg - Exam FHR: auscultation normal, category 1 FHR comments: FHR appropriate for gestational age. Auscultation: bilateral: normal Abdomen: Present: normal appearance, soft, gravid. Absent: distention, tenderness Uterus: Present: normal - Labs Labs: Abnormal lab results WBC 11.3 K/mcL (4.3-11.1) H 12/08/18 18:37 RBC 3.52 M/mcL (3.82-4.97) L 12/08/18 18:37 Hgb 10.4 g/dL (11.5-15.4) L 12/08/18 18:37 Hct 31.0 % (35.3-44.9) L 12/08/18 18:37
[~2018-12-08 22:42] MED LIST changes: -*HR* FentaNYL (PF) 100 MCG/2 ML VIAL IVP ONE; +*HR* Meperidine 50 MG/ML SYRINGE IVP ONE; -*HR* OxyCODONE Immed Rel 5 MG TABLET PO PRN; -Ondansetron ODT 4 MG TAB.RAPDIS SL PRN; +Ringers Solution, Lactated 1,000 ML IVC SCH
[2018-12-08] MEDS ORDERED: Oxymetazoline Nasal SPRAY BOTTLE NS PRN (22:43)
[2018-12-09] MEDS: Ondansetron 4 MG/2 ML VIAL IVP PRN ×2 (01:08→07:45)
[2018-12-09] MEDS: *HR* Meperidine 25 MG/ML SYRINGE IVP PRN ×2 (01:11→07:47)
--- NOTE | 2018-12-09 08:15 | Discharge Summary ---
Date of Encounter: 12/09/18 Time of Encounter: 08:15 - Discharge Diagnosis (1) 29 weeks gestation of Priority: Primary Status: Acute Comments: Admitted to observation for c/o flank pain (2) Flank pain Priority: Secondary Status: Acute Comments: Pain medication as prescribed (3) Hydronephrosis, right Priority: Secondary Status: Acute Comments: Follow up with urology on Friday12/11/18 as scheduled (4) Nausea and vomiting in Priority: Secondary Status: Acute Comments: Patient has Zofran at home for nausea - Discharge Medications Prescriptions: No Action Promethazine [Phenergan] 12.5 mg PO Q6HR #30 tablet Caplet 1 tab PO DAILY Ferrous Sulfate 325 mg PO BIDWM tablet Oxycodone HCl/Acetaminophen [Percocet 5-325 mg Tablet] 1 each PO Q6H PRN 4 Days #16 tablet PRN Reason: Pain Acetaminophen/Butalbital/Caffe [Fioricet] 1 each PO Q6HR PRN PRN Reason: Migraine Headache Acetaminophen [Tylenol] 1,000 mg PO Q6HR PRN PRN Reason: Fever Home Medications: Promethazine [Phenergan] 12.5 mg PO Q6HR #30 tablet 10/17/18 [Rx] Caplet 1 tab PO DAILY 11/10/18 [History] Ferrous Sulfate 325 mg PO BIDWM tablet 11/12/18 [Rx] Oxycodone HCl/Acetaminophen [Percocet 5-325 mg Tablet] 1 each PO Q6H PRN 4 Days #16 tablet 11/12/18 [Rx] Acetaminophen [Tylenol] 1,000 mg PO Q6HR PRN 11/19/18 [History] Acetaminophen/Butalbital/Caffe [Fioricet] 1 each PO Q6HR PRN 11/19/18 [History] Allergies/Adverse Reactions: Allergy/AdvReac Type Severity Reaction Status Date / Time hydrocodone [From Vicodin] AdvReac Vomiting Verified 10/13/18 15:10 Data Procedures and tests throughout hospitalization: Laboratory Tests 12/08/18 12/08/18 12/08/18 18:36 18:36 18:37 WBC 11.3 H RBC 3.52 L Hgb 10.4 L Hct 31.0 L MCV 88.1 MCH 29.5 MCHC 33.5 RDW 13.7 Plt Count 259 MPV 11.9 Immature Gran % 0.5 Seg Neutrophils % 73.8 Lymphocytes % 19.1 Monocytes % 4.7 Eosinophils % 1.6 Basophils % 0.3 Neutrophils # 8.3 Lymphocytes # 2.2 Monocytes # 0.5 Eosinophils # 0.2 Basophils # 0.0 Urine Color Yellow Urine Clarity Clear Urine pH 8.0 Ur Specific [place] 1.014 Urine Protein Negative Urine Glucose (UA) Normal Urine Ketones Negative Urine Blood Negative Urine Nitrite Negative Urine Bilirubin Negative Urine Urobilinogen Normal Ur Leukocyte Esterase Negative Ur Culture Indicated? NO Urine Opiates Screen Negative Ur Buprenorphine Scrn Negative Ur Barbiturates Screen Negative Ur Phencyclidine Scrn Negative Ur Amphetamines Screen Negative U Benzodiazepines Scrn Negative Urine Cocaine Screen Negative U Marijuana (THC) Screen Negative Ur Drug Screen Interp See Below Labs on day of discharge: Labs from last 24 hours 12/08/18 12/08/18 12/08/18 18:37 18:36 18:36 WBC 11.3 H RBC 3.52 L Hgb 10.4 L Hct 31.0 L MCV 88.1 MCH 29.5 MCHC 33.5 RDW 13.7 Plt Count 259 MPV 11.9 Immature Gran % 0.5 Seg Neutrophils % 73.8 Lymphocytes % 19.1 Monocytes % 4.7 Eosinophils % 1.6 Basophils % 0.3 Neutrophils # 8.3 Lymphocytes # 2.2 Monocytes # 0.5 Eosinophils # 0.2 Basophils # 0.0 Urine Color Yellow Urine Clarity Clear Urine pH 8.0 Ur Specific [place] 1.014 Urine Protein Negative Urine Glucose (UA) Normal Urine Ketones Negative Urine Blood Negative Urine Nitrite Negative Urine Bilirubin Negative Urine Urobilinogen Normal Ur Leukocyte Esterase Negative Ur Culture Indicated? NO Urine Opiates Screen Negative Ur Buprenorphine Scrn Negative Ur Barbiturates Screen Negative Ur Phencyclidine Scrn Negative Ur Amphetamines Screen Negative U Benzodiazepines Scrn Negative Urine Cocaine Screen Negative U Marijuana (THC) Screen Negative Ur Drug Screen Interp See Below - Impressions ITS Impressions Retroperitoneum Ultrasound 12/08/18 20:00 IMPRESSION: Moderate right-sided hydronephrosis which may be slightly increased compared to the prior study. Bilateral ureteral jets visualized. D/ / Ezra Farr MD / Erza Farr MD Interpreting Provider: Ezra Farr MD Date of admission: 12/08/18 18:16 Primary care physician: PCP NONE Discharging clinician: Lenka Ohara Anticipated date of discharge: 12/09/18 - Patient Status Disposition: Home, Self-Care Condition: Good Functional capacity at discharge: independent ambulation Overall status at discharge: patient is progressing back to baseline - Discharge Instructions Follow Up With: NONE,PCP [Primary Care Provider] - - Diet and Activity Activity: resume usual activities as tolerated Diet: regular diet Hospital Course [employer] Hospital course: Patient was admitted overnight fo pain management due to kidney stone/ hydronephrosis. She has been followed throughout the last several weeks for this same problem. FHR is appropriate for gestational age, no uterine activity, no vaginal bleeding or fluid leakage. Pain medication has been given throughout the night as well as nausea medication with satisfactory pain relief. Patient will be picked up by her mother today and is to follow up with Dr. Dove with urology on 12/11/18 as scheduled. She is to return to her OB provider as scheduled for routine care. Time Attestation: Total time spent providing and/or coordinating discharge services: Time Spent: Less than 30 minutes Exam - Constitutional Vitals: Temp Pulse Resp BP Pulse Ox 97.8 F 94 15 96/67 98 12/09/18 06:27 12/09/18 06:27 12/09/18 06:27 12/09/18 06:27 12/09/18 06:27 General appearance IM: A&O X 3, pleasant, no acute distress, answers questions appropriately - Respiratory Respiratory exam: Present: CTAB. Absent: respiratory distress - Cardiovascular Cardiovascular exam IM: Present: RRR, +S1, +S2. Absent: irregular rhythm - GI/Abdominal GI/Abdominal exam IM: normal bowel sounds, soft - Rectal Rectal exam: deferred - Extremities Exam Extremities exam IM: Present: full ROM, normal capillary refill, normal inspection. Absent: calf tenderness - Neurological Exam Neurological exam: alert, normal gait, oriented X3 - Other Additional findings: Significant left sided CVA tenderness - VTE Reasons for not Prescribing Prophylaxis: Treatment not Indicated - Low risk for VTE
[2018-12-09 08:23] VITALS: BP 104/73
== END 2018-12-09 08:45 | disposition home or self-care (01) ==
LOC: 1NENULAB → 1NENUPED 22:42
PROVIDERS: ADMIT Registered Nurse; ATTEND Registered Nurse

== ENCOUNTER 2018-12-22 15:05 | Observation (INO) ==
[2018-12-22 11:03] LABS: Bilirubin,Urine Negative (Negative); Blood,Urine Moderate (Negative); Clarity,Urine Cloudy (Clear); Color,Urine Yellow (Yellow); Glucose,Urine (UA) Normal (Normal); Ketones,Urine Negative (Negative); Leukocyte Esterase,Urine Moderate (Negative); Nitrite,Urine Negative (Negative); PH,Urine 6.5 pH Units (5.0-8.0); Protein,Urine 30 mg/dL (Neg-Trace); Specific Gravity,Urine 1.023 (1.010-1.025); Urobilinogen,Urine Normal (Normal)
[2018-12-22 11:05] LABS: Bacteria,Urine Many per hpf (None-Few); Hyaline Casts,Urine Moderate per lpf (None-Few); Squamous Epithelial Cell,Urine Many per lpf (None-Few); WBC,Urine 50-100 per hpf (0-3)
[2018-12-22] MEDS: Ringers Solution, Lactated 1,000 ML IVC ONE ×2 (11:14→14:23)
[2018-12-22 11:16] LABS: Amphetamine Screen,Urine Negative ng/mL (Cutoff=1000); Barbiturate Screen,Urine Negative ng/mL (Cutoff=200); Benzodiazepines Screen,Urine Negative ng/mL (Cutoff=200); Cannabinoid Screen,Urine Negative ng/mL (Cutoff = 50); Cocaine Screen,Urine Negative ng/mL (Cutoff= 300); Opiate Screen,Urine Negative ng/mL (Cutoff=300); Phencyclidine Screen,Urine Negative ng/mL (Cutoff=25)
[2018-12-22 11:30] LABS: Amorphous Sediment,Urine Few (Few)
[2018-12-22 12:02] LABS: Basophils % 0.3 %; Eosinophils # 0.2 K/mcL (0.0-0.6); Eosinophils % 1.6 %; Hematocrit 31.6 % (35.3-44.9); Hemoglobin 10.1 g/dL (11.5-15.4); Immature Granulocytes % 0.7 % (0-4); Lymphocytes # 2.2 K/mcL (0.6-4.6); Lymphocytes % 16.7 %; Mean Corpuscular Hemoglobin 28.9 pg (28.0-33.3); Mean Corpuscular Volume 90.3 fL (83.0-100.0); Mean Platelet Volume 10.9 fL (9.4-12.4); Monocytes # 0.5 K/mcL (0.0-1.3); Monocytes % 3.7 %; Neutrophils # 10.3 K/mcL (1.6-8.9); Platelet Count 269 K/mcL (140-400); Red Cell Distribution Width 13.3 % (11.5-14.5); White Blood Count 13.4 K/mcL (4.3-11.1)
[2018-12-22 12:27] LABS: BUN/Creatinine Ratio 13 (6-26); Blood Urea Nitrogen 5 mg/dL (6-20); Calcium 8.6 mg/dL (8.6-10.3); Carbon Dioxide 20 mEq/L (23-29); Chloride 105 mEq/L (98-107); Glucose 85 mg/dL (70-105); Osmolality,Calculated 275 (280-300); Potassium 3.9 mEq/L (3.5-5.1); Sodium 134 mEq/L (136-145); eGFR For African Americans > 60 (> 60); eGFR For Non-African Americans > 60 (> 60)
[2018-12-22] MEDS: *HR* Meperidine 25 MG/ML SYRINGE IVP PRN ×3 (13:52→23:37)
[~2018-12-22 15:05] MED LIST changes: -*HR* Meperidine 50 MG/ML SYRINGE IVP ONE; -*HR* Promethazine 25 MG/ML VIAL IVP ONE; +0.9 % Sodium Chloride Mini Bag 100 ML ONE; +Morphine Sulfate 2 MG/ML SYRINGE IVP ONE; +Ondansetron 4 MG/2 ML VIAL IVP ONE; -Ringers Solution, Lactated 1,000 ML IVC SCH; +Ringers Solution, Lactated 1,000 ML ONE; +cefTRIAXone 1,000 MG in Water for inj. (sterile) 10 ML IVPB ONE
--- NOTE | 2018-12-22 15:49 | Electrocardiograph Report ---
[address] [address] Test Date: 2018-12-22 Pat Name: Promise Martinez Department: 101 Room: 3A44 Gender: F Product Support Manager: EMHJRB : [id number] Requested By: Aimee Avalos Order Number: [id number] Reading MD: Marycruz Romero Measurements Intervals Superior Rate: 95 P: 56 ID: [id number] QRS: 39 QRSD: 81 T: 32 QT: 353 QTc: 405 Interpretive Statements SINUS RHYTHM Electronically Signed On 12-22-2018 15:47:44 EDT by Marycruz Romero
[2018-12-22] MEDS: *HR* Promethazine 25 MG/ML VIAL IVP PRN (17:08)
[2018-12-22] MEDS: Ondansetron 4 MG/2 ML VIAL IVP PRN (22:09)
[2018-12-23] MEDS: *HR* Meperidine 25 MG/ML SYRINGE IVP PRN ×5 (04:07→21:51)
[2018-12-23] MEDS: *HR* Promethazine 25 MG/ML VIAL IVP PRN ×2 (04:50→16:50)
[2018-12-23] MEDS: Ondansetron 4 MG/2 ML VIAL IVP PRN ×2 (08:34→22:57)
[2018-12-23] MEDS ORDERED: cefTRIAXone 1,000 MG in Water for inj. (sterile) 10 ML IVP SCH (12:00)
[2018-12-23 18:47] LABS: Basophils % 0.3 %; Eosinophils # 0.3 K/mcL (0.0-0.6); Eosinophils % 2.4 %; Hematocrit 30.5 % (35.3-44.9); Hemoglobin 10.2 g/dL (11.5-15.4); Immature Granulocytes % 0.4 % (0-4); Lymphocytes # 2.2 K/mcL (0.6-4.6); Lymphocytes % 20.5 %; Mean Corpuscular HGB Conc 33.4 g/dL (31.6-35.5); Mean Corpuscular Hemoglobin 29.8 pg (28.0-33.3); Mean Corpuscular Volume 89.2 fL (83.0-100.0); Mean Platelet Volume 12.2 fL (9.4-12.4); Monocytes # 0.5 K/mcL (0.0-1.3); Monocytes % 4.7 %; Neutrophils # 7.6 K/mcL (1.6-8.9); Nucleated Red Blood Cells 0.2 /100 WBC (0); Platelet Count 349 K/mcL (140-400); Red Blood Count 3.42 M/mcL (3.82-4.97); Red Cell Distribution Width 13.6 % (11.5-14.5); Segmented Neutrophils % 71.7 %; White Blood Count 10.6 K/mcL (4.3-11.1)
[2018-12-23 19:08] LABS: Platelet Estimate Normal (Normal)
--- NOTE | 2018-12-23 19:41 | Discharge Summary ---
Date of Encounter: 12/23/18 Time of Encounter: 19:43 - Discharge Diagnosis (1) Urinary tract infection affecting care of mother in third trimester, antepartum Priority: Primary Status: Acute Comments: pain management, hydration, iv antibiotics (2) 31 weeks gestation of Priority: Secondary Status: Acute Comments: daily NST - Discharge Medications Prescriptions: New Cephalexin [Keflex] 500 mg PO BID 5 Days #10 capsule Continued Pnv No.95/Ferrous Fum/Folic AC [ Caplet] 1 cap PO DAILY #0 Ferrous Sulfate 325 mg PO DAILY Home Medications: Pnv No.95/Ferrous Fum/Folic AC [ Caplet] 1 cap PO DAILY #0 11/10/18 [History] Ferrous Sulfate 325 mg PO DAILY 12/22/18 [History] Cephalexin [Keflex] 500 mg PO BID 5 Days #10 capsule 12/23/18 [Rx] Allergies/Adverse Reactions: Allergy/AdvReac Type Severity Reaction Status Date / Time hydrocodone [From Vicodin] AdvReac Vomiting Verified 12/19/18 12:44 Data Procedures and tests throughout hospitalization: Laboratory Tests 12/22/18 12/22/18 12/22/18 10:42 10:42 11:05 WBC RBC Hgb Hct MCV MCH MCHC RDW Plt Count MPV Immature Gran % Seg Neutrophils % Lymphocytes % Monocytes % Eosinophils % Basophils % Neutrophils # Lymphocytes # Monocytes # Eosinophils # Basophils # Nucleated RBCs/100 WBC Platelet Estimate Sodium 134 L Potassium 3.9 Chloride 105 Carbon Dioxide 20 L BUN 5 L Creatinine 0.39 L Est GFR ( Amer) > 60 Est GFR (Non-Af Amer) > 60 BUN/Creatinine Ratio 13 Glucose 85 Calculated Osmolality 275 L Calcium 8.6 Urine Color Yellow Urine Clarity Cloudy A Urine pH 6.5 Ur Specific [place] 1.023 Urine Protein 30 H Urine Glucose (UA) Normal Urine Ketones Negative Urine Blood Moderate H Urine Nitrite Negative Urine Bilirubin Negative Urine Urobilinogen Normal Ur Leukocyte Esterase Moderate H Urine Microscopic RBC 5-15 H Urine Microscopic WBC 50-100 H Ur Squamous Epith Cells Many H Amorphous Sediment Few Urine Bacteria Many H Hyaline Casts Moderate H Ur Culture Indicated? YES A Urine Opiates Screen Negative Ur Buprenorphine Scrn Negative Ur Barbiturates Screen Negative Ur Phencyclidine Scrn Negative Ur Amphetamines Screen Negative U Benzodiazepines Scrn Negative Urine Cocaine Screen Negative U Marijuana (THC) Screen Negative Ur Drug Screen Interp See Below 12/22/18 12/23/18 11:10 17:32 WBC 13.4 H 10.6 RBC 3.50 L 3.42 L Hgb 10.1 L 10.2 L Hct 31.6 L 30.5 L MCV 90.3 89.2 MCH 28.9 29.8 MCHC 32.0 33.4 RDW 13.3 13.6 Plt Count 269 349 MPV 10.9 12.2 Immature Gran % 0.7 0.4 Seg Neutrophils % 77.0 71.7 Lymphocytes % 16.7 20.5 Monocytes % 3.7 4.7 Eosinophils % 1.6 2.4 Basophils % 0.3 0.3 Neutrophils # 10.3 H 7.6 Lymphocytes # 2.2 2.2 Monocytes # 0.5 0.5 Eosinophils # 0.2 0.3 Basophils # 0.0 0.0 Nucleated RBCs/100 WBC 0.2 H Platelet Estimate Normal Sodium Potassium Chloride Carbon Dioxide BUN Creatinine Est GFR ( Amer) Est GFR (Non-Af Amer) BUN/Creatinine Ratio Glucose Calculated Osmolality Calcium Urine Color Urine Clarity Urine pH Ur Specific [place] Urine Protein Urine Glucose (UA) Urine Ketones Urine Blood Urine Nitrite Urine Bilirubin Urine Urobilinogen Ur Leukocyte Esterase Urine Microscopic RBC Urine Microscopic WBC Ur Squamous Epith Cells Amorphous Sediment Urine Bacteria Hyaline Casts Ur Culture Indicated? Urine Opiates Screen Ur Buprenorphine Scrn Ur Barbiturates Screen Ur Phencyclidine Scrn Ur Amphetamines Screen U Benzodiazepines Scrn Urine Cocaine Screen U Marijuana (THC) Screen Ur Drug Screen Interp Labs on day of discharge: Labs from last 24 hours 12/23/18 17:32 WBC 10.6 RBC 3.42 L Hgb 10.2 L Hct 30.5 L MCV 89.2 MCH 29.8 MCHC 33.4 RDW 13.6 Plt Count 349 MPV 12.2 Immature Gran % 0.4 Seg Neutrophils % 71.7 Lymphocytes % 20.5 Monocytes % 4.7 Eosinophils % 2.4 Basophils % 0.3 Neutrophils # 7.6 Lymphocytes # 2.2 Monocytes # 0.5 Eosinophils # 0.3 Basophils # 0.0 Nucleated RBCs/100 WBC 0.2 H Platelet Estimate Normal Date of admission: 12/22/18 10:19 Primary care physician: PCP NONE Discharging clinician: Marycruz Toscano Anticipated date of discharge: 09/18/19 - Patient Status Disposition: Home, Self-Care Condition: Good Functional capacity at discharge: independent ambulation Overall status at discharge: patient is progressing back to baseline - Discharge Instructions Follow Up With: NONE,PCP [Primary Care Provider] - Additional Instructions: increase fluid intake tylenol for back pain heating pad, warm bath with assistance - Diet and Activity Activity: increase activity as tolerated Diet: advance to your usual diet Hospital Course PATENT COUNSEL Reason for admission: other (flank pain, positive urinalysis, history of renal stones, 31 week ) Discharge diagnosis: other (same) Pertinent studies: urinalysis, culture, cbc, renal function Hospital course: Age is a 28-year-old 3 para 2 female who presented to the hospital 31 weeks gestation. She complains of progressively worsening back pain that radiated around to her groin. Urinary frequency and discomfort. Urinalysis was performed and demonstrated evidence of any urinary tract infection. She does have a history of kidney stones. She has had to be treated with this throughout her . Current evaluation was negative for kidney stones. Her white blood cell count was mildly elevated on admission but are not follow-up with down to normal. Blood counts are slightly anemic that had not changed from her prior admission. Her urine creatinine was 0.39. Excellent urinary outflow was observed. During her hospital stay, labs were followed serially, examination was followed, monitoring was performed, culture came back with contaminant. She continued to be afebrile. She was discharged home with antibiotics and follow up with her primary OB providers. As she has no active evidence of kidney stone, tylenol was recommended for pain management. She will increase her fluid intake. Warm bath. Heating pads. Time Attestation: Total time spent providing and/or coordinating discharge services: Exam - Constitutional Vitals: Temp Pulse Resp BP Pulse Ox 98.0 F 91 16 105/72 99 12/23/18 14:35 12/23/18 14:35 12/23/18 14:35 12/23/18 14:35 12/23/18 14:35 General appearance IM: A&O X 0, no acute distress, answers questions appropriately - Respiratory Respiratory exam: Present: CTAB - Cardiovascular Cardiovascular exam IM: Present: RRR - GI/Abdominal GI/Abdominal exam IM: normal bowel sounds, soft - Extremities Exam Extremities exam IM: Present: full ROM, normal inspection - Other Additional findings: Back: no CVA tenderness Uterus: Reactive NST, soft, nontender, active fetus - VTE Reasons for not Prescribing Prophylaxis: Treatment not Indicated - Low risk for VTE
[2018-12-23 20:41] VITALS: BP 93/61
--- NOTE | 2018-12-24 17:52 | OB/GYN History & Physical ---
Date of Encounter: 12/22/18 Time of Encounter: 17:00 Assessment and Plan (1) Pyelonephritis affecting in third trimester Status: Acute Admit to [facility] for 24 hours of antibiotics IV pain meds as needed Anticipate discharge home tomorrow (2) 31 weeks gestation of Status: Acute History of Present Illness Chief complaint: low back pain HPI: Ms. Martinez is a 28 year old female at 31 weeks 5 days gestation with an estimated date of of 02/18/19 dated by initial exam. She presents with complaint of recurring right flank pain. She reports a history of kidney stones during this . She states that she is also having cramping and possibly nba. She endorses good movement and denies leakage of fluid and vaginal bleeding. She has been followed by the midwives throughout her . She denies fever, chills, nausea, vomiting. Past Med Surg Social Fam HX - Past Medical History Medical history: GERD, kidney stones, migraine, other Additional medical history: REPEATED ED VISITS Psychiatric history: anxiety - Past Surgical History Surgical History: cholecystectomy, other Additional surgical history: lithotripsy - Social History Smoking Status: Former smoker Smokeless Tobacco Status: No Alcohol use: none Drug use: none - Family History Mother Adopted: No Family Member Ethnicity: Non- Living Status: Still Living Hx Family Cardiac Disorders: No Hx Family Respiratory Disorders: No Hx Family Cancer: No Hx Family GI Disorders: No Hx Family Genitourinary Disorders: No Hx Family Endocrine Disorder: No Hx Family Neuromuscular Disorders: No Hx Family Neurologic Disorders: No Hx Family HEENT Disorders: No Hx Family Autoimmune Disorders: No Obstetrical History - Pregnancies : 3 Para: 2 Term: 2 : 0 Ab's: 0 Livin Medications and Allergies Pnv No.95/Ferrous Fum/Folic AC [ Caplet] 1 cap PO DAILY #0 11/10/18 [History] Ferrous Sulfate 325 mg PO DAILY 12/22/18 [History] Cephalexin [Keflex] 500 mg PO BID 5 Days #10 capsule 12/23/18 [Rx] Allergy/AdvReac Type Severity Reaction Status Date / Time hydrocodone [From Vicodin] AdvReac Vomiting Verified 12/19/18 12:44 Review of System OB All systems PM: reviewed and no additional remarkable complaints except as stated - Genitourinary Genitourinary: as per HPI, flank pain Exam - Vital Signs Vital signs: Initial Vital Signs Temp Pulse Resp BP Pulse Ox 98.4 F 97 16 97/71 98 12/22/18 21:01 12/22/18 21:01 12/22/18 21:01 12/22/18 21:01 12/22/18 21:01 - Constitutional Constitutional: well developed, well nourished, moderate distress, morbidly obese - HEENT HEENT: Normocephaly, Mucus Membranes Moist - Neck Neck exam: full ROM - Lungs Respiratory exam: CTAB - Cardiovascular Cardiovascular exam: RRR, +S1, +S2 - Breasts Breast: bilateral: normal - Abdomen Abdomen: Present: bowel sounds normal, gravid, non tender - Extremities Extremities exam: full ROM, normal capillary refill, normal inspection, radial pulses palpable and symmetrical - Vagina Vagina: Present: normal moisture - Uterus Uterus exam: Present: normal size - Anus/Rectum Anus/Rectum: Present: normal perianal skin Results Result Diagrams: 12/23/18 17:32 12/22/18 11:05 Abnormal lab results WBC 13.4 K/mcL (4.3-11.1) H 12/22/18 11:10 RBC 3.42 M/mcL (3.82-4.97) L 12/23/18 17:32 Hgb 10.2 g/dL (11.5-15.4) L 12/23/18 17:32 Hct 30.5 % (35.3-44.9) L 12/23/18 17:32 Neutrophils # 10.3 K/mcL (1.6-8.9) H 12/22/18 11:10 Nucleated RBCs/100 WBC 0.2 /100 WBC (0) H 12/23/18 17:32 Sodium 134 mEq/L (136-145) L 12/22/18 11:05 Carbon Dioxide 20 mEq/L (23-29) L 12/22/18 11:05 BUN 5 mg/dL (6-20) L 12/22/18 11:05 Creatinine 0.39 mg/dL (0.60-1.20) L 12/22/18 11:05 Calculated Osmolality 275 (280-300) L 12/22/18 11:05 Urine Clarity Cloudy (Clear) A 12/22/18 10:42 Urine Protein 30 mg/dL (Neg-Trace) H 12/22/18 10:42 Urine Blood Moderate (Negative) H 12/22/18 10:42 Ur Leukocyte Esterase Moderate (Negative) H 12/22/18 10:42 Urine Microscopic RBC 5-15 per hpf (0-3) H 12/22/18 10:42 Urine Microscopic WBC 50-100 per hpf (0-3) H 12/22/18 10:42 Ur Squamous Epith Cells Many per lpf (None-Few) H 12/22/18 10:42 Urine Bacteria Many per hpf (None-Few) H 12/22/18 10:42 Hyaline Casts Moderate per lpf (None-Few) H 12/22/18 10:42 Ur Culture Indicated? YES (NO) A 12/22/18 10:42 All other labs normal. - VTE Reasons for not Prescribing Prophylaxis: Treatment not Indicated - Low risk for VTE
== END 2018-12-23 23:30 | disposition home or self-care (01) ==
LOC: 1NENULAB → 3ANU 15:05
PROVIDERS: ADMIT Advanced Practice Midwife; ATTEND Advanced Practice Midwife

== ENCOUNTER → 2019-01-09 00:58 | Observation (INO) ==
--- NOTE | 2019-01-08 21:23 | OB/GYN Progress Note ---
Date of Encounter: 01/08/19 Time of Encounter: 21:16 - Assessment and Plan (1) 34 weeks gestation of Current Visit: Yes Status: Acute Negative SSE. Vaginosis panel pending. (2) Vaginal discharge during in third trimester Current Visit: Yes Status: Acute (3) Flank pain Current Visit: No Status: Acute UA pending. (4) NST (non-stress test) reactive Current Visit: No Status: Acute Subjective - Subjective Interval history: 28 year-old presenting at 34w1d with c/o leaking fluid and flank pain. She denies bleeding or regular contractions. Good FM. She has a history of kidney stones in this and has been taking percocet intermittently when the pain is severe. She last took a percocet this am and it was her last one. Antepartum ROS: loss of fluid, movement normal, no vaginal bleeding, no contractions Objective - Vital Signs Vital Signs: Intake and Output 01/08/19 01/08/19 01/08/19 07:59 15:59 23:59 Other: Weight 95.6 kg Patient Weight 01/08/19 23:59 Weight 95.6 kg - Exam FHR: category 1 FHR comments: 145 RNST Auscultation: bilateral: normal Abdomen: Present: soft, gravid. Absent: tenderness Uterus: Absent: tenderness Cervical dilation: closed and thick Comments: SSE negative pooling, negative nitrazine, negative fern. Vaginosis panel collected. Mild CVAT
[2019-01-08 21:37] LABS: Amphetamine Screen,Urine Negative ng/mL (Cutoff=1000); Barbiturate Screen,Urine Negative ng/mL (Cutoff=200); Benzodiazepines Screen,Urine Negative ng/mL (Cutoff=200); Cannabinoid Screen,Urine Negative ng/mL (Cutoff = 50); Cocaine Screen,Urine Negative ng/mL (Cutoff= 300); Opiate Screen,Urine Negative ng/mL (Cutoff=300); Phencyclidine Screen,Urine Negative ng/mL (Cutoff=25)
[2019-01-08 22:08] LABS: Bilirubin,Urine Negative (Negative); Blood,Urine Moderate (Negative); Clarity,Urine Clear (Clear); Color,Urine Yellow (Yellow); Glucose,Urine (UA) Normal (Normal); Ketones,Urine Negative (Negative); Leukocyte Esterase,Urine Trace (Negative); Nitrite,Urine Negative (Negative); Protein,Urine Negative (Neg-Trace); Specific Gravity,Urine 1.019 (1.010-1.025); Urobilinogen,Urine Normal (Normal)
[2019-01-08 22:10] LABS: Bacteria,Urine Moderate per hpf (None-Few); Hyaline Casts,Urine Few per lpf (None-Few); Squamous Epithelial Cell,Urine Many per lpf (None-Few)
[2019-01-08 22:20] LABS: Calcium Oxalate Crystals,Urine Present; Mucus,Urine Few (Few)
[2019-01-08 22:34] LABS: Candida DNA Not Detected (Not Detect); Gardnerella DNA DETECTED (Not Detect); Trichomonas DNA Not Detected (Not Detect)
[~2019-01-09 00:58] MED LIST changes: -0.9 % Sodium Chloride Mini Bag 100 ML ONE; +Epidural Premix (fent/bupiv) 110 ML EP SCH; -Morphine Sulfate 2 MG/ML SYRINGE IVP ONE; -Ondansetron 4 MG/2 ML VIAL IVP ONE; +Ondansetron ODT 4 MG TAB.RAPDIS SL ONE; +Prochlorperazine 10 MG/2 ML VIAL IM ONE; -Ringers Solution, Lactated 1,000 ML ONE; -cefTRIAXone 1,000 MG in Water for inj. (sterile) 10 ML IVPB ONE
== END | disposition home or self-care (01) ==
LOC: 1NENULAB
PROVIDERS: ADMIT Registered Nurse; ATTEND Registered Nurse

== ENCOUNTER 2019-01-19 17:05 | Observation (INO) ==
[2019-01-19] MEDS ORDERED: Ringers Solution, Lactated 1,000 ML ONE (17:35)
[2019-01-19] MEDS ORDERED: Ringers Solution, Lactated 1,000 ML IVC SCH (17:45)
[2019-01-19] MEDS: *HR* Promethazine 25 MG/ML VIAL IVP PRN ×2 (18:12→21:26)
[2019-01-19 19:00] LABS: Bilirubin,Urine Negative (Negative); Blood,Urine Negative (Negative); Clarity,Urine Cloudy (Clear); Color,Urine Yellow (Yellow); Glucose,Urine (UA) Normal (Normal); Ketones,Urine Negative (Negative); Leukocyte Esterase,Urine Small (Negative); Nitrite,Urine Negative (Negative); PH,Urine 7.5 pH Units (5.0-8.0); Protein,Urine Negative (Neg-Trace); Specific Gravity,Urine 1.016 (1.010-1.025); Urobilinogen,Urine Normal (Normal)
[2019-01-19 19:01] LABS: Bacteria,Urine Moderate per hpf (None-Few); Basophils % 0.1 %; Eosinophils # 0.1 K/mcL (0.0-0.6); Eosinophils % 1.4 %; Hematocrit 31.6 % (35.3-44.9); Hemoglobin 10.2 g/dL (11.5-15.4); Hyaline Casts,Urine None Seen per lpf (None-Few); Immature Granulocytes % 0.6 % (0-4); Lymphocytes # 1.8 K/mcL (0.6-4.6); Lymphocytes % 19.9 %; Mean Corpuscular HGB Conc 32.3 g/dL (31.6-35.5); Mean Corpuscular Hemoglobin 28.5 pg (28.0-33.3); Mean Corpuscular Volume 88.3 fL (83.0-100.0); Mean Platelet Volume 11.4 fL (9.4-12.4); Monocytes # 0.5 K/mcL (0.0-1.3); Monocytes % 5.8 %; Neutrophils # 6.5 K/mcL (1.6-8.9); Platelet Count 263 K/mcL (140-400); RBC,Urine 0-3 per hpf (0-3); Red Blood Count 3.58 M/mcL (3.82-4.97); Red Cell Distribution Width 12.9 % (11.5-14.5); Segmented Neutrophils % 72.2 %; Squamous Epithelial Cell,Urine Many per lpf (None-Few)
[2019-01-19 19:05] LABS: Amphetamine Screen,Urine Negative ng/mL (Cutoff=1000); Barbiturate Screen,Urine Negative ng/mL (Cutoff=200); Benzodiazepines Screen,Urine Negative ng/mL (Cutoff=200); Cannabinoid Screen,Urine Negative ng/mL (Cutoff = 50); Cocaine Screen,Urine Negative ng/mL (Cutoff= 300); Opiate Screen,Urine Negative ng/mL (Cutoff=300); Phencyclidine Screen,Urine Negative ng/mL (Cutoff=25)
[2019-01-19 19:15] LABS: BUN/Creatinine Ratio 10 (6-26); Blood Urea Nitrogen 5 mg/dL (6-20); Calcium 9.1 mg/dL (8.6-10.3); Carbon Dioxide 20 mEq/L (23-29); Chloride 107 mEq/L (98-107); Glucose 78 mg/dL (70-105); Osmolality,Calculated 278 (280-300); Potassium 4.1 mEq/L (3.5-5.1); Sodium 136 mEq/L (136-145); eGFR For African Americans > 60 (> 60); eGFR For Non-African Americans > 60 (> 60)
[2019-01-19 19:24] LABS: Amorphous Sediment,Urine Few (Few)
[2019-01-19] MEDS: *HR* Meperidine 25 MG/ML SYRINGE IVP PRN ×2 (19:57→21:26)
[2019-01-19] MEDS ORDERED: Saline Nasal Spray 44 ML BOTTLE NS ONE (20:23)
== END 2019-01-19 23:00 | disposition home or self-care (01) ==
LOC: 1NENULAB
PROVIDERS: ADMIT Advanced Practice Midwife; ATTEND Advanced Practice Midwife

== ENCOUNTER 2019-01-20 21:52 | Observation (INO) ==
[2019-01-20 22:20] LABS: Bacteria,Urine Few per hpf (None-Few); Bilirubin,Urine Negative (Negative); Blood,Urine Trace-intact (Negative); Clarity,Urine Clear (Clear); Color,Urine Yellow (Yellow); Glucose,Urine (UA) Normal (Normal); Hyaline Casts,Urine None Seen per lpf (None-Few); Ketones,Urine Negative (Negative); Leukocyte Esterase,Urine Negative (Negative); Nitrite,Urine Negative (Negative); Protein,Urine Negative (Neg-Trace); RBC,Urine 0-3 per hpf (0-3); Specific Gravity,Urine 1.015 (1.010-1.025); Squamous Epithelial Cell,Urine Many per lpf (None-Few); Urobilinogen,Urine Normal (Normal)
[2019-01-20 23:13] LABS: Amphetamine Screen,Urine Negative ng/mL (Cutoff=1000); Barbiturate Screen,Urine Negative ng/mL (Cutoff=200); Benzodiazepines Screen,Urine Negative ng/mL (Cutoff=200); Cannabinoid Screen,Urine Negative ng/mL (Cutoff = 50); Cocaine Screen,Urine Negative ng/mL (Cutoff= 300); Opiate Screen,Urine Negative ng/mL (Cutoff=300); Phencyclidine Screen,Urine Negative ng/mL (Cutoff=25)
[2019-01-20] MEDS ORDERED: Ringers Solution, Lactated 1,000 ML IVC SCH (23:45)
[2019-01-20] MEDS ORDERED: Ondansetron 4 MG/2 ML VIAL ONE ×2 (23:57→23:58)
[2019-01-20] MEDS ORDERED: Ondansetron 8 MG in 0.9 % Sodium Chloride 50 ML IVPB ONE (23:59)
[2019-01-21 00:11] LABS: Basophils % 0.2 %; Eosinophils # 0.2 K/mcL (0.0-0.6); Eosinophils % 1.9 %; Hemoglobin 9.9 g/dL (11.5-15.4); Immature Granulocytes % 0.4 % (0-4); Lymphocytes # 2.3 K/mcL (0.6-4.6); Lymphocytes % 20.1 %; Mean Corpuscular HGB Conc 31.9 g/dL (31.6-35.5); Mean Corpuscular Hemoglobin 28.8 pg (28.0-33.3); Mean Corpuscular Volume 90.1 fL (83.0-100.0); Monocytes # 0.4 K/mcL (0.0-1.3); Monocytes % 3.6 %; Neutrophils # 8.4 K/mcL (1.6-8.9); Platelet Count 252 K/mcL (140-400); Red Blood Count 3.44 M/mcL (3.82-4.97); Red Cell Distribution Width 12.9 % (11.5-14.5); Segmented Neutrophils % 73.8 %; White Blood Count 11.4 K/mcL (4.3-11.1)
[2019-01-21] MEDS ORDERED: Ondansetron 4 MG/2 ML VIAL IVP ONE (00:15)
[2019-01-21] MEDS: *HR* Nalbuphine 10 MG/ML AMPUL IV PRN ×3 (00:28→09:01)
[2019-01-21] MEDS ORDERED: Famotidine 20 MG/2 ML VIAL IVP ONE (01:21)
[2019-01-21] MEDS ORDERED: Oxymetazoline Nasal SPRAY BOTTLE NS SCH (03:53)
[2019-01-21] MEDS ORDERED: *HR* Nalbuphine 10 MG/ML AMPUL IV ONE (04:35)
[2019-01-21] MEDS ORDERED: *HR* Promethazine 25 MG/ML VIAL IVP ONE (04:36)
[2019-01-21] MEDS ORDERED: *HR* Promethazine 25 MG/ML VIAL IVP PRN (08:39)
[2019-01-21 09:20] VITALS: BP 132/85
[2019-01-21] MEDS ORDERED: *HR* Meperidine 25 MG/ML SYRINGE IVP PRN (11:21)
== END 2019-01-21 12:15 | disposition other institution (70) ==
LOC: 1NENULAB → 1NENUOBS 01-21 09:15
PROVIDERS: ADMIT Registered Nurse; ATTEND Registered Nurse

== ENCOUNTER 2019-01-26 06:40 | Inpatient (IN) ==
[2019-01-25] MEDS: Ondansetron 4 MG/2 ML VIAL IVP PRN (23:55)
[2019-01-26 00:29] LABS: Bilirubin,Urine Small (Negative); Blood,Urine Large (Negative); Clarity,Urine Cloudy (Clear); Color,Urine Dark Yellow (Yellow); Glucose,Urine (UA) Normal (Normal); Ketones,Urine 40 mg/dL (Negative); Leukocyte Esterase,Urine Small (Negative); Nitrite,Urine Negative (Negative); PH,Urine 6.5 pH Units (5.0-8.0); Protein,Urine >=300 mg/dL (Neg-Trace); Specific Gravity,Urine 1.029 (1.010-1.025); Urobilinogen,Urine Normal (Normal)
[2019-01-26 00:32] LABS: Bacteria,Urine Moderate per hpf (None-Few); RBC,Urine TNTC per hpf (0-3); Squamous Epithelial Cell,Urine Many per lpf (None-Few); WBC,Urine 50-100 per hpf (0-3)
[2019-01-26 00:33] LABS: Alanine Aminotransferase 8 Units/L (7-52); Albumin 3.5 g/dL (3.5-5.7); Albumin/Globulin Ratio 1.3 (1.1-2.2); Alkaline Phosphatase 161 Units/L (34-104); Aspartate Amino Transferase 11 Units/L (13-39); BUN/Creatinine Ratio 9 (6-26); Bilirubin,Total 0.3 mg/dL (0.3-1.0); Blood Urea Nitrogen 5 mg/dL (6-20); Calcium 8.4 mg/dL (8.6-10.3); Carbon Dioxide 20 mEq/L (23-29); Chloride 106 mEq/L (98-107); Globulin 2.8 g/dL (2.4-3.5); Glucose 87 mg/dL (70-105); Osmolality,Calculated 275 (280-300); Potassium 3.7 mEq/L (3.5-5.1); Sodium 134 mEq/L (136-145); Total Protein 6.3 g/dL (6.4-8.9); eGFR For African Americans > 60 (> 60); eGFR For Non-African Americans > 60 (> 60)
[2019-01-26 00:46] LABS: Hyaline Casts,Urine Few per lpf (None-Few)
[2019-01-26] MEDS: ceFAZolin 1,000 MG in Water for inj. (sterile) 10 ML IVP SCH ×3 (00:48→16:08)
[2019-01-26] MEDS: *HR* Promethazine 25 MG/ML VIAL IVP PRN (02:54)
[2019-01-26] MEDS: *HR* HYDROmorphone 2 MG/ML SYRINGE IVP PRN ×3 (05:01→13:09)
[2019-01-26 06:04] LABS: Basophils % 0.2 %; Eosinophils # 0.2 K/mcL (0.0-0.6); Hematocrit 25.9 % (35.3-44.9); Immature Granulocytes % 0.6 % (0-4); Lymphocytes # 2.6 K/mcL (0.6-4.6); Lymphocytes % 27.3 %; Mean Corpuscular HGB Conc 34.7 g/dL (31.6-35.5); Mean Corpuscular Hemoglobin 29.4 pg (28.0-33.3); Mean Corpuscular Volume 84.6 fL (83.0-100.0); Mean Platelet Volume 10.5 fL (9.4-12.4); Monocytes # 0.4 K/mcL (0.0-1.3); Monocytes % 4.4 %; Neutrophils # 6.3 K/mcL (1.6-8.9); Platelet Count 246 K/mcL (140-400); Red Blood Count 3.06 M/mcL (3.82-4.97); Red Cell Distribution Width 12.9 % (11.5-14.5); Segmented Neutrophils % 65.5 %; White Blood Count 9.6 K/mcL (4.3-11.1)
[~2019-01-26 06:40] MED LIST changes: +*HR* HYDROmorphone (PF) 1 MG/ML SYRINGE IVP PRN; +*HR* HYDROmorphone 2 MG/ML SYRINGE IVP ONE; -Epidural Premix (fent/bupiv) 110 ML EP SCH; +Famotidine 20 MG/2 ML VIAL IVP ONE; +Famotidine 20 MG/2 ML VIAL IVP PRN; +Metoclopramide 10 MG/2 ML VIAL IVP PRN; +Naloxone 0.4 MG/ML INJ IVP PRN; -Ondansetron ODT 4 MG TAB.RAPDIS SL ONE; -Prochlorperazine 10 MG/2 ML VIAL IM ONE; +Ringers Solution, Lactated 1,000 ML IVC ONE; +Ringers Solution, Lactated 1,000 ML IVC SCH; +Ringers Solution, Lactated 1,000 ML ONE
[2019-01-26] MEDS: Ondansetron 4 MG/2 ML VIAL IVP PRN ×2 (09:50→18:27)
[2019-01-26] MEDS: Ringers Solution, Lactated 1,000 ML IVC SCH ×2 (11:32→18:56)
[2019-01-26] MEDS: Mag Hydrox/Al Hydrox/Simeth 30 ML UDC PO PRN ×2 (13:10→19:37)
[2019-01-26] MEDS: Acetaminophen IV 1,000 MG/100 ML INFUS..BTL IVPB SCH (15:42)
[2019-01-26] MEDS: *HR* HYDROmorphone (PF) 1 MG/ML SYRINGE IVP PRN ×2 (17:14→21:51)
[2019-01-27] MEDS: ceFAZolin 1,000 MG in Water for inj. (sterile) 10 ML IVP SCH ×3 (00:13→16:19)
[2019-01-27] MEDS: Acetaminophen IV 1,000 MG/100 ML INFUS..BTL IVPB SCH ×3 (00:14→16:25)
[2019-01-27] MEDS: *HR* HYDROmorphone (PF) 1 MG/ML SYRINGE IVP PRN ×4 (02:49→21:33)
[2019-01-27] MEDS: Mag Hydrox/Al Hydrox/Simeth 30 ML UDC PO PRN ×3 (02:49→20:22)
[2019-01-27] MEDS: Ringers Solution, Lactated 1,000 ML IVC SCH ×3 (02:49→18:53)
[2019-01-27] MEDS: *HR* Promethazine 25 MG/ML VIAL IVP PRN (22:53)
[2019-01-28] MEDS ORDERED: Ringers Solution, Lactated 1,000 ML IVC SCH (00:30)
[2019-01-28] MEDS ORDERED: miSOPROStol 25 MCG TABLET PO PRN (00:30)
[2019-01-28] MEDS ORDERED: Naloxone 0.4 MG/ML INJ IVP PRN (00:30)
[2019-01-28] MEDS ORDERED: Ondansetron 4 MG/2 ML VIAL IVP PRN (00:30)
[2019-01-28] MEDS ORDERED: Oxytocin 20 units/ LR 1000 mL 20 UNIT/1,000 ML BAG IVC SCH (00:30)
[2019-01-28] MEDS ORDERED: Famotidine 20 MG/2 ML VIAL IVP PRN (00:30)
[2019-01-28] MEDS ORDERED: Metoclopramide 10 MG/2 ML VIAL IVP PRN (00:30)
[2019-01-28] MEDS ORDERED: Mag Hydrox/Al Hydrox/Simeth 30 ML UDC PO PRN (00:30)
[2019-01-28] MEDS ORDERED: Epidural Premix (fent/bupiv) 110 ML EP ONE (00:36)
[2019-01-28] MEDS: Epidural Premix (fent/bupiv) 110 ML EP SCH ×2 (01:32→06:29)
[2019-01-28] MEDS ORDERED: Famotidine 20 MG/2 ML VIAL IVP ONE (04:48)
[2019-01-28] MEDS ORDERED: ceFAZolin 1,000 MG in Water for inj. (sterile) 10 ML IVP SCH (08:00)
[2019-01-28] MEDS ORDERED: Ropivacaine/PF 0.2% 20 ML VIAL EP ONE (09:51)
[2019-01-28] MEDS ORDERED: *HR* FentaNYL (PF) 100 MCG/2 ML VIAL EP ONE (09:51)
[2019-01-28] MEDS ORDERED: *HR* FentaNYL (PF) 100 MCG/2 ML VIAL ONE (09:53)
[2019-01-28] MEDS ORDERED: Ropivacaine/PF 0.2% 20 ML VIAL ONE (09:54)
[2019-01-28] MEDS ORDERED: *HR* Oxytocin 10 UNIT/ML VIAL IM ONE ×2 (10:46→15:28)
[2019-01-28] MEDS: Ibuprofen 600 MG TABLET PO PRN (16:43)
[2019-01-28] MEDS: Acetaminophen 325 MG TABLET PO PRN (20:29)
[2019-01-29] MEDS: Ibuprofen 600 MG TABLET PO PRN ×2 (02:54→23:40)
[2019-01-29] MEDS ORDERED: Ondansetron ODT 4 MG TAB.RAPDIS SL ONE (06:25)
[2019-01-29] MEDS ORDERED: *HR* Promethazine 25 MG/ML VIAL IM ONE (09:48)
[2019-01-29] MEDS: Prenatal Vit/FA 1 EACH TABLET PO SCH (09:49)
[2019-01-29] MEDS ORDERED: *HR* Promethazine 25 MG/ML VIAL ONE (09:52)
[2019-01-29] MEDS ORDERED: Morphine Sulfate 2 MG/ML SYRINGE IVP PRN (10:41)
[2019-01-29] MEDS: Ketorolac 30 MG/ML VIAL IVP SCH ×3 (12:15→21:27)
[2019-01-29] MEDS ORDERED: Ondansetron 4 MG/2 ML VIAL ONE (17:12)
[2019-01-29] MEDS: Ondansetron 4 MG/2 ML VIAL IVP PRN (17:14)
[2019-01-29] MEDS: *HR* HYDROmorphone (PF) 1 MG/ML SYRINGE IVP PRN (19:03)
[2019-01-30] MEDS: Ondansetron 4 MG/2 ML VIAL IVP PRN (01:11)
[2019-01-30] MEDS: *HR* HYDROmorphone (PF) 1 MG/ML SYRINGE IVP PRN (01:18)
[2019-01-30] MEDS: Ketorolac 30 MG/ML VIAL IVP SCH ×4 (05:21→20:29)
[2019-01-30] MEDS ORDERED: Isovue-300 50ML VIAL ONE (06:31)
[2019-01-30] MEDS ORDERED: *HR* Propofol 200 MG/20 ML VIAL IVP ONE (07:18)
[2019-01-30] MEDS ORDERED: *HR* FentaNYL (PF) 100 MCG/2 ML VIAL ONE (07:18)
[2019-01-30] MEDS ORDERED: Ondansetron 4 MG/2 ML VIAL ONE ×2 (07:19→09:01)
[2019-01-30] MEDS ORDERED: Dexamethasone 4 MG/ML VIAL ONE (07:19)
[2019-01-30] MEDS ORDERED: Lidocaine -MPF 2% 2 ML VIAL ONE (07:19)
[2019-01-30] MEDS ORDERED: *HR* Midazolam HCl 2 MG/2 ML VIAL ONE (07:22)
[2019-01-30] MEDS ORDERED: ceFAZolin 2,000 MG in Water for inj. (sterile) 20 ML IVP ONE (07:22)
[2019-01-30] MEDS ORDERED: *HR* PHENYLEPHRINE 1,000 MCG/10 ML SYRINGE IVP ONE (09:27)
[2019-01-30] MEDS ORDERED: *HR* OxyCODONE/APAP 10/325 TABLET ONE (13:43)
[2019-01-30] MEDS ORDERED: *HR* OxyCODONE/APAP 5/325 TABLET PO PRN (19:52)
[2019-01-30] MEDS ORDERED: *HR* Promethazine 25 MG/ML VIAL IVP PRN (20:15)
[2019-01-30] MEDS ORDERED: Ondansetron 4 MG/2 ML VIAL IVP PRN (20:15)
[2019-01-30] MEDS ORDERED: *HR* Belladonna Alkaloids/Opium 30 MG RECTAL SUPPOSITORY RC PRN (20:16)
[2019-01-30] MEDS: Ibuprofen 600 MG TABLET PO PRN (23:08)
[2019-01-30] MEDS: Acetaminophen 325 MG TABLET PO PRN (23:08)
[2019-01-30] MEDS ORDERED: Ondansetron ODT 4 MG TAB.RAPDIS SL PRN (23:51)
[2019-01-31] MEDS: *HR* OxyCODONE/APAP 5/325 TABLET PO SCH ×3 (00:02→08:03)
[2019-01-31] MEDS: Prenatal Vit/FA 1 EACH TABLET PO SCH (08:03)
[2019-01-31 08:54] VITALS: BP 94/53
[2019-02-04 10:52] LABS: Calculi Mass 18 mg
== END 2019-01-31 13:25 | disposition home or self-care (01) | DRG 560 ==
LOC: 1NENULAB → 1NENUOBS 06:40 → 1NENULAB 01-28 00:26 → 1NENUOBS 01-28 13:18
PROVIDERS: ADMIT Advanced Practice Midwife; ATTEND Advanced Practice Midwife